=== PATIENT | female | born 1945 | race Caucasian/White ===

== ENCOUNTER → 2018-08-14 07:40 | Outpatient (CLI) | payer OTHER, MEDICARE, SELFPAY ==
[2018-05-02 15:29] VITALS: BMI 23.1
--- NOTE | 2018-08-14 | DI.MG.S_ITS ---
BILATERAL DIGITAL SCREENING MAMMOGRAM 3D/2D WITH CAD: 08/14/2018 CLINICAL: Routine screening. Family history of breast cancer. Comparison is made to exams dated: 08/10/2017 mammogram, 07/27/2016 mammogram, and 07/22/2015 mammogram - [facility]. There are scattered fibroglandular elements in both breasts. Current study was also evaluated with a Computer Aided Detection (CAD) system. No significant masses, calcifications, or other findings are seen in either breast. There has been no significant interval change. IMPRESSION: NEGATIVE There is no mammographic evidence of malignancy. A 1 year screening mammogram is recommended. This exam was interpreted at Station ID: [id number]. NOTE: For mammograms, a report in lay terms will be sent to the patient. Approximately 15% of breast malignancies will not be visualized mammographically. In the management of a palpable breast mass, a negative mammogram must not discourage biopsy of a clinically suspicious lesion. Electronically Signed By: Siva gee/morales:08/14/2018 10:00:38 copy to: Anahi Malone letter sent: Normal Exam ACR BI-RADS Category 1: Negative [id number]
== END ==
PROVIDERS: PCP Family Medicine; Visit Provider Family Medicine
DX: Z12.31 Encounter for screening mammogram for malignant neoplasm of breast (principal); Z80.3 Family history of malignant neoplasm of breast
CPT/HCPCS: 77063; 77067

== ENCOUNTER → 2018-10-14 16:37 | Outpatient (CLI) | payer OTHER, MEDICARE, SELFPAY ==
[2018-05-02 15:29] VITALS: BMI 23.1
--- NOTE | 2018-10-14 16:41 | DI.RAD.S_ITS ---
PROCEDURE: XR CHEST 2V INDICATIONS: COPD EXACERBATION, POSSIBLE RECENT INFLUENZA TECHNIQUE: 2 views of the chest were acquired. COMPARISON: [facility], , CHEST 2 VIEW, 08/17/2017, 8:29. FINDINGS: Surgical changes and devices: None. Lungs and pleura: No acute consolidation. Scattered subsegmental atelectasis and/or scarring. No pleural effusions or pneumothorax. Lungs are hyperinflated in keeping with chronic obstructive physiology Mediastinum: Mediastinal contours are normal. Heart size is normal. Bones and chest wall: No suspicious bony abnormalities. Lateral curvature of the spine and discogenic changes. Soft tissues appear unremarkable. IMPRESSION: No acute disease or interval change. Dictated by: Duncan Reyes M.D. on 10/14/2018 at 17:33 Approved by: Duncan Reyes M.D. on 10/14/2018 at 17:34
== END ==
PROVIDERS: Family Provider Family Medicine; PCP Family Medicine; Visit Provider Internal Medicine
DX: J44.1 Chronic obstructive pulmonary disease with (acute) exacerbation (principal)
CPT/HCPCS: 71046

== ENCOUNTER → 2018-11-18 16:19 | Outpatient (CLI) | payer OTHER, MEDICARE, SELFPAY ==
[2018-05-02 15:29] VITALS: BMI 23.1
--- NOTE | 2018-11-18 16:23 | DI.RAD.S_ITS ---
PROCEDURE: XR CHEST 2V INDICATIONS: COPD,ACUTE EXACERBATION TECHNIQUE: 2 views of the chest were acquired. COMPARISON: [facility], CR, XR CHEST 2V, 10/14/2018, 16:45. FINDINGS: Surgical changes and devices: None. Lungs and pleura: No acute consolidation. Scattered subsegmental atelectasis and/or scarring. No pleural effusions or pneumothorax. Mediastinum: Mediastinal contours are normal. Heart size is normal. Bones and chest wall: No suspicious bony abnormalities. Scoliosis and diffuse spondylosis. Soft tissues appear unremarkable. IMPRESSION: No acute disease Dictated by: Duncan Reyes M.D. on 11/18/2018 at 17:02 Approved by: Duncan Reyes M.D. on 11/18/2018 at 17:02
== END ==
PROVIDERS: Family Provider Internal Medicine Critical Care Medicine; Visit Provider Internal Medicine
DX: J44.1 Chronic obstructive pulmonary disease with (acute) exacerbation (principal)
CPT/HCPCS: 71046

== ENCOUNTER 2019-01-28 16:18 | Inpatient (IN) | payer OTHER, MEDICARE, SELFPAY ==
[2018-05-02 15:29] VITALS: BMI 23.1
[2019-01-28] VITALS (12 sets, daily range): BP systolic 115–158; BP diastolic 63–88; PULSE 81–107; RESP 11–24; TEMP 36.2–37.4; O2SAT 89–99; BMI 22.3
--- NOTE | 2019-01-28 16:42 | ED_ITS ---
HPI - Abdominal Pain General Chief Complaint: Abdominal Pain Stated Complaint: abd pain x2 days Time Seen by Provider: 01/28/19 16:30 Source: patient Mode of arrival: ambulatory Limitations: no limitations History of Present Illness HPI narrative: 73F smoker with hx of COPD, diverticulitis, and RA presents with worsening left lower quadrant pain since yesterday. She has had nausea but no vomiting. She denies fever or chills. She still passing gas and has had loose stools for the past day or 2. Her pain is worse with motion and improves with rest. She was sent by her PCP for evaluation MD complaint: abdominal pain Onset (ago): day(s) Pain Consistency: constant Location: LLQ Severity: moderate Quality: cramping Relieving factors: nothing Exacerbating factors: movement Associated symptoms: nausea Related Data Home Medications Medication Instructions Recorded Confirmed Spiriva with HandiHaler 1 puff INH DAILY #0 09/14/17 01/28/19 Nebulizer: Home Unit 1 ea MISCELLANEOUS DIRECTED 01/28/19 01/28/19 Vitamin C 1 tab PO DAILY 01/28/19 01/28/19 acetaminophen 325 mg PO BID 01/28/19 01/28/19 fluticasone propion-salmeterol 1 puff INHALATION BID 01/28/19 01/28/19 [Advair Diskus] folic acid 1 mg PO DAILY 01/28/19 01/28/19 hydroxychloroquine 200 mg PO DAILY 01/28/19 01/28/19 naproxen 1 tab PO BID 01/28/19 01/28/19 tramadol 50 mg PO BID PRN 01/28/19 01/28/19 trazodone 50 mg PO BEDTIME 01/28/19 01/28/19 vitamin E 1 cap PO DAILY 01/28/19 01/28/19 Previous Rx's Medication Instructions Recorded albuterol sulfate [Ventolin HFA] 2 puff INH Q4H PRN #2 inh 09/15/16 omeprazole 20 mg capsule,delayed 20 mg PO DAILY #90 cap 07/22/18 release Allergies Allergy/AdvReac Type Severity Reaction Status Date / Time Sulfa (Sulfonamide Allergy Severe rash Verified 01/28/19 16:23 Antibiotics) [SULFA (SULFONAMIDE ANTIBIOTICS)] hydrocodone [HYDROCODONE] AdvReac Mild itching Verified 01/28/19 16:23 methotrexate [METHOTREXATE] AdvReac Mild hair loss Verified 01/28/19 16:23 Review of Systems Constitutional Denies chills, Denies fever(s), Denies lethargy and Denies weakness Eyes Denies change in vision, Denies eye discharge, Denies irritation and Denies loss of vision ENT Ears, Nose, Mouth, and Throat: Denies change in voice, Denies neck pain and Denies sore throat Cardiovascular Denies chest pain, Denies irregular heart rhythm, Denies lightheadedness, Denies palpitations, Denies dyspnea, Denies dyspnea on exertion and Denies orthopnea Respiratory Denies cough, Denies dyspnea, Denies dyspnea on exertion and Denies wheezing Gastrointestinal Gastrointestinal: Reports abdominal pain, Denies change in bowel habits, Denies diarrhea, Reports nausea and Denies vomiting Genitourinary Denies hematuria, Denies flank pain, Denies urinary incontinence and Denies urinary urgency Musculoskeletal Denies neck pain Integumentary/Breasts Denies pruritus, Denies erythema, Denies rash and Denies wounds Neurologic Denies confusion, Denies loss of vision and Denies weakness Psychiatric Denies anxiety, Denies confusion, Denies depression, Denies homicidal ideation and Denies suicidal ideation Endocrine Denies palpitations Hematologic/Lymphatic Denies easy bruising Allergic/Immunologic Denies wheezing PFSH Medical History COPD (chronic obstructive pulmonary disease) (Chronic) Surgical History History of (Resolved) Status post colonoscopy (09/28/10) Status post hysterectomy Family History Mother Malignant neoplasm of female breast, unspecified laterality, unspecified site of breast Social History Smoking Status: Former smoker Tobacco: How many years used: 40 Family History Mother Malignant neoplasm of female breast, unspecified laterality, unspecified site of breast Social History Smoking Status: Former smoker Tobacco: How many years used: 40 Exam Narrative Exam Narrative: GENERAL: 73F appears stated age, obviously uncomfortable HEAD: Atraumatic. Normocephalic. No temporal or scalp tenderness. EYES: Pupils equal round and reactive. Extraocular motions intact. No scleral icterus. No injection or drainage. ENT: Nose without bleeding, purulent drainage or septal hematoma. Throat without erythema, tonsillar hypertrophy or exudate. Uvula midline. Airway patent. NECK: Trachea midline. No JVD or lymphadenopathy. Supple, nontender, no meningeal signs. CARDIOVASCULAR: Regular rate and rhythm without murmurs, gallops, or rubs. RESPIRATORY: Clear to auscultation. Breath sounds equal bilaterally. No wheezes, rales, or rhonchi. GASTROINTESTINAL: Abdomen soft, severely tender in LLQ, nondistended. No hepato- splenomegaly, or palpable masses. No guarding. EXTREMITIES: No clubbing, cyanosis, or edema. No joint tenderness, effusion, or edema noted. BACK: Nontender without deformity or crepitance. No flank tenderness. NEURO: AOx3. SKIN: No rash or erythema. Initial Vital Signs Initial Vital Signs: Vital Signs Temperature 98.6 F 01/28/19 16:20 Pulse Rate 101 H 01/28/19 16:20 Respiratory Rate 18 01/28/19 16:20 Blood Pressure 146/70 H 01/28/19 16:20 Pulse Oximetry 96 01/28/19 16:20 Course Orders Ordered: ED Orders 01/28/19 16:24 EKG-12 Lead Stat 01/28/19 16:34 Urine Culture Stat Urine Microscopic Stat 01/28/19 16:58 Complete Blood Count AUTO DIFF Stat Comprehensive Metabolic Panel Stat Lipase Stat Partial Thromboplastin Time Stat Prothrombin Time INR Stat 01/28/19 17:21 CT abdomen pelvis w con Stat Ondansetron HCl (Zofran) 4 mg IV Q4HR PRN PRN Reason: Nausea And Vomiting Discontinued Medications Hydromorphone HCl (Dilaudid) 0.5 mg IV NOW ONE Stop: 01/28/19 18:11 Last Admin: 01/28/19 18:22 Dose: 0.5 mg Sodium Chloride (Normal Saline 0.9%) 1,000 mls @ 1,000 mls/hr IV BOLUS ONE Stop: 01/28/19 19:09 Last Infusion: 01/28/19 19:54 Dose: 0 mls/hr Admin: 01/28/19 18:22 Dose: 1,000 mls/hr Ondansetron HCl (Zofran) 4 mg IV NOW ONE Stop: 01/28/19 16:25 Last Admin: 01/28/19 17:17 Dose: Not Given Consultations Consultation #1: call to Gen Surg (Dr. Rojas) Vital Signs - 8 hr 01/28/19 16:20 01/28/19 16:58 01/28/19 17:30 Temperature 98.6 F Pulse Rate 101 H 94 H 92 H Respiratory Rate 18 Blood Pressure 146/70 H Blood Pressure [Left Arm] 133/77 132/63 Pulse Oximetry 96 99 96 01/28/19 18:30 01/28/19 18:54 Temperature Pulse Rate 96 H 98 H Respiratory Rate 17 Blood Pressure Blood Pressure [Left Arm] 141/82 H 141/82 H Pulse Oximetry 95 97 MDM - Abdominal Pain Lab Data Result diagrams: 01/28/19 16:58 01/28/19 16:58 Lab Results 01/28/19 01/28/19 01/28/19 Range/Units 16:34 16:58 16:58 WBC 13.6 H (4.5-11.0) X10^3/uL RBC 4.38 (4.0-5.2) X10^6/uL Hgb 11.6 L (12.0-16.0) g/dL Hct 35.5 L (36-46) % MCV 81.1 (80-100) fL MCH 26.4 (26-34) PG MCHC 32.6 (30-36) % RDW 15.0 H (11.6-14.8) % Plt Count 201 (150-400) X10^3/uL Neut % (Auto) 85.7 H (50-75) % Lymph % (Auto) 9.3 L (25-40) % [place] % (Auto) 4.7 (3-14) % Eos % (Auto) 0.1 L (2-4) % Baso % (Auto) 0.2 (0-2) % Neut # (Auto) 17068 H (3467-4033) /uL Lymph # (Auto) 1300 (8505-8535) /uL [place] # (Auto) 600 (0-900) /uL Eos # (Auto) 0 (0-450) /uL Baso # (Auto) 0 (0-100) /uL PT 13.3 H (10.1-12.7) SECONDS INR 1.2 (0.9-1.3) APTT 31 (26.4-36.2) SECONDS Sodium (137-145) mmol/L Potassium (3.4-5.1) mmol/L Chloride (98-107) mmol/L Carbon Dioxide (22-32) mmol/L BUN (7-17) mg/dL Creatinine (0.52-1.04) mg/dL Estimated GFR (>60) mL/min BUN/Creatinine Ratio (6-22) Glucose (80-110) mg/dL Calcium (8.4-10.2) mg/dL Total Bilirubin (0.2-1.3) mg/dL AST (14-36) IU/L ALT (9-52) IU/L Alkaline Phosphatase (38-126) U/L Total Protein (6.3-8.2) g/dL Albumin (3.5-5.0) g/dL Globulin (1.7-4.1) g/dL Albumin/Globulin Ratio (1.0-2.8) Lipase (23-300) U/L Urine RBC 5-10/hpf H (0-5/HPF) Urine WBC 0-1/hpf (0-5/HPF) Urine Bacteria None seen (None) Ur Culture Indicated? Specimen cultured 01/28/19 Range/Units 16:58 WBC (4.5-11.0) X10^3/uL RBC (4.0-5.2) X10^6/uL Hgb (12.0-16.0) g/dL Hct (36-46) % MCV (80-100) fL MCH (26-34) PG MCHC (30-36) % RDW (11.6-14.8) % Plt Count (150-400) X10^3/uL Neut % (Auto) (50-75) % Lymph % (Auto) (25-40) % [place] % (Auto) (3-14) % Eos % (Auto) (2-4) % Baso % (Auto) (0-2) % Neut # (Auto) (5606-9372) /uL Lymph # (Auto) (2893-9237) /uL [place] # (Auto) (0-900) /uL Eos # (Auto) (0-450) /uL Baso # (Auto) (0-100) /uL PT (10.1-12.7) SECONDS INR (0.9-1.3) APTT (26.4-36.2) SECONDS Sodium 137 (137-145) mmol/L Potassium 3.8 (3.4-5.1) mmol/L Chloride 102 (98-107) mmol/L Carbon Dioxide 24 (22-32) mmol/L BUN 10 (7-17) mg/dL Creatinine 0.70 (0.52-1.04) mg/dL Estimated GFR > 60.0 (>60) mL/min BUN/Creatinine Ratio 14.3 (6-22) Glucose 118 H (80-110) mg/dL Calcium 9.6 (8.4-10.2) mg/dL Total Bilirubin 1.6 H (0.2-1.3) mg/dL AST 22 (14-36) IU/L ALT 14 (9-52) IU/L Alkaline Phosphatase 56 (38-126) U/L Total Protein 7.2 (6.3-8.2) g/dL Albumin 4.2 (3.5-5.0) g/dL Globulin 3.0 (1.7-4.1) g/dL Albumin/Globulin Ratio 1.4 (1.0-2.8) Lipase 27 (23-300) U/L Urine RBC (0-5/HPF) Urine WBC (0-5/HPF) Urine Bacteria (None) Ur Culture Indicated? Point of care testing: Urine Dip Bedside Urine Glucose Negative Bedside Urine Bilirubin - Negative Bedside Urine Ketone ++ 40 Urine Specific [place] 1.020 Bedside Urine Occult Blood + Bedside Urine pH 6.0 Bedside Urine Protein +/- 15 Bedside Urine Urobilinogen +/- 1mg Bedside Urine Nitrite - Negative Bedside Urine Leukocytes +/- [address] scan - abdomen: Radiologist's impression: [address] [id number] [address] Scan Report Signed Patient: Valarie Saleh LMR#: [id number] : 1945Acct:[id number] Age/Sex: 73 / FDate of Service: 01/28/19 Loc: ED Accession Number: [id number] Procedure: CT abdomen pelvis w con Ordering Provider: Gio Lazar D.O. PROCEDURE: CT ABDOMEN PELVIS W CON INDICATIONS: severe LLQ pain TECHNIQUE: After the administration of intravenous contrast, 5 mm thick sections acquired from the diaphragm to the symphysis. 5 mm coronal and sagittal reformats were acquired. For radiation dose reduction, the following was used: automated exposure control, adjustment of mA and/or kV according to patient size. COMPARISON: [facility], MR, L-SPINE WITHOUT CONTRAST, 08/30/2017, 7:12. [facility], CR, L-SPINE 2-3 VIEWS, 08/22/2017, 14:01. [facility], CT, THORAX WITHOUT CONTRAST, 10/12/2016, 10:44. [facility], CT, ABDOMEN/PELVIS WITH CONTRAST, 06/14/2016, 8:15. FINDINGS: Image quality: Excellent. ABDOMEN: Lung bases: Mild likely atelectasis is seen within the right lower lobe. Heart size is normal. Solid organs: Liver is normal in size and enhancement. Incidental note is made of focal fatty infiltration adjacent to the falciform ligament, which is not regarded to be pathologic. Gallbladder wall is not thickened. Biliary system is non dilated. Pancreas enhances normally. Spleen is normal in size and enhancement. No adrenal nodules. Kidneys demonstrate normal size and enhancement, without hydronephrosis. Peritoneum and bowel: Abnormal dilatation of proximal small bowel loops are see n, which measure up to 2.9 cm. There is a transition point observed within the left midabdomen, which is best seen on series 5 image 43, yet also seen on series 2 image 41 and on series 4 image 24. The more distal small bowel loops are decompressed. Diverticulosis is seen of the sigmoid colon. Minimal surrounding inflammatory changes are seen. No free air is seen. Minimal pelvic free fluid is seen. Nodes and vessels: No retroperitoneal or mesenteric adenopathy by size criteria. Aorta and inferior vena cava are normal in size. Atherosclerotic calcification is noted. Miscellaneous: No ventral hernias. PELVIS: Genitourinary: Bladder wall thickness is normal. Miscellaneous: No inguinal hernias or adenopathy. Bones: No suspicious bony lesions. There is an L3 compression deformity seen, with 40-50% loss of height anteriorly. No acute features are seen. This compression deformity is similar to the prior MRI dated 08/30/17. Degenerative changes are seen, which are most prominent involving the lower lumbar spine. Mild dextroconvex scoliotic curvature is seen. IMPRESSION: Small bowel obstruction, with a transition point seen within the left midabdomen. This is felt most likely be related to an adhesion. Please correlate with known patient history. Mild diverticulitis also seen. Incidental note is made of: L3 compression deformity Dextroconvex scoliosis Note: Case discussed by telephone with Dr. Lazar at 5:49 PM [place] time on January 28, 2019. Dictated by: Estiven Robertson M.D. on 01/28/2019 at 16:42 Approved by: Estiven Robertson M.D. on 01/28/2019 at 16:50 Discharge Plan Departure Patient Disposition: Admitted As Inpatient Clinical Impression: Small bowel obstruction Referrals: Anahi Malone ARNP [Primary Care Provider] - Admit Date/Time: 01/28/19 18:55 Admit Provider: Jus Rojas
[2019-01-28 16:45] LABS: Bacteria Urine None Seen
[2019-01-28 17:05] LABS: Add Manual Diff / Slide Review NO; Basophils Absolute Auto 0 /uL (0-100); Basophils Percent Auto 0.2 % (0-2); Eosinophils Absolute Auto 0 /uL (0-450); Eosinophils Percent Auto 0.1 % (2-4); Hematocrit 35.5 % (36-46); Hemoglobin 11.6 g/dL (12.0-16.0); Lymphocytes Absolute Auto 1300 /uL (1100-4500); Lymphocytes Percent Auto 9.3 % (25-40); Mean Corpuscular HGB Conc 32.6 % (30-36); Mean Corpuscular Hemoglobin 26.4 PG (26-34); Mean Corpuscular Volume 81.1 fL (80-100); Monocytes Absolute Auto 600 /uL (0-900); Monocytes Percent Auto 4.7 % (3-14); Neutrophils Absolute Auto 11700 /uL (1500-7000); Neutrophils Percent Auto 85.7 % (50-75); Platelet Count 201 X10^3/uL (150-400); Red Blood Cell Count 4.38 X10^6/uL (4.0-5.2); White Blood Cell Count 13.6 X10^3/uL (4.5-11.0)
[2019-01-28 17:11] LABS: INR 1.2 (0.9-1.3); Prothrombin Time 13.3 SECONDS (10.1-12.7)
[2019-01-28 17:14] LABS: PTT Partial Thromboplastin Tim 31 SECONDS (26.4-36.2)
[2019-01-28 17:15] LABS: Alanine Aminotransferase 14 IU/L (9-52); Albumin 4.2 g/dL (3.5-5.0); Albumin Globulin Ratio 1.4 (1.0-2.8); Alkaline Phosphatase 56 U/L (38-126); Aspartate Aminotransferase 22 IU/L (14-36); BUN Creatinine Ratio 14.3 (6-22); Bilirubin Total 1.6 mg/dL (0.2-1.3); Blood Urea Nitrogen 10 mg/dL (7-17); Calcium 9.6 mg/dL (8.4-10.2); Carbon Dioxide 24 mmol/L (22-32); Chloride 102 mmol/L (98-107); Estimated Glomerular Filt Rate > 60.0 mL/min (>60); Glucose 118 mg/dL (80-110); HEMOLYSIS < 15 (0-50); Lipase 27 U/L (23-300); Potassium 3.8 mmol/L (3.4-5.1); Sodium 137 mmol/L (137-145); Total Protein 7.2 g/dL (6.3-8.2)
[2019-01-28 17:16] LABS: Culture Indicated Urine Specimen Cultured; RBC Urine 5-10/HPF (0-5/HPF); WBC Urine 0-1/HPF (0-5/HPF)
--- NOTE | 2019-01-28 17:21 | DI.CT.S_ITS ---
PROCEDURE: CT ABDOMEN PELVIS W CON INDICATIONS: severe LLQ pain TECHNIQUE: After the administration of intravenous contrast, 5 mm thick sections acquired from the diaphragm to the symphysis. 5 mm coronal and sagittal reformats were acquired. For radiation dose reduction, the following was used: automated exposure control, adjustment of mA and/or kV according to patient size. COMPARISON: [facility], MR, L-SPINE WITHOUT CONTRAST, 08/30/2017, 7:12. [facility], CR, L-SPINE 2-3 VIEWS, 08/22/2017, 14:01. [facility], CT, THORAX WITHOUT CONTRAST, 10/12/2016, 10:44. [facility], CT, ABDOMEN/PELVIS WITH CONTRAST, 06/14/2016, 8:15. FINDINGS: Image quality: Excellent. ABDOMEN: Lung bases: Mild likely atelectasis is seen within the right lower lobe. Heart size is normal. Solid organs: Liver is normal in size and enhancement. Incidental note is made of focal fatty infiltration adjacent to the falciform ligament, which is not regarded to be pathologic. Gallbladder wall is not thickened. Biliary system is non dilated. Pancreas enhances normally. Spleen is normal in size and enhancement. No adrenal nodules. Kidneys demonstrate normal size and enhancement, without hydronephrosis. Peritoneum and bowel: Abnormal dilatation of proximal small bowel loops are seen, which measure up to 2.9 cm. There is a transition point observed within the left midabdomen, which is best seen on series 5 image 43, yet also seen on series 2 image 41 and on series 4 image 24. The more distal small bowel loops are decompressed. Diverticulosis is seen of the sigmoid colon. Minimal surrounding inflammatory changes are seen. No free air is seen. Minimal pelvic free fluid is seen. Nodes and vessels: No retroperitoneal or mesenteric adenopathy by size criteria. Aorta and inferior vena cava are normal in size. Atherosclerotic calcification is noted. Miscellaneous: No ventral hernias. PELVIS: Genitourinary: Bladder wall thickness is normal. Miscellaneous: No inguinal hernias or adenopathy. Bones: No suspicious bony lesions. There is an L3 compression deformity seen, with 40-50% loss of height anteriorly. No acute features are seen. This compression deformity is similar to the prior MRI dated 08/30/17. Degenerative changes are seen, which are most prominent involving the lower lumbar spine. Mild dextroconvex scoliotic curvature is seen. IMPRESSION: Small bowel obstruction, with a transition point seen within the left midabdomen. This is felt most likely be related to an adhesion. Please correlate with known patient history. Mild diverticulitis also seen. Incidental note is made of: L3 compression deformity Dextroconvex scoliosis Note: Case discussed by telephone with Dr. Lazar at 5:49 PM [place] time on January 28, 2019. Dictated by: Estiven Robertson M.D. on 01/28/2019 at 16:42 Approved by: Estiven Robertson M.D. on 01/28/2019 at 16:50
[2019-01-28] MEDS: HYDROMORPHONE 0.5 MG INJ IV (18:22)
[2019-01-28] MEDS: SODIUM CHLORIDE 0.9% 1,000 ML 1000 ML IV (18:22)
--- NOTE | 2019-01-28 19:14 | PM.HP.1 ---
History of Present Illness Date Patient Seen: 01/28/19 Time Patient Seen: 19:14 Chief complaint: abd pain x2 days Narrative: The patient is a woman who developed abdominal pain yesterday. She had been feeling fairly normal up until then. Had been passing large amount of gas. Yesterday however she stopped passing gas and developed diffuse abdominal pain. She has not had pain quite like this before. She had 3 loose bowel movements yesterday into today. Her only prior abdominal operation was a . A few years ago she was treated for C diff and has also been told she had Crohn's disease based on a colonoscopy. However she saw a GI specialist and they told her she did not have Crohn's disease. Her pain increases with movement. Is about 8/10. She sustained a compression fracture of her spine in August after a fall. Patient History Medical History COPD (chronic obstructive pulmonary disease) (Chronic) Surgical History History of (Resolved) Status post colonoscopy (09/28/10) Status post hysterectomy Family History Mother Malignant neoplasm of female breast, unspecified laterality, unspecified site of breast Social History Smoking Status: Former smoker Tobacco: How many years used: 40 Family & Social History Family History Mother Malignant neoplasm of female breast, unspecified laterality, unspecified site of breast Safety & Behavioral: Feels Safe in Current Yes Environment Been Physically Hurt or No Threatened By a Person Tobacco & Substance use: Smoking Status Former smoker alcohol intake frequency 0-2 drinks per day Substance Use Type does not use Meds Home Medications Medication Instructions Recorded Confirmed Type albuterol sulfate [Ventolin HFA] 2 puff INH Q4H PRN #2 inh 09/15/16 01/28/19 Rx Spiriva with HandiHaler 1 puff INH DAILY #0 09/14/17 01/28/19 History omeprazole 20 mg capsule,delayed 20 mg PO DAILY #90 cap 07/22/18 01/28/19 Rx release Nebulizer: Home Unit 1 ea MISCELLANEOUS DIRECTED 01/28/19 01/28/19 History Vitamin C 1 tab PO DAILY 01/28/19 01/28/19 History acetaminophen 325 mg PO BID 01/28/19 01/28/19 History fluticasone propion-salmeterol 1 puff INHALATION BID 01/28/19 01/28/19 History [Advair Diskus] folic acid 1 mg PO DAILY 01/28/19 01/28/19 History hydroxychloroquine 200 mg PO DAILY 01/28/19 01/28/19 History naproxen 1 tab PO BID 01/28/19 01/28/19 History tramadol 50 mg PO BID PRN 01/28/19 01/28/19 History trazodone 50 mg PO BEDTIME 01/28/19 01/28/19 History vitamin E 1 cap PO DAILY 01/28/19 01/28/19 History Allergies Allergy/AdvReac Type Severity Reaction Status Date / Time Sulfa (Sulfonamide Allergy Severe rash Verified 01/28/19 16:23 Antibiotics) [SULFA (SULFONAMIDE ANTIBIOTICS)] hydrocodone [HYDROCODONE] AdvReac Mild itching Verified 01/28/19 16:23 methotrexate [METHOTREXATE] AdvReac Mild hair loss Verified 01/28/19 16:23 Review of Systems Review of Systems The patient wears glasses. Denies pain arise double vision no earache sore throats no tooth aches no trouble swallowing. Patient denies cough at this time. She does have COPD and uses an inhaler. She had 3 rounds of antibiotics for exacerbation several months ago. Patient denies heart problems or chest pain. No black or bloody bowel movements. Last colonoscopy about 5 years ago. No kidney stones. Had a urinary tract infection treated with the antibiotics she took for her COPD. Retested today urinalysis was negative. No seizures or blackouts. She does have rheumatoid arthritis. Exam Vital Signs (past 8 hours): - 01/28/19 16:20 01/28/19 16:58 01/28/19 17:30 Temperature 98.6 F Pulse Rate 101 H 94 H 92 H Respiratory Rate 18 Blood Pressure 146/70 H Blood Pressure [Left Arm] 133/77 132/63 Pulse Oximetry 96 99 96 01/28/19 18:30 01/28/19 18:54 Temperature Pulse Rate 96 H 98 H Respiratory Rate 17 Blood Pressure Blood Pressure [Left Arm] 141/82 H 141/82 H Pulse Oximetry 95 97 Oxygen Delivery Method Room Air Narrative Exam Narrative: Operative no apparent distress. Her eyes are nonicteric. Pupils equal round reactive to light. Oral mucosa is dry no open lesions. No swelling or splits the lips. Ears without lesion. Her neck is without mass. No nodes in the neck or supraclavicular areas. Trachea is midline and mobile. Thyroid is not enlarged. No tenderness of the thyroid. Lungs are clear to auscultation with an increased expiratory phase. No rales or rhonchi. Heart regular rate and rhythm without murmur gallop. No bruit in the neck. Her abdome is distended across the lower abdomen. The upper is fairly flat. She has a low incision/scar. Her abdomen is soft. She has tenderness across her lower abdomen. No inguinal hernias appreciated no ventral hernias appreciated. She is alert oriented x3. Speech rate and content are appropriate. Affect is appropriate. Her extremities without cyanosis clubbing or edema. She has decreased hair in her lower extremities. 2+ dorsalis pedal pulses. Objective Imaging CT scan - abdomen: My impression: Small-bowel obstruction. Labs Result Diagrams: 01/28/19 16:58 01/28/19 16:58 Labs: Laboratory Results - last 24 hr 01/28/19 01/28/19 01/28/19 16:34 16:58 16:58 WBC 13.6 H RBC 4.38 Hgb 11.6 L Hct 35.5 L MCV 81.1 MCH 26.4 MCHC 32.6 RDW 15.0 H Plt Count 201 Neut % (Auto) 85.7 H Lymph % (Auto) 9.3 L [place] % (Auto) 4.7 Eos % (Auto) 0.1 L Baso % (Auto) 0.2 Neut # (Auto) 88107 H Lymph # (Auto) 1300 [place] # (Auto) 600 Eos # (Auto) 0 Baso # (Auto) 0 PT 13.3 H INR 1.2 APTT 31 Sodium Potassium Chloride Carbon Dioxide BUN Creatinine Estimated GFR BUN/Creatinine Ratio Glucose Calcium Total Bilirubin AST ALT Alkaline Phosphatase Total Protein Albumin Globulin Albumin/Globulin Ratio Lipase Urine RBC 5-10/hpf H Urine WBC 0-1/hpf Urine Bacteria None seen Ur Culture Indicated? Specimen cultured 01/28/19 16:58 WBC RBC Hgb Hct MCV MCH MCHC RDW Plt Count Neut % (Auto) Lymph % (Auto) [place] % (Auto) Eos % (Auto) Baso % (Auto) Neut # (Auto) Lymph # (Auto) [place] # (Auto) Eos # (Auto) Baso # (Auto) PT INR APTT Sodium 137 Potassium 3.8 Chloride 102 Carbon Dioxide 24 BUN 10 Creatinine 0.70 Estimated GFR > 60.0 BUN/Creatinine Ratio 14.3 Glucose 118 H Calcium 9.6 Total Bilirubin 1.6 H AST 22 ALT 14 Alkaline Phosphatase 56 Total Protein 7.2 Albumin 4.2 Globulin 3.0 Albumin/Globulin Ratio 1.4 Lipase 27 Urine RBC Urine WBC Urine Bacteria Ur Culture Indicated? Assessment & Plan Assessment & Plan narrative: Patient is a 73-year-old woman with COPD who has a of small-bowel obstruction most likely due to adhesions. She also suffers from rheumatoid arthritis and has had a diagnosis of Crohn's disease and C difficile in the past. The Crohn's disease diagnosis was described it by GI tract specialist. In any event she appears to have a small-bowel obstruction. She is tender with an elevated white count. For these reasons I believe she needs an urgent operation. Will proceed to the OR. I have discussed laparoscopic and open procedures with her risks of bleeding infection future bowel obstruction, possible need to resect bowel an ellipse anastomotic leak all discussed with her. Hernia at the operative site also discussed. She appears to understand and is appropriately concerned and wishes to proceed.
[2019-01-28] MEDS: LACTATED RINGERS 1,000 ML 42 ML IV ×2 (20:58→22:16)
[2019-01-28] MEDS: CEFOTETAN 2 GM/50 ML PIGGYBACK IV (21:03)
--- NOTE | 2019-01-28 21:41 | SUR.OPER ---
Supine on padded OR bed, head on pillow, arms padded and tucked at side, legs uncrossed, safety belt at thigh, tape over blanket over lower legs .
[2019-01-28] MEDS: BUPIVACAINE 0.5% (PF) VIAL 30 ML INJ (21:53)
--- NOTE | 2019-01-28 23:03 | PM.OP.1 ---
Operative Date/Time/Diagnoses Date of procedure: 01/28/19 Time of procedure: 23:03 Pre-op diagnosis: Small-bowel obstruction. Possible diverticulitis based on CT scan. Post-op diagnosis: same (Diverticulitis causing small bowel obstruction. Cyst on left tube. Left Tube and Ovary involved in the inflammatory process.) Procedure & Clinicians Procedure: Laparoscopic exploration and adhesiolysis with placement of drain. Same procedure as scheduled: Yes Indications: Small-bowel obstruction on CT scanning. Incidental note was made of diverticulitis. The patient was quite tender and had an elevated white count. She was taken the operating room Surgeon: Jus Rojas Click Yes if Unassisted: Yes Anesthesia Type: General Operative Notes Findings: Inflammation of the sigmoid colon with adherence of the left tube and ovary and the small bowel to the area of inflammation. There were no adhesions of the small bowel anywhere except at the point of adhesion to the colon inflammation. Closure Type: primary Specimen(s): none sent Applied: drain(s) (10 mm Fredy-Medina placed along the left abdomen medial to the sigmoid colon) Estimated Blood Loss (mL): 10 Blood products transfused: none Procedure in detail: The patient was placed supine on the operating room table and underwent general endotracheal anesthesia. Her arms were tucked. A Castañeda was placed. She was prepped and draped in the usual fashion. Local anesthetic was infiltrated and a small incision made to the right of the umbilicus. Was carried through the midline into the peritoneal cavity under direct vision. There was no fluid in the abdomen. Stay sutures of 0 Vicryl were placed in the fascia. A 12 mm port was placed and secured with the stay sutures. The abdomen was insufflated. A 2nd port was placed in the right upper abdomen and this was a 5 mm port dissecting through a it I determined very quickly that the small bowel was stuck to the sigmoid colon as was the tube and ovary. The colon was inflamed. Using blunt careful dissection I the ovary and tube off the colon and also the small bowel. There was exudate on the colon as well as the small bowel. There was a large cyst on the tube which was a bit unusual. Photos were taken to discuss with the jumpbasting machine operator later. Another port was added in the right lower quadrant. I ran the bowel from the cecum proximal to the ligament of Treitz. Once I had freed the intestine from the colon there were no other attachments throughout the small bowel. There was no grasping of the bowel while manipulating it. I then ran the bowel back from the ligament of Treitz to the cecum. There were no other findings. There was no spillage of intestinal contents. There was no significant bleeding. The left abdomen and pelvis were irrigated and suctioned free of fluid. In examining the area of the inflamed sigmoid was very close to the left lower quadrant. If I placed a drain at this location I would have trouble getting enough length on it so I decided to use the right lower quadrant incision/port to place a drain. A 10 mm drain was placed and laid directly medial to the colon. It was covered with omentum. The drain was secured with a 3 0 nylon. The ports were all removed. The air evacuated. The stay sutures at the umbilicus were tied and an additional 200 PDS was placed between the 0 Vicryl was. The wounds were irrigated the skin was closed in all areas with 4 0 Vicryl subcuticular stitches. Steri-Strips and dressing were applied. Patient was awakened, extubated and taken to recovery room good condition. Complications: none Condition: stable Disposition: PACU Plan for aftercare: Admit. Broad-spectrum antibiotics.
[2019-01-29] VITALS (16 sets, daily range): BP systolic 119–153; BP diastolic 63–92; PULSE 68–94; RESP 14–18; TEMP 36.3–37.6; O2SAT 91–97
[2019-01-29] MEDS: MORPHINE 4 MG/ML INJ IV ×5 (00:21→21:05)
[2019-01-29] MEDS: ONDANSETRON 4 MG/2 ML INJ IV (00:21)
[2019-01-29] MEDS: LACTATED RINGERS 1,000 ML 125 ML IV ×3 (00:27→17:12)
[2019-01-29] MEDS: PIPERACILLIN-TAZO 3.375 GM/50 ML FROZ.PIGGY IV ×5 (00:35→23:27)
[2019-01-29] MEDS: KETOROLAC 15 MG/ML VIAL IV ×3 (01:51→20:01)
[2019-01-29 05:39] LABS: Add Manual Diff / Slide Review NO; Basophils Absolute Auto 0 /uL (0-100); Basophils Percent Auto 0.1 % (0-2); Eosinophils Absolute Auto 0 /uL (0-450); Hematocrit 31.9 % (36-46); Hemoglobin 10.4 g/dL (12.0-16.0); Lymphocytes Absolute Auto 600 /uL (1100-4500); Mean Corpuscular HGB Conc 32.7 % (30-36); Mean Corpuscular Hemoglobin 26.9 PG (26-34); Mean Corpuscular Volume 82.1 fL (80-100); Monocytes Absolute Auto 200 /uL (0-900); Monocytes Percent Auto 1.6 % (3-14); Neutrophils Absolute Auto 13200 /uL (1500-7000); Neutrophils Percent Auto 94.3 % (50-75); Platelet Count 172 X10^3/uL (150-400); Red Blood Cell Count 3.89 X10^6/uL (4.0-5.2); Red Cell Distribution Width 14.7 % (11.6-14.8)
[2019-01-29 05:47] LABS: Alanine Aminotransferase 10 IU/L (9-52); Albumin 3.5 g/dL (3.5-5.0); Albumin Globulin Ratio 1.3 (1.0-2.8); Alkaline Phosphatase 49 U/L (38-126); Aspartate Aminotransferase 19 IU/L (14-36); BUN Creatinine Ratio 12.9 (6-22); Bilirubin Total 0.6 mg/dL (0.2-1.3); Blood Urea Nitrogen 9 mg/dL (7-17); Calcium 8.5 mg/dL (8.4-10.2); Carbon Dioxide 25 mmol/L (22-32); Chloride 105 mmol/L (98-107); Estimated Glomerular Filt Rate > 60.0 mL/min (>60); Globulin 2.7 g/dL (1.7-4.1); Glucose 135 mg/dL (80-110); HEMOLYSIS < 15 (0-50); Magnesium 1.9 mg/dL (1.6-2.3); Potassium 4.3 mmol/L (3.4-5.1); Sodium 138 mmol/L (137-145); Total Protein 6.2 g/dL (6.3-8.2)
[2019-01-29] MEDS: ENOXAPARIN 40 MG/0.4 ML SYRINGE SUBCUT (09:33)
[2019-01-29] MEDS: TIOTROPIUM BROMIDE 18 MCG INHALER INH (09:38)
[2019-01-29] MEDS: FLUTICASONE/SALMETEROL 250/50 14 PUFF DISKUS INH ×2 (09:38→20:23)
[2019-01-29] MEDS: ALBUTEROL 2.5 MG/3 ML NEB (ADULT) INH ×2 (09:39→20:23)
--- NOTE | 2019-01-29 10:49 | PT.IIE ---
Surgery Performed Operation Date: 01/28/19 20:15 Actual Procedures p Exploratory laparoscopic lysis of adhesions and placement of drain (Left) - Jus Rojas MD Surgical History (Last Reviewed 01/28/19 @ 19:22 by Jus Rojas MD) History of (Resolved) Status post colonoscopy (09/28/10) Status post hysterectomy Medical History (Last Reviewed 01/28/19 @ 19:22 by Jus Rojas MD) COPD (chronic obstructive pulmonary disease) (Chronic) Physical Therapy Inpatient Evaluation/Re-Eval M1 PT/OT-IP Prior Functional Status Start: 01/29/19 12:35 Freq: NEEDED Status: Active Protocol: Document 01/29/19 10:49 AB (Rec: 01/29/19 12:48 AB [id number]) Medical Review Prior Functional Status Medical History Reviewed Yes Communication able to make needs known Mobility and Gait pt stated that she is independent with all mobilities and ambulation without AD Social History Household Members family Living Arrangements House Number of Floors (Floors) One Floor Number of Stairs To Enter/Railing? has 2 steps to enter without rails Home Environment Standard Height Toilet Walk in Shower Employment Status [employer] Mechan[employer] Employed Additional Social History Comment daughter and grand daughter ( 7y/o) lives with pt. pt stated that she has a really high bed that even when she uses a step stool she has to climb into it. 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 PT-IP Current Condition Start: 01/29/19 12:35 Freq: NEEDED Status: Active Protocol: Document 01/29/19 10:49 AB (Rec: 01/29/19 12:48 AB [id number]) Physical Therapy Current Condition Current Condition Evaluation Date 01/29/19 Treatment Diagnosis SBO s/p ex-lap; difficulty in walking Onset Date 01/28/19 Precautions Abdominal Surgery Precautions Log Roll Lifting Restrictions Gait Belt above Incisional Area M3 PT-IP Subjective Start: 01/29/19 12:35 Freq: NEEDED Status: Active Protocol: Document 01/29/19 10:49 AB (Rec: 01/29/19 12:48 AB [id number]) Subjective Physical Therapy Visit Type Type Initial Evaluation Visit Start Time 10:49 Visit Stop Time 11:38 Total Visit Minutes 49 Number of SUPPLY CHAIN CONSULTANT Visits 0 Physical Therapy Visit Comments Patient Comments pt agreeable to do PT Therapy Pain Assessment Pain When Pain Assessed At Rest Pain Present Pain Present Pain Reported Location low abd Intensity 4 Pain Management Techniques Re-positioning Timing of Activity with Medications M4 PT-IP Mobility and Gait Start: 01/29/19 12:35 Freq: NEEDED Status: Active Protocol: Document 01/29/19 10:49 AB (Rec: 01/29/19 12:48 AB [id number]) PT-Bed Mobility Assessment Rolling Type of Rolling Log Rolling Level of Assist Standby Assistance Supine to Sit Supine to Sit Standby Assistance Scooting Scooting to Edge of Bed Standby Assistance PT-Transfer Assessment Sit to and From Stand Sit to and from Stand Contact Guard Assistance 1 Person Assistance Use of Upper Extremities Equipment Transfer Assistive Device Gait Belt Front Wheeled Walker Orthotic/Prosthetic Devices or Brace: No Transfers Transfer Destination Chair Transfer Technique pt ambulated using FWW Transfer Ability Level of Assist Contact Guard Assistance 1 Person Assistance Use of Upper Extremities Gait Assessment Gait Gait Assistance Required: Contact Guard Assist Minimum Assistance Distance (Feet) 30 Assistive Devices Assistive Device None Gait Belt Front Wheeled Walker Orthotic/Prosthetic Devices or Brace: No Gait Deviations General Gait Pattern Decreased Stride Length Decreased Feet Clearance Factors Limiting Gait Function Factors Limiting Gait Function Decreased Activity Tolerance Decreased Strength Pain Poor Balance Poor Safety Awareness Comments Gait Comments pt ambulated in room using FWW ~ 20 ft CGA. Assessed ambulation without AD CGA to min A and cues for safety ~ 30 ft. pt stated that she feels oozy due to her morphine. O2 sat resting at room air: 91 % O2 sat after ambulation at room air: 88% instructed pt on PLB and O2 sat increased to 96% PT-Balance Assessment Sitting Balance and Reactions Static Sitting Balance Ability Good Dynamic Sitting Balance Ability Good Standing Balance and Reactions Static Standing Balance Ability Fair Dynamic Standing Balance Ability Fair Device Used FWW M5 PT-IP Objective Assessments Start: 01/29/19 12:35 Freq: NEEDED Status: Active Protocol: Document 01/29/19 10:49 AB (Rec: 01/29/19 12:48 AB [id number]) Orientation Orientation/Cognition Level of Alertness Alert Orientation Name Place Situation Language Function Ability No Deficits Noted Safety Awareness Understands Safety Issues Memory Description No Deficits Noted Gross Range of Motion Lower Extremity ROM Assessment Within Functional Limits Strength Lower Extremity Strength Assessment Within Functional Limits Coordination Assessment Gross Coordination Gross Coordination WNL Sensation Assessment Sensation Gross Sensation WNL Muscle Tone Muscle Tone WNL Yes M6 PT-IP Treatment Start: 01/29/19 12:35 Freq: NEEDED Status: Active Protocol: Document 01/29/19 10:49 AB (Rec: 01/29/19 12:48 AB [id number]) Physical Therapy Treatment Education Education Provided Precautions Safety M7 PT-IP Assessment and Plan Start: 01/29/19 12:35 Freq: NEEDED Status: Active Protocol: Document 01/29/19 10:49 AB (Rec: 01/29/19 12:48 AB [id number]) PT Summary Assessment and Plan Potential Rehabilitation Potential Good Status of Condition at Evaluation Stable Summary Impairments Pain ROM Strength Balance Coordination Sensation Cognition Bed Mobility Transfers Gait Activity Tolerance Assessment Summary pt requiring one person assist with PT. recommending use of FWW at this time but PT will continue ambulation without AD . informed pt to obtain a FWW and to have her daughter measure her bed height at home . DME list given. will continue to assess progress. Goals Bed Mobility Goal Independent Transfer Goal Independent Gait Goal Independent Gait Distance 200 Other Goals up/down 2 steps without rails SBA Days to Meet Goals 5 Frequency of Treatment Frequency Of Treatment Once a Day Treatment Plan Physical Therapy Treatment Plan Bed Mobility Training Transfer Training Gait Training Therapeutic Exercise Balance Retraining Post Op Education Discharge Planning Hot or Cold Pack Neuromuscular Re-ed Coordination Retraining Manual Therapy Recommendations To Nursing Amount of Assist Needed 1 Person Assist Discharge Recommendations PT Discharge Recommendations Home with Assistance Equipment Needed for Home Before FWW: pt will try to borrow one Discharge
--- NOTE | 2019-01-29 14:20 | CM.DANOTE ---
Patient is a 73 year old female who was admitted on 01/28/19 for Abd Pain. Pt has [facility] and [facility] for insurance and her PCP is Dr. Anahi Malone. EMR was reviewed. Per Surgeon, pt with SBO and needing surgery and tolerated surgical procedure yesterday 01/28/19. Per PT, pt able to participate in therapy today and likely will progress enough to d/c home with Dtr assist and outpt PT. SW met bedside with pt and adult Dtr Phoebe and explained role and pt confirmed that she lives at home in [place] and that her adult Dtr and granddtr currently live with her for a few months temporarily. 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 Pt quite active at baseline and drives and does not typically use equipment to ambulate. Pt denies any hx of HH or SNF and states that she recently completed an updated Living Will which documents her Dtr and best friend as DPOA and executor and SW encouraged possible copy for the hospital to have on file. Pt states she has had a hard year as she fell in August in her kitchen and ended up with a compression fx and now SBO surgery. Pt preference is home when medically stable and states her Dtr will be able to provide some assist as well as her local supportive friend and that her Dtr will hopefully be able to get to [employer] on Sunday to get a 4WW for d/c. Plan: SW to follow closely to confirm pt safe for d/c home with Dtr assist and any further identified discharge planning needs. GONZÁLEZ Kaplan Discharge Planning/Care Management CM Discharge Assessment Start: 01/29/19 14:17 Freq: Status: Active Protocol: Document 01/29/19 14:18 BF (Rec: 01/29/19 14:20 BF [id number]) Discharge Planning Assessment Assigned Utility Teller GONZÁLEZ Wilkerson DPOA/Assigned Designee Name Dtr and friend Advance Directives? No Advance Directives on File No History Provided By Patient Family Member Medical Record Has Patient been admitted in last 30 No days? Prior Living Arrangements House Household Members family Type of transporation used prior to Drives own vehicle admit Independent with ADL's Yes Is patient alert and oriented? Yes Caregiver for Another Yes: Helps care for her 7 yr old granddtr DME Already Rented / Owned Cane Comment Needs walker with wheels Comment Likely home pending further PT /OT Barriers to Discharge No Discharge Plan Home Community Services Physical Therapy Occupational Therapy Transportation Arrangement Dtr likely can provide transport home when stable if safe for home. Additional Comment Waiting for futher PT/OT Whiteboard Updated in Patient Room with Yes name and ext. # of Utility Teller Review Status In Process Please Provide Date Initial DC 01/29/19 Assessment Was Performed Next Review Type Continued Stay Review
--- NOTE | 2019-01-29 20:04 | P.PN_ITS ---
Subjective Date Patient Seen: 01/29/19 Time Patient Seen: 20:00 Interval history: Patient seen this am and this pm. Feel about the same as this am and a little better than yesterday. No flatus Exam Vital Signs (past 8 hours): - 01/29/19 15:20 01/29/19 15:30 Temperature 98.3 F Pulse Rate 89 Respiratory Rate 17 Blood Pressure 141/77 H Pulse Oximetry 95 94 Oxygen Delivery Method Room Air Oxygen Flow Rate 0 Narrative Exam Narrative: lungs: good effort. clear Heart RRR without m or g abd distended, soft. Less tender than yesterday. Drainage serosanguineous. Objective Labs Result Diagrams: 01/29/19 05:10 01/29/19 05:10 Labs: Laboratory Results - last 24 hr 01/29/19 01/29/19 05:10 05:10 WBC 14.0 H RBC 3.89 L Hgb 10.4 L Hct 31.9 L MCV 82.1 MCH 26.9 MCHC 32.7 RDW 14.7 Plt Count 172 Neut % (Auto) 94.3 H Lymph % (Auto) 4.0 L [place] % (Auto) 1.6 L Eos % (Auto) 0.0 L Baso % (Auto) 0.1 Neut # (Auto) 19616 H Lymph # (Auto) 600 L [place] # (Auto) 200 Eos # (Auto) 0 Baso # (Auto) 0 Sodium 138 Potassium 4.3 Chloride 105 Carbon Dioxide 25 BUN 9 Creatinine 0.70 Estimated GFR > 60.0 BUN/Creatinine Ratio 12.9 Glucose 135 H Calcium 8.5 Magnesium 1.9 Total Bilirubin 0.6 AST 19 ALT 10 Alkaline Phosphatase 49 Total Protein 6.2 L Albumin 3.5 Globulin 2.7 Albumin/Globulin Ratio 1.3 Assessment & Plan Post-op Postoperative Procedures Operation Date: 01/28/19 20:15 Actual Procedures Side Surgeon p Exploratory laparoscopic lysis of adhesions and placement of drain Left Jus Rojas MD Postoperative day: 1 Postoperative status narrative: doing as expected Postoperative plan narrative: continue iv fluids and antibiotics. Continue dvt prophylaxis. craven out. encourage ambulation. Quality VTE Deep Vein Thrombosis/Pulmonary Embolism Present on Admission: No
[2019-01-29] MEDS: DEXTROSE 5%-0.45NS W/KCL 20MEQ 1,000 ML 100 MEQ IV (20:14)
[2019-01-30] VITALS (12 sets, daily range): BP systolic 109–167; BP diastolic 73–84; PULSE 74–84; RESP 14–83; TEMP 36.4–36.9; O2SAT 94–96
--- NOTE | 2019-01-30 00:57 | PC.NURSE ---
Addendum entered by Krysta Eubanks R.N. 01/30/19 06:12: Catheter d'cd per MD order for 2nd post op day and patient request. Discussed sx/prevention of UTI. States pain is only 2/10 and declines Morphine wanting to wait until she is able to have Toradol. Addendum entered by Krysta Eubanks R.N. 01/30/19 01:46: Complains of 6/10 diffuse abdominal pain; medicated with Toradol and warm blanket provided. Original Note: 2336 Patient is alert and oriented but expresses anxiety re: hospitalization. Breath sounds CTA with RA sat of 92%. HRR. Denies nausea. BT hypoactive and denies flatus. Indwelling catheter is patent and is agreeable to having d'cd in a.m.; urine is clear yellow. Has been turning self in bed but assured patient if she needs assist staff will help her as she states pain is exacerbated with movement. Bandaid dressings to abdomen are CDI. Dressing over KINJAL insertion site is CDI. KINJAL compressed and intact with serosanguinous drainage. States pain is 4/10 but manageable (had Toradol at 2000 and Morphine at 2104 so too soon to repeat either at this time. Agreeable to having SCD's placed for night. Fall risk score is high and bed alarm is activated.
[2019-01-30] MEDS: KETOROLAC 15 MG/ML VIAL IV ×4 (01:44→19:43)
[2019-01-30 05:40] LABS: Add Manual Diff / Slide Review NO; Basophils Absolute Auto 0 /uL (0-100); Basophils Percent Auto 0.3 % (0-2); Eosinophils Absolute Auto 0 /uL (0-450); Eosinophils Percent Auto 0.1 % (2-4); Hematocrit 27.7 % (36-46); Hemoglobin 9.3 g/dL (12.0-16.0); Lymphocytes Absolute Auto 1100 /uL (1100-4500); Lymphocytes Percent Auto 10.5 % (25-40); Mean Corpuscular HGB Conc 33.4 % (30-36); Mean Corpuscular Hemoglobin 27.3 PG (26-34); Mean Corpuscular Volume 81.6 fL (80-100); Monocytes Absolute Auto 700 /uL (0-900); Monocytes Percent Auto 6.1 % (3-14); Neutrophils Absolute Auto 9100 /uL (1500-7000); Platelet Count 173 X10^3/uL (150-400); Red Blood Cell Count 3.39 X10^6/uL (4.0-5.2); Red Cell Distribution Width 14.6 % (11.6-14.8)
[2019-01-30] MEDS: PIPERACILLIN-TAZO 3.375 GM/50 ML FROZ.PIGGY IV ×3 (05:48→17:50)
[2019-01-30] MEDS: DEXTROSE 5%-0.45NS W/KCL 20MEQ 1,000 ML 100 MEQ IV ×2 (06:09→17:49)
[2019-01-30] MEDS: ALBUTEROL HFA 60 PUFF/8 GM INH INH ×2 (08:00→18:25)
[2019-01-30] MEDS: TIOTROPIUM BROMIDE 18 MCG INHALER INH (08:00)
[2019-01-30] MEDS: FLUTICASONE/SALMETEROL 250/50 14 PUFF DISKUS INH ×2 (08:03→18:25)
[2019-01-30] MEDS: ENOXAPARIN 40 MG/0.4 ML SYRINGE SUBCUT (08:11)
[2019-01-30] MEDS: MORPHINE 4 MG/ML INJ IV ×3 (10:48→18:43)
--- NOTE | 2019-01-30 11:44 | PT.IPTN ---
Current Diagnoses Diverticulitis of large intestine without perforation or abscess without bleeding (01/28/19) Surgery Performed Operation Date: 01/28/19 20:15 Actual Procedures p Exploratory laparoscopic lysis of adhesions and placement of drain (Left) - Jus Rojas MD Physical Therapy Treatment Note M2 PT-IP Current Condition Start: 01/29/19 12:35 Freq: NEEDED Status: Active Protocol: Document 01/29/19 10:49 AB (Rec: 01/29/19 12:48 AB [id number]) Physical Therapy Current Condition Current Condition Evaluation Date 01/29/19 Treatment Diagnosis SBO s/p ex-lap; difficulty in walking Onset Date 01/28/19 Precautions Abdominal Surgery Precautions Log Roll Lifting Restrictions Gait Belt above Incisional Area M3 PT-IP Subjective Start: 01/29/19 12:35 Freq: NEEDED Status: Active Protocol: Document 01/30/19 11:43 GGD (Rec: 01/30/19 11:44 GGD [id number]) Subjective Physical Therapy Visit Type Type Patient Refusal Notes Pt refused states that she has increase in pain after bath. Would like to wait until late. M4 PT-IP Mobility Discharge
--- NOTE | 2019-01-30 13:40 | PT.IPTN ---
Current Diagnoses Diverticulitis of large intestine without perforation or abscess without bleeding (01/28/19) Surgery Performed Operation Date: 01/28/19 20:15 Actual Procedures p Exploratory laparoscopic lysis of adhesions and placement of drain (Left) - Jus Rojas MD Physical Therapy Treatment Note M2 PT-IP Current Condition Start: 01/29/19 12:35 Freq: NEEDED Status: Active Protocol: Document 01/29/19 10:49 AB (Rec: 01/29/19 12:48 AB [id number]) Physical Therapy Current Condition Current Condition Evaluation Date 01/29/19 Treatment Diagnosis SBO s/p ex-lap; difficulty in walking Onset Date 01/28/19 Precautions Abdominal Surgery Precautions Log Roll Lifting Restrictions Gait Belt above Incisional Area M3 PT-IP Subjective Start: 01/29/19 12:35 Freq: NEEDED Status: Active Protocol: Document 01/30/19 13:40 GGD (Rec: 01/30/19 15:05 GGD [id number]) Subjective Physical Therapy Visit Type Type Treatment Note Visit Start Time 13:15 Visit Stop Time 13:40 Total Visit Minutes 25 M4 PT-IP Mobility and Gait Start: 01/29/19 12:35 Freq: NEEDED Status: Active Protocol: Document 01/30/19 13:40 GGD (Rec: 01/30/19 15:05 GGD [id number]) PT-Bed Mobility Assessment Rolling Type of Rolling Log Rolling Level of Assist Standby Assistance Supine to Sit Supine to Sit Standby Assistance Sit to Supine Sit to Supine Contact Guard Assistance Scooting Scooting to Edge of Bed Standby Assistance PT-Transfer Assessment Sit to and From Stand Sit to and from Stand Standby Assistance Use of Upper Extremities Equipment Transfer Assistive Device None Gait Belt Orthotic/Prosthetic Devices or Brace: No Transfers Transfer Destination Bed Transfer Ability Level of Assist Standby Assistance 1 Person Assistance Use of Upper Extremities Comments Mobility Comments Min cues for log roll. Gait Assessment Gait Gait Assistance Required: Standby Assistance Distance (Feet) 600 Assistive Devices Assistive Device None Gait Belt Orthotic/Prosthetic Devices or Brace: No Gait Deviations General Gait Pattern Decreased Stride Length Decreased Feet Clearance Factors Limiting Gait Function Factors Limiting Gait Function Decreased Activity Tolerance Decreased Strength Pain Poor Balance Poor Safety Awareness Stair Climbing Assessment Evaluation Level of Assist On Stairs Contact Guard Assistance Devices Stair Climbing Assistive Devices None Technique/Endurance Stair Climbing Direction Ascend and Descend Stair Climbing Technique Step Over Step Number of Steps Climbed 3 Query Text: Stair Climbing Set # Repetitions (reps) 1 M5 PT-IP Objective Assessments Start: 01/29/19 12:35 Freq: NEEDED Status: Active Protocol: Document 01/29/19 10:49 AB (Rec: 01/29/19 12:48 AB [id number]) Orientation Orientation/Cognition Level of Alertness Alert Orientation Name Place Situation Language Function Ability No Deficits Noted Safety Awareness Understands Safety Issues Memory Description No Deficits Noted Gross Range of Motion Lower Extremity ROM Assessment Within Functional Limits Strength Lower Extremity Strength Assessment Within Functional Limits Coordination Assessment Gross Coordination Gross Coordination WNL Sensation Assessment Sensation Gross Sensation WNL Muscle Tone Muscle Tone WNL Yes M6 PT-IP Treatment Start: 01/29/19 12:35 Freq: NEEDED Status: Active Protocol: Document 01/29/19 10:49 AB (Rec: 01/29/19 12:48 AB [id number]) Physical Therapy Treatment Education Education Provided Precautions Safety M7 PT-IP Assessment and Plan Start: 01/29/19 12:35 Freq: NEEDED Status: Active Protocol: Document 01/30/19 13:40 GGD (Rec: 01/30/19 15:05 GGD [id number]) PT Summary Assessment and Plan Summary Assessment Summary Pt improving with mobility. She was safe with gait without assistive device. Pt had mild unsteadiness with stair mobility and need cues for log roll. Frequency of Treatment Frequency Of Treatment Once a Day Treatment Plan Physical Therapy Treatment Plan Bed Mobility Training Transfer Training Gait Training Therapeutic Exercise Balance Retraining Post Op Education Discharge Planning Hot or Cold Pack Neuromuscular Re-ed Coordination Retraining Manual Therapy Other Recommendations and Next Treatment Review Log roll. Focus Recommendations To Nursing Amount of Assist Needed 1 Person Assist Discharge Recommendations PT Discharge Recommendations Home with Assistance Equipment Needed for Home Before no needs Discharge
--- NOTE | 2019-01-30 19:15 | PM.PNPO.1 ---
Subjective Date Patient Seen: 01/30/19 Time Patient Seen: 19:16 Interval history: Patient had an uncomfortable date. She has been trying to walk and she has had the Castañeda removed and having to go to the bathroom when trying to do we asked her to do but has increased her pain. She also has developed some cramping. Has not been asking for pain medicine is often as she probably should because she is afraid of being addicted. She has been worried about whether she would need an ostomy and has been and listening to people and reading things and is just very worried about all the things that could happen. Exam Vital Signs (past 8 hours): - 01/30/19 11:30 01/30/19 14:00 01/30/19 15:00 Temperature 98.4 F Pulse Rate 84 Respiratory Rate 18 Blood Pressure 154/81 H Pulse Oximetry 95 96 96 01/30/19 16:00 01/30/19 18:27 Temperature 98.3 F Pulse Rate 75 74 Respiratory Rate 18 14 Blood Pressure 167/77 H Pulse Oximetry 95 94 Oxygen Delivery Method Room Air Oxygen Flow Rate 0 Narrative Exam Narrative: The patient's lungs are clear. Her abdomen is still distended. It is soft. There is tenderness however of some significance in left lower quadrant. She has no guarding however even with vigorous shaking. She says her pain is an 8/10 when I shake her. She does not have any visible facial reaction unfortunately despite having severe pain. Therefore it is difficult to gauge how she is improving or not. Objective Labs Result Diagrams: 01/30/19 05:10 01/29/19 05:10 Labs: Laboratory Results - last 24 hr 01/30/19 05:10 WBC 11.0 RBC 3.39 L Hgb 9.3 L Hct 27.7 L MCV 81.6 MCH 27.3 MCHC 33.4 RDW 14.6 Plt Count 173 Neut % (Auto) 83.0 H Lymph % (Auto) 10.5 L [place] % (Auto) 6.1 Eos % (Auto) 0.1 L Baso % (Auto) 0.3 Neut # (Auto) 9100 H Lymph # (Auto) 1100 [place] # (Auto) 700 Eos # (Auto) 0 Baso # (Auto) 0 Assessment & Plan Post-op Postoperative Procedures Operation Date: 06/11/19 20:15 Actual Procedures Side Surgeon p Exploratory laparoscopic lysis of adhesions and placement of drain Left Jus Rojas MD Postoperative day: 2 Postoperative status narrative: I am little concerned about her anemia. This may just be her body retaining fluid and diluting her hematocrit combined with and anemia and dehydration. However she has began to lose apparently this afternoon from 1 of her laparoscopic incisions at her umbilicus. Stopper Lovenox. She is also on Toradol. Really can't give her oral medication yet. Her white count is down and the patient has less of a shift. Postoperative plan narrative: Stopped her Lovenox. Continue her IV antibiotics. X-rays in the morning to see what her gas pattern is doing. Reduce the amount of morphine she is getting per dose as it does seem to confuse her she said. Ativan for anxiety at a low dose. Labs in the a.m.. Quality VTE Deep Vein Thrombosis/Pulmonary Embolism Present on Admission: No
[2019-01-30] MEDS: DEXTROSE 5%-0.45% NS 1,000 ML 100 ML IV (19:48)
[2019-01-30] MEDS: ALBUTEROL 2.5 MG/3 ML NEB (ADULT) INH (21:27)
[2019-01-30] MEDS: MORPHINE 4 MG/ML INJ 3 MG IV (22:09)
[2019-01-31] VITALS (13 sets, daily range): BP systolic 140–163; BP diastolic 65–88; PULSE 83–97; RESP 16–18; TEMP 36.9–37.1; O2SAT 94–96
[2019-01-31] MEDS: PIPERACILLIN-TAZO 3.375 GM/50 ML FROZ.PIGGY IV ×4 (00:30→17:43)
[2019-01-31] MEDS: MORPHINE 4 MG/ML INJ 3 MG IV ×2 (03:49→08:22)
--- NOTE | 2019-01-31 04:13 | PC.NURSE ---
Freight Rate Clerk Note: 0015: Awake, up to bathroom with sba. Vital signs stable. IV in place in wrist with D5 1/2NS infusing at 100cc/hr. Dressing to umbilicus 3/4 saturated with sanguinous drainage, with tegaderm in place over dressing. 0350: Awake, dressing to umbilicus saturated and leaking. Dressing changed. Pt up to bathroom with sba. Medicated for pain with Morphine 3mg IV.
[2019-01-31 05:45] LABS: Add Manual Diff / Slide Review NO; Basophils Absolute Auto 100 /uL (0-100); Basophils Percent Auto 0.7 % (0-2); Eosinophils Absolute Auto 200 /uL (0-450); Eosinophils Percent Auto 2.2 % (2-4); Hematocrit 31.2 % (36-46); Hemoglobin 10.2 g/dL (12.0-16.0); Lymphocytes Absolute Auto 1500 /uL (1100-4500); Lymphocytes Percent Auto 18.7 % (25-40); Mean Corpuscular HGB Conc 32.8 % (30-36); Mean Corpuscular Hemoglobin 26.8 PG (26-34); Mean Corpuscular Volume 81.6 fL (80-100); Monocytes Absolute Auto 700 /uL (0-900); Monocytes Percent Auto 9.3 % (3-14); Neutrophils Absolute Auto 5500 /uL (1500-7000); Neutrophils Percent Auto 69.1 % (50-75); Platelet Count 206 X10^3/uL (150-400); Red Blood Cell Count 3.82 X10^6/uL (4.0-5.2); Red Cell Distribution Width 14.4 % (11.6-14.8)
[2019-01-31] MEDS: DEXTROSE 5%-0.45% NS 1,000 ML 100 ML IV (05:54)
[2019-01-31 06:07] LABS: Alanine Aminotransferase 16 IU/L (9-52); Albumin 3.5 g/dL (3.5-5.0); Albumin Globulin Ratio 1.3 (1.0-2.8); Alkaline Phosphatase 44 U/L (38-126); Aspartate Aminotransferase 19 IU/L (14-36); BUN Creatinine Ratio 6.3 (6-22); Bilirubin Total 0.9 mg/dL (0.2-1.3); Blood Urea Nitrogen 5 mg/dL (7-17); Calcium 8.9 mg/dL (8.4-10.2); Carbon Dioxide 29 mmol/L (22-32); Chloride 107 mmol/L (98-107); Estimated Glomerular Filt Rate > 60.0 mL/min (>60); Globulin 2.8 g/dL (1.7-4.1); Glucose 138 mg/dL (80-110); HEMOLYSIS < 15 (0-50); Potassium 3.7 mmol/L (3.4-5.1); Sodium 141 mmol/L (137-145); Total Protein 6.3 g/dL (6.3-8.2)
--- NOTE | 2019-01-31 07:14 | DI.RAD.S_ITS ---
PROCEDURE: XR ACUTE ABDOMEN SERIES INDICATIONS: Follow up for small bowel obstruction. had laparoscopy TECHNIQUE: One view chest and two views of the abdomen were acquired. COMPARISON: [facility], CT, CT ABDOMEN PELVIS W CON, 01/28/2019, 17:31. FINDINGS: Surgical changes and devices: A catheter in the lower pelvis is noted. Chest: Hyperinflation suggesting COPD. Lungs are clear. Heart size is dominant. No pleural effusions. No pneumoperitoneum. Abdomen: There is abundant bowel gas in small intestine and paucity of proximal colonic gas. There is gas in splenic flexure, descending colon and rectum. No suspicious calcifications. The liver is enlarged. Bones: No suspicious bony lesions. Scoliosis. Mild/moderate compression fracture of L3. Severe degenerative changes in lumbar spine. IMPRESSION: Abundant bowel gas in small intestine and paucity of colonic gas. Differential diagnosis include persistent small bowel obstruction versus ileus. Dictated by: La Mahajan M.D. on 01/31/2019 at 8:36 Approved by: La Mahajan M.D. on 01/31/2019 at 8:41
[2019-01-31] MEDS: FLUTICASONE/SALMETEROL 250/50 14 PUFF DISKUS INH ×2 (07:32→17:59)
[2019-01-31] MEDS: TIOTROPIUM BROMIDE 18 MCG INHALER INH (07:33)
--- NOTE | 2019-01-31 10:45 | PC.NURSE ---
Pt complains of pain 6/10 to lower abdomen. Given morphine 3mg and somewhat helpful for discomfort. Pt is having pain when she gets up and ambulates. Explained and encouraged to walk when she can. Dressings to lower incisionsx3 dry. Small amount of shadow drainage to mid dressing and pts alexi drain in place. She is resting now and voices no discomfort after morhine given. Slight nausea when getting up but back to bed now and no further complaints.
[2019-01-31] MEDS: KETOROLAC 15 MG/ML VIAL IV ×2 (11:47→19:51)
--- NOTE | 2019-01-31 13:20 | PM.PNPO.1 ---
Subjective Date Patient Seen: 01/31/19 Time Patient Seen: 13:20 Interval history: The patient has slept very well today. This is the 1st good night sleep she says she has had. She has been up a lot to go to the bathroom but even so is much better rested. She still has some left lower quadrant pain. She has begun passing gas. Exam Vital Signs (past 8 hours): - 01/31/19 07:40 01/31/19 08:00 01/31/19 12:00 Temperature 98.7 F 98.6 F Pulse Rate 85 88 97 H Respiratory Rate 16 18 16 Blood Pressure 152/86 H 163/88 H Pulse Oximetry 95 96 Oxygen Delivery Method Room Air Oxygen Flow Rate 0 Narrative Exam Narrative: Lungs are clear to auscultation. Good effort. Heart regular rate and rhythm without murmur gallop. Abdomen is little distended soft. I removed all of her dressings. Wounds all look great. The bleeding that she had has ceased. There is some not obvious tenderness in left lower quadrant. Objective Labs Result Diagrams: 02/01/19 05:15 01/31/19 05:26 Labs: Laboratory Results - last 24 hr 01/31/19 01/31/19 05:22 05:26 WBC 8.0 RBC 3.82 L Hgb 10.2 L Hct 31.2 L MCV 81.6 MCH 26.8 MCHC 32.8 RDW 14.4 Plt Count 206 Neut % (Auto) 69.1 Lymph % (Auto) 18.7 L [place] % (Auto) 9.3 Eos % (Auto) 2.2 Baso % (Auto) 0.7 Neut # (Auto) 5500 Lymph # (Auto) 1500 [place] # (Auto) 700 Eos # (Auto) 200 Baso # (Auto) 100 Sodium 141 Potassium 3.7 Chloride 107 Carbon Dioxide 29 BUN 5 L Creatinine 0.80 Estimated GFR > 60.0 BUN/Creatinine Ratio 6.3 Glucose 138 H Calcium 8.9 Total Bilirubin 0.9 AST 19 ALT 16 Alkaline Phosphatase 44 Total Protein 6.3 Albumin 3.5 Globulin 2.8 Albumin/Globulin Ratio 1.3 Assessment & Plan Post-op Postoperative Procedures Operation Date: 01/28/19 20:15 Actual Procedures Side Surgeon p Exploratory laparoscopic lysis of adhesions and placement of drain Left Jus Rojas MD Postoperative day: 3 Postoperative status narrative: Doing well. Seems to be responding the IV antibiotics. White blood cell count is now normal. Electrolytes are normal also. I think she is less tender than she was yesterday. She is passing flatus. Her x-rays today look much better than the preoperative CT scan. She clearly has glass in the abdomen and left: P. the small bowel is less distended than it appeared to be on CT scan. Postoperative plan narrative: Seems to be improving. She would like to shower. Can do so. All the dressings were removed. They should reapply Band-Aids to the 2 smaller incisions and the drain site should have some gauze around it. Continue her broad-spectrum antibiotics. Hold the Lovenox for DVT prophylaxis due to bleeding. The crit is noted to have gone up now at 31. Her urine output is 2200 higher than her intake. She is mobilizing her 3rd space fluid. Everything is moving in the right direction at this time. Will continue to monitor in the hopes that that continues. We will start sips of clear liquid Quality VTE Deep Vein Thrombosis/Pulmonary Embolism Present on Admission: No
--- NOTE | 2019-01-31 13:40 | PT.IPTN ---
Current Diagnoses Diverticulitis of large intestine without perforation or abscess without bleeding (01/28/19) Surgery Performed Operation Date: 01/28/19 20:15 Actual Procedures p Exploratory laparoscopic lysis of adhesions and placement of drain (Left) - Jus Rojas MD Physical Therapy Treatment Note M2 PT-IP Current Condition Start: 01/29/19 12:35 Freq: NEEDED Status: Active Protocol: Document 01/29/19 10:49 AB (Rec: 01/29/19 12:48 AB [id number]) Physical Therapy Current Condition Current Condition Evaluation Date 01/29/19 Treatment Diagnosis SBO s/p ex-lap; difficulty in walking Onset Date 01/28/19 Precautions Abdominal Surgery Precautions Log Roll Lifting Restrictions Gait Belt above Incisional Area M3 PT-IP Subjective Start: 01/29/19 12:35 Freq: NEEDED Status: Active Protocol: Document 01/31/19 13:37 GGD (Rec: 01/31/19 13:40 GGD [id number]) Subjective Physical Therapy Visit Type Type Treatment Note Visit Start Time 13:05 Visit Stop Time 13:30 Total Visit Minutes 25 Physical Therapy Visit Comments Patient Comments Pt states she having trouble with log roll. M4 PT-IP Mobility and Gait Start: 01/29/19 12:35 Freq: NEEDED Status: Active Protocol: Document 01/31/19 13:37 GGD (Rec: 01/31/19 13:40 GGD [id number]) PT-Bed Mobility Assessment Rolling Type of Rolling Log Rolling Level of Assist Standby Assistance Supine to Sit Supine to Sit Standby Assistance Sit to Supine Sit to Supine Contact Guard Assistance Scooting Scooting to Edge of Bed Standby Assistance PT-Transfer Assessment Sit to and From Stand Sit to and from Stand Standby Assistance Use of Upper Extremities Equipment Transfer Assistive Device None Gait Belt Orthotic/Prosthetic Devices or Brace: No Transfers Transfer Destination Chair Transfer Ability Level of Assist Standby Assistance 1 Person Assistance Use of Upper Extremities Comments Mobility Comments Min cues for log roll. supine to sit to supine to sit. Gait Assessment Gait Gait Assistance Required: Standby Assistance Distance (Feet) 600 Assistive Devices Assistive Device None Gait Belt Orthotic/Prosthetic Devices or Brace: No Gait Deviations General Gait Pattern Decreased Stride Length Decreased Feet Clearance Factors Limiting Gait Function Factors Limiting Gait Function Decreased Activity Tolerance Decreased Strength Pain Poor Balance Poor Safety Awareness M5 PT-IP Objective Assessments Start: 01/29/19 12:35 Freq: NEEDED Status: Active Protocol: Document 01/29/19 10:49 AB (Rec: 01/29/19 12:48 AB [id number]) Orientation Orientation/Cognition Level of Alertness Alert Orientation Name Place Situation Language Function Ability No Deficits Noted Safety Awareness Understands Safety Issues Memory Description No Deficits Noted Gross Range of Motion Lower Extremity ROM Assessment Within Functional Limits Strength Lower Extremity Strength Assessment Within Functional Limits Coordination Assessment Gross Coordination Gross Coordination WNL Sensation Assessment Sensation Gross Sensation WNL Muscle Tone Muscle Tone WNL Yes M6 PT-IP Treatment Start: 01/29/19 12:35 Freq: NEEDED Status: Active Protocol: Document 01/29/19 10:49 AB (Rec: 01/29/19 12:48 AB [id number]) Physical Therapy Treatment Education Education Provided Precautions Safety M7 PT-IP Assessment and Plan Start: 01/29/19 12:35 Freq: NEEDED Status: Active Protocol: Document 01/31/19 13:37 GGD (Rec: 01/31/19 13:40 GGD [id number]) PT Summary Assessment and Plan Summary Assessment Summary Pt needed min cues for full log roll. She was safe with gait with a slow pace. Pt continues to need cue for bed mobility. Frequency of Treatment Frequency Of Treatment Once a Day Treatment Plan Other Recommendations and Next Treatment Review Log roll. Focus Recommendations To Nursing Amount of Assist Needed 1 Person Assist Discharge Recommendations PT Discharge Recommendations Home with Assistance
[2019-01-31] MEDS: HYDROXYCHLOROQUINE 200 MG TABLET PO (14:59)
--- NOTE | 2019-01-31 16:51 | PC.NURSE ---
Patient is A&O x4 pleasant and cooperative w/ staff and able to make needs known when nec. Patient is resting in bed. Denies any n/v at this time, BT are hypo. Drg. to abd. are CDI and some deep purple bruising is starting to form around surgical incisions. KINJAL drain intact to abd. and compressed. Pt reports pain is 5/10, tolerable. States most of her discomfort is r/t a WILLIAM she has had all day. Discussed that this could pot. be r/t the morphine she has been receiving, suggested napping, drawing shades in room, ice pack and lower HOB. Discussed pain med options and when appropriate times to receive more. Patient compliant w/ plan of care to wait until next med dose and relax. Call light w/in reach, bed in low pos. alarm active. Patient states understanding to use call baker for needs.
[2019-01-31] MEDS: DEXTROSE 5%-0.45% NS 1,000 ML 84 ML IV (17:44)
[2019-02-01] VITALS (10 sets, daily range): BP systolic 149–161; BP diastolic 81–88; PULSE 60–102; RESP 16–18; TEMP 36.6–37.6; O2SAT 94–98
[2019-02-01] MEDS: PIPERACILLIN-TAZO 3.375 GM/50 ML FROZ.PIGGY IV ×4 (00:03→17:53)
[2019-02-01 05:31] LABS: Add Manual Diff / Slide Review NO; Basophils Absolute Auto 100 /uL (0-100); Basophils Percent Auto 1.1 % (0-2); Eosinophils Absolute Auto 400 /uL (0-450); Eosinophils Percent Auto 4.3 % (2-4); Hematocrit 34.4 % (36-46); Hemoglobin 11.3 g/dL (12.0-16.0); Lymphocytes Absolute Auto 1600 /uL (1100-4500); Mean Corpuscular HGB Conc 32.9 % (30-36); Mean Corpuscular Hemoglobin 26.7 PG (26-34); Mean Corpuscular Volume 81.1 fL (80-100); Monocytes Absolute Auto 1000 /uL (0-900); Monocytes Percent Auto 12.3 % (3-14); Neutrophils Absolute Auto 5200 /uL (1500-7000); Neutrophils Percent Auto 63.3 % (50-75); Platelet Count 231 X10^3/uL (150-400); Red Blood Cell Count 4.23 X10^6/uL (4.0-5.2); Red Cell Distribution Width 14.4 % (11.6-14.8); White Blood Cell Count 8.2 X10^3/uL (4.5-11.0)
[2019-02-01] MEDS: BISACODYL 10 MG SUPP PR (05:55)
[2019-02-01] MEDS: DEXTROSE 5%-0.45% NS 1,000 ML 84 ML IV (05:55)
[2019-02-01] MEDS: KETOROLAC 15 MG/ML VIAL IV ×3 (06:07→17:52)
[2019-02-01] MEDS: TIOTROPIUM BROMIDE 18 MCG INHALER INH (07:37)
[2019-02-01] MEDS: FLUTICASONE/SALMETEROL 250/50 14 PUFF DISKUS INH ×2 (07:37→18:03)
[2019-02-01] MEDS: HYDROXYCHLOROQUINE 200 MG TABLET PO (08:49)
--- NOTE | 2019-02-01 11:19 | PC.NURSE ---
Pt showered, also ambulated in the halls and hooked back up to iv. Dressing to KINJAL drain reinforced. Pt states that she does have some pain to each side of her abdomen after she moves. There was concern that the left side of her lower abdomen was harder than the right side. When palpated, this RN felt that each side was the same. Bt+x4 and abdomen soft. Kinjal drain putting out minimal drainage. Pt is still on IVF at 84cc/hr. IV patent and working well. Just given iv toradol with good pain control. Resting in bed after taking a walk in the halls.
--- NOTE | 2019-02-01 11:39 | P.PN_ITS ---
Subjective Date Patient Seen: 02/01/19 Time Patient Seen: 11:38 Interval history: 73yo F s/p dx lap with DENITA and drain placement. Doing well today, pain improved, has had small volume flatus and 'smears' of stool. Minimal distension and says she had some nausea and early satiety with clears earlier but is hungry now. Walking well and comfortably. Says she does not like the morphine and has been off gabapentin at home for some time, she thinks the toradol works well and would otherwise like tramadol as this also has worked well for her at home. Has some questions about her surgery and expected course which we went through to her satisfaction. Exam Vital Signs (past 8 hours): - 02/01/19 03:45 02/01/19 07:31 02/01/19 07:42 Temperature 99.6 F 98.1 F Pulse Rate 79 83 102 H Respiratory Rate 16 16 16 Blood Pressure 157/88 H 161/83 H Pulse Oximetry 96 94 97 Fraction of Inspired Oxygen 21 Oxygen Delivery Method Room Air Oxygen Flow Rate 0 Narrative Exam Narrative: AAO, NAD, male of healthy weight EOMI, MMM, no scleral icterus unlabored RA soft, no ttp, inc c/d/i, minimal distension; drain with scant s/s output MAEW visible skin dry and intact Objective Labs Result Diagrams: 02/01/19 05:15 01/31/19 05:26 Labs: Laboratory Results - last 24 hr 02/01/19 05:15 WBC 8.2 RBC 4.23 Hgb 11.3 L Hct 34.4 L MCV 81.1 MCH 26.7 MCHC 32.9 RDW 14.4 Plt Count 231 Neut % (Auto) 63.3 Lymph % (Auto) 19.0 L [place] % (Auto) 12.3 Eos % (Auto) 4.3 H Baso % (Auto) 1.1 Neut # (Auto) 5200 Lymph # (Auto) 1600 [place] # (Auto) 1000 H Eos # (Auto) 400 Baso # (Auto) 100 Assessment & Plan Assessment & Plan narrative: - continues to improve post op - pain controlled, scheduled toradol and prn tramadol for now - la small volume clears and would like more, does have some evidence of returning bowel function; advance to [facility] and gave precautions on slow and low intake - HLIV - cont' to ambulate - likely remove drain tomorrow if output remains low with diet increase - cont' zosyn, switch to PO when la more solid diet - low dose metoprolol added to to ongoing HTN Quality VTE Deep Vein Thrombosis/Pulmonary Embolism Present on Admission: No
--- NOTE | 2019-02-01 12:01 | PT.IPTN ---
Current Diagnoses Diverticulitis of large intestine without perforation or abscess without bleeding (01/28/19) Surgery Performed Operation Date: 01/28/19 20:15 Actual Procedures p Exploratory laparoscopic lysis of adhesions and placement of drain (Left) - Jus Rojas MD Physical Therapy Treatment Note M2 PT-IP Current Condition Start: 01/29/19 12:35 Freq: NEEDED Status: Active Protocol: Document 01/29/19 10:49 AB (Rec: 01/29/19 12:48 AB [id number]) Physical Therapy Current Condition Current Condition Evaluation Date 01/29/19 Treatment Diagnosis SBO s/p ex-lap; difficulty in walking Onset Date 01/28/19 Precautions Abdominal Surgery Precautions Log Roll Lifting Restrictions Gait Belt above Incisional Area M3 PT-IP Subjective Start: 01/29/19 12:35 Freq: NEEDED Status: Active Protocol: Document 02/01/19 11:58 GGD (Rec: 02/01/19 12:00 GGD [id number]) Subjective Physical Therapy Visit Type Type Administrative Note Notes Pt up ambulating halls independent. She states that she has no additional needs from PT. Therefore, will D/C from PT at this time. M4 PT-IP Mobility and Gait Start: 01/29/19 12:35 Protocol: Document 02/01/19 12:00 GGD (Rec: 02/01/19 12:00 GGD [id number]) PT Summary Assessment and Plan Frequency of Treatment Frequency Of Treatment Discharge Recommendations To Nursing Amount of Assist Needed Independent Discharge Recommendations PT Discharge Recommendations Home with Assistance
[2019-02-01] MEDS: METOPROLOL IR 25 MG TABLET PO ×2 (16:26→21:16)
[2019-02-01 19:21] LABS: Appearance Urine UA CLEAR; Bilirubin Urine UA NEGATIVE (NEGATIVE); Color Urine UA YELLOW; Glucose Urine UA NEGATIVE (Negative); Ketones Urine UA NEGATIVE (NEGATIVE); Leukocyte Esterase Urine UA NEGATIVE (NEGATIVE); Nitrite Urine UA NEGATIVE (Negative); Occult Blood Urine UA TRACE-LYSED (Negative); Protein Urine UA NEGATIVE (Negative); Urobilinogen Urine UA 0.2 E.U./dL (0.2); pH Urine UA 7.5 (4.5-8.0)
[2019-02-02] VITALS (15 sets, daily range): BP systolic 129–149; BP diastolic 53–82; PULSE 66–87; RESP 15–18; TEMP 36.3–37.1; O2SAT 94–99
[2019-02-02] MEDS: PIPERACILLIN-TAZO 3.375 GM/50 ML FROZ.PIGGY IV ×2 (00:05→06:00)
[2019-02-02] MEDS: LORazepam 2 MG/ML INJ 0.5 MG IV (00:16)
[2019-02-02] MEDS: KETOROLAC 15 MG/ML VIAL IV ×2 (00:20→23:03)
[2019-02-02] MEDS: FLUTICASONE/SALMETEROL 250/50 14 PUFF DISKUS INH ×2 (07:18→17:45)
[2019-02-02] MEDS: TIOTROPIUM BROMIDE 18 MCG INHALER INH (07:18)
[2019-02-02] MEDS: HYDROXYCHLOROQUINE 200 MG TABLET PO (08:52)
[2019-02-02] MEDS: METOPROLOL IR 25 MG TABLET PO ×2 (08:52→20:55)
--- NOTE | 2019-02-02 13:34 | PM.PN.1 ---
Subjective Date Patient Seen: 02/02/19 Time Patient Seen: 09:09 Interval history: 73yo F s/p dx lap with DENITA and drain placement. Doing well today, pain improved, has had loose BMs through this morning. La FLD at low volume but too much makes her 'feel crummy.' Denies nausea, no abd bloating. Drain with scant output. Walking often and comfortably. Pain well controlled. Exam Vital Signs (past 8 hours): - 02/02/19 07:18 02/02/19 08:00 02/02/19 08:50 Temperature 97.4 F L Pulse Rate 87 68 Respiratory Rate 16 16 Blood Pressure 134/82 Pulse Oximetry 99 96 97 Fraction of Inspired Oxygen 21 Oxygen Delivery Method Room Air Oxygen Flow Rate 0 Narrative Exam Narrative: AAO, NAD, female of healthy weight EOMI, MMM, no scleral icterus unlabored RA soft, no ttp, inc c/d/i with mild bruising, minimal distension; drain with scant s/s output MAEW visible skin dry and intact Objective Labs Result Diagrams: 02/01/19 05:15 01/31/19 05:26 Labs: Laboratory Results - last 24 hr 02/01/19 19:15 Urine Color Yellow Urine Appearance Clear Urine pH 7.5 Ur Specific [place] 1.010 Urine Protein Negative Urine Glucose (UA) Negative Urine Ketones Negative Urine Occult Blood Trace-lysed Urine Nitrate Negative Urine Bilirubin Negative Urine Urobilinogen 0.2 Ur Leukocyte Esterase Negative Assessment & Plan Assessment & Plan narrative: - continues to improve post op - pain controlled, keep with scheduled toradol (set to end tonight) and prn tramadol for now - la low volume FLD, stick with this for today - cont' to ambulate - removed drain - changed zosyn to PO cipro/ flagyl - low dose metoprolol added to to ongoing HTN; not on any anti-hypertensives at home and says she tends to run on the low side Quality VTE Deep Vein Thrombosis/Pulmonary Embolism Present on Admission: No
[2019-02-02] MEDS: metroNIDAZOLE 500 MG TABLET PO ×2 (13:38→20:55)
[2019-02-02] MEDS: CIPROFLOXACIN 500 MG TABLET PO (20:54)
[2019-02-02] MEDS: SODIUM CHLORIDE 0.9% FLUSH 10 ML IV (22:13)
--- NOTE | 2019-02-02 23:37 | PC.NURSE ---
A/O x4, 97%RA, LS clear, denies SOB. ABD with slight distention, some bruising around umbilicus and old KINJAL drain site and lap sites, Old KINJAL drain site with gauze/tegaderm CDI. 2245- C/O 4/10 RM/L Q pain, Ketorolac 15mg IV effective. Indep in room and hallways x2. LFA SL. tolerating fulls diet. Call light in reach.
[2019-02-03] VITALS (12 sets, daily range): BP systolic 130–154; BP diastolic 53–86; PULSE 66–90; RESP 16–19; TEMP 36.6–37.1; O2SAT 93–99
[2019-02-03] MEDS: FLUTICASONE/SALMETEROL 250/50 14 PUFF DISKUS INH ×2 (09:05→17:52)
[2019-02-03] MEDS: TIOTROPIUM BROMIDE 18 MCG INHALER INH (09:05)
[2019-02-03] MEDS: CIPROFLOXACIN 500 MG TABLET PO ×2 (09:11→20:10)
[2019-02-03] MEDS: metroNIDAZOLE 500 MG TABLET PO ×3 (09:11→20:10)
[2019-02-03] MEDS: SODIUM CHLORIDE 0.9% FLUSH 10 ML IV ×2 (09:11→20:10)
[2019-02-03] MEDS: METOPROLOL IR 25 MG TABLET PO ×2 (09:11→20:10)
[2019-02-03] MEDS: HYDROXYCHLOROQUINE 200 MG TABLET PO (09:11)
[2019-02-03] MEDS: TRAMADOL 50 MG TABLET PO ×2 (11:36→22:12)
--- NOTE | 2019-02-03 11:51 | PM.PN.1 ---
Subjective Date Patient Seen: 02/03/19 Time Patient Seen: 10:51 Interval history: Doing well, going slow with diet but no nausea or distension, having loose BMs. Walking well. Exam Vital Signs (past 8 hours): - 02/03/19 04:00 02/03/19 04:47 02/03/19 08:00 Temperature 98.4 F 98 F Pulse Rate 66 82 Respiratory Rate 18 18 Blood Pressure 154/76 H 130/54 L Pulse Oximetry 96 96 97 02/03/19 09:05 02/03/19 09:09 Temperature Pulse Rate 84 Respiratory Rate 16 Blood Pressure Pulse Oximetry 99 99 Fraction of Inspired Oxygen 21 Oxygen Delivery Method Room Air Oxygen Flow Rate 0 Narrative Exam Narrative: AAO, NAD, female of healthy weight EOMI, MMM, no scleral icterus unlabored RA soft, no ttp, inc c/d/i with mild bruising, minimal distension; drain site clean and dressed MAEW visible skin dry and intact Objective Labs Result Diagrams: 02/01/19 05:15 01/31/19 05:26 Assessment & Plan Assessment & Plan narrative: - continues to improve post op - pain controlled, keep with prn tramadol and will add ibuprofen now that toradol is finished - la FLD but taking it slow; advance to low residue solids --> if does well today may be fine to go tomorrow - cont' to ambulate - removed drain yesterday - changed zosyn to PO cipro/ flagyl yesterday - low dose metoprolol added with some improvement to persistent HTN; not on any anti-hypertensives at home and says she tends to run on the low side Quality VTE Deep Vein Thrombosis/Pulmonary Embolism Present on Admission: No
[2019-02-03] MEDS: ONDANSETRON 4 MG/2 ML INJ IV (23:23)
[2019-02-04] VITALS (7 sets, daily range): BP systolic 129–136; BP diastolic 76–81; PULSE 80–82; RESP 16–20; TEMP 36.6–36.8; O2SAT 96
[2019-02-04] MEDS: TIOTROPIUM BROMIDE 18 MCG INHALER INH (08:36)
[2019-02-04] MEDS: FLUTICASONE/SALMETEROL 250/50 14 PUFF DISKUS INH (08:36)
[2019-02-04] MEDS: HYDROXYCHLOROQUINE 200 MG TABLET PO (08:43)
[2019-02-04] MEDS: SODIUM CHLORIDE 0.9% FLUSH 10 ML IV (08:43)
[2019-02-04] MEDS: metroNIDAZOLE 500 MG TABLET PO (08:43)
[2019-02-04] MEDS: METOPROLOL IR 25 MG TABLET PO (08:43)
[2019-02-04] MEDS: CIPROFLOXACIN 500 MG TABLET PO (08:43)
--- NOTE | 2019-02-04 11:36 | DIET.PN ---
Assess: Pt seen based on dietary screening. RD consulted per dietary staff r/t questions from patient regarding dietary restrictions. DX: Abdominal Pain PMHX: C-Diff Diet Order: Soft, Low fiber/residue PO's: //75 MNA: 13 Ht: 157.45cm Wt: 55.6kg BMI: 22.4 Intervention: Education pt on low fiber, low fat diet. Discussed food recommended and provided list of foods to avoid including particular high fat meats, some dairy, raw f/v, caffeine, and alcohol. Pt with good understanding. Plan: Cont low fiber diet for 2 weeks, slowing adding high fiber foods back into the diet as tolerated.
--- NOTE | 2019-02-04 12:13 | P.DS_ITS ---
History of Present Illness Chief complaint: abd pain x2 days Narrative: The patient is a woman who developed abdominal pain yesterday. She had been feeling fairly normal up until then. Had been passing large amount of gas. Yesterday however she stopped passing gas and developed diffuse abdominal pain. She has not had pain quite like this before. She had 3 loose bowel movements yesterday into today. Her only prior abdominal operation was a C- section. A few years ago she was treated for C diff and has also been told she had Crohn's disease based on a colonoscopy. However she saw a GI specialist and they told her she did not have Crohn's disease. Her pain increases with movement. Is about 8/10. She sustained a compression fracture of her spine in August after a fall. Discharge Providers Date of admission: 01/28/19 18:55 Discharge Date: 02/04/19 Primary care physician: THANH Ge Consults: 01/28/19 23:31 Consult to Discharge Planning Routine Comment: Consult to Physical Therapy Evaluate & Treat Comment: Physician Instructions: Evaluate and Treat Consult to Respiratory Therapy Evaluate & Treat Comment: Physician Instructions: Evaluate and treat Consult to Patient Ombudsperson Routine Comment: Discharge planning Discharge provider: Jus Rojas MD Summary Discharge Diagnosis: Small obstruction bowel obstruction secondary to adhesions to diverticulitis of the sigmoid colon. Acute diverticulitis of the sigmoid colon. Hypokalemia acute resolved Chronic pain COPD in a nonsmoker Arthritis chronic Chronic anemia. Cause uncertain. It is not related to surgical procedure. Hospital Course: Patient underwent laparoscopy, separation of the small bowel from the colon, placement of a drain. Postoperatively her recovery was pretty much as expected. She has centrally was treated for diverticulitis once the o peration was ended and the bowel obstruction surgically treated. She followed a fairly typical course with bowel function beginning return a day 3 and gradual improvement until the time of her discharge. She was treated with IV Zosyn and then switched to p.o. Cipro and p.o. Flagyl. She is discharged on those 2 drugs along with her pre-admission medications. She is to follow up in the office. Status at Discharge Cognitive/behavioral status at discharge: oriented Functional status at discharge: independent ambulation Overall status at discharge: patient is progressing back to baseline Exam Vital Signs (past 8 hours): - 02/04/19 05:41 02/04/19 06:00 02/04/19 08:38 Temperature 98.2 F 98 F Pulse Rate 82 80 Respiratory Rate 17 16 Blood Pressure 129/81 136/76 Pulse Oximetry 96 96 96 02/04/19 08:58 02/04/19 09:00 Temperature Pulse Rate 80 Respiratory Rate 20 Blood Pressure Pulse Oximetry 96 96 Fraction of Inspired Oxygen 21 Oxygen Delivery Method Room Air Oxygen Flow Rate 0 Narrative Exam Narrative: Operative no apparent distress. Abdomen is soft. No obvious tenderness. No guarding. Wounds look fine. Bruising inferior to the umbilicus noted. Objective Labs Result Diagrams: 02/01/19 05:15 01/31/19 05:26 Discharge Plan Discharge Plan Patient Disposition: Home Discharge comment: Your under treatment for diverticulitis. Continue to take her antibiotics till they are gone. This will take about 3 days. You may resume her pre-admission medication. You should eat a diet that is mostly meat and a starch. Try to avoid vegetables and fruit for right now. He may gradually begin adding them back in about 3 weeks. Discharge Med Rec/Prescriptions Prescriptions: New metronidazole 500 mg Tablet 500 mg PO TID Qty: 0 RF: 0 ciprofloxacin HCl [Cipro] 500 mg Tablet 500 mg PO BID Qty: 0 RF: 0 metronidazole [Flagyl] 500 mg tablet 500 mg PO TID Qty: 10 RF: 0 ciprofloxacin HCl 500 mg tablet 500 mg PO BID Qty: 7 RF: 0 Continued albuterol sulfate [Ventolin HFA] 90 MCG/PUFF HFA aerosol inhaler 2 puff INH Q4H PRNQty: 2 RF: 12 Spiriva with HandiHaler 18 MCG capsule, w/inhalation device 1 puff INH DAILY Qty: 0 RF: 0 omeprazole 20 mg capsule,delayed release(DR/EC) 20 mg PO DAILY Qty: 90 RF: 0 fluticasone propion-salmeterol 250-50 mcg/dose blister with device 1 puff inhalation BID RF: 0 acetaminophen 325 mg Tablet 325 mg PO BID RF: 0 folic acid 1 mg tablet 1 mg PO DAILY RF: 0 hydroxychloroquine 200 mg tablet 200 mg PO DAILY RF: 0 Vitamin C 1 tab PO DAILY RF: 0 naproxen 1 tab PO BID RF: 0 vitamin E 1 cap PO DAILY RF: 0 trazodone 50 mg tablet 50 mg PO BEDTIME RF: 0 tramadol 50 MG tablet 50 mg PO BID PRN (Reason: pain) RF: 0 Nebulizer: Home Unit 1 ea miscellaneous DIRECTED RF: 0 Follow up/Referrals: Jus Rojas MD [Physician] - 02/11/19 3:00 pm (If you need to reach after hours please call our office and hold through the message. At the end you will be connected with the page controls operator molded goods) Anahi Malone ARNP [Primary Care Provider] - Provider Discharge Instructions Diet comment: Low fiber diet Activity: Avoid lifting over 10 lb or straining for the next 3 weeks. You may walk. Skin/Wound/Dressing Care Report to your healthcare provider any signs of infection, such as:: chills, fever, night sweats, increased pain, unusual drainage and unusual redness Dressing: Keep a Band-Aid on the site where the drain had been until it stops draining. You may take it off to shower. Visit Report/Discharge Packet Instructions: Diverticulitis Discharge Data Primary Care Provider: Anahi Malone Attending Provider: Jus Rojas Admit Date/Time: 01/28/19 18:55 Quality VTE Deep Vein Thrombosis/Pulmonary Embolism Present on Admission: No
--- NOTE | 2019-02-04 13:19 | PC.NURSE ---
Discharge Pt stated pain was controlled today without medication. Up independently in room. PIV removed prior to d/c. pt took all belongings home with her. d/c instructions provided to pt. Aware to f/u with MD and to contact them with any additional questions or concerns. pt left with [employer]OUTING INSTALLER escort.
== END 2019-02-04 13:15 | disposition home or self-care (01) | DRG 336 ==
LOC: ED 18:10 → AC 19:24
PROVIDERS: Admitting Provider Specialist; Emergency Provider Emergency Medicine; Family Provider Internal Medicine Critical Care Medicine; PCP Internal Medicine; Visit Provider Specialist
PROC: 0DN84ZZ Release Small Intestine, Percutaneous Endoscopic Approach (ICD-10-PCS; CPT 49000; principal; 2019-01-28 20:15)
DX: K57.32 Diverticulitis of large intestine without perforation or abscess without bleeding (principal); K56.50 Intestinal adhesions [bands], unspecified as to partial versus complete obstruction; N70.93 Salpingitis and oophoritis, unspecified; J44.9 Chronic obstructive pulmonary disease, unspecified; Z87.891 Personal history of nicotine dependence; G89.29 Other chronic pain; D64.9 Anemia, unspecified
CPT/HCPCS: 36415; 36591; 44180; 74022; 74177; 80053; 81003; 81015; 83690; 83735; 85025; 85610; 85730; 87086; 93005; 94640; 94760; 96374; 97116; 97161; 97530; 99232; 99283; 99285; J1100; J1170; J1650; J1885; J2060; J2270; J2405; J2543; J2704; J3010; J7613

== ENCOUNTER → 2019-02-11 15:58 | Outpatient (CLI) | payer OTHER, MEDICARE, SELFPAY ==
[2019-01-28 19:51] VITALS: BMI 22.3
[2019-02-11 18:19] LABS: Hematocrit 36.6 % (36-46); Hemoglobin 11.7 g/dL (12.0-16.0); Mean Corpuscular Hemoglobin 25.9 PG (26-34); Platelet Count 487 X10^3/uL (150-400); Red Blood Cell Count 4.52 X10^6/uL (4.0-5.2); Red Cell Distribution Width 14.9 % (11.6-14.8); White Blood Cell Count 7.6 X10^3/uL (4.5-11.0)
[2019-02-11 19:14] LABS: Neutrophils Absolute Manual 3648 /uL (3000-5900); Total Cells Counted 100
[2019-02-11 19:15] LABS: RBC Morphology Normal Morphology
== END ==
PROVIDERS: Family Provider Internal Medicine Critical Care Medicine; PCP Internal Medicine; Visit Provider Specialist
DX: K57.32 Diverticulitis of large intestine without perforation or abscess without bleeding (principal)
CPT/HCPCS: 36415; 85025

== ENCOUNTER → 2019-08-18 11:25 | Outpatient (CLI) | payer OTHER, MEDICARE, SELFPAY ==
[2019-01-28 19:51] VITALS: BMI 22.3
--- NOTE | 2019-08-18 | DI.MG.S_ITS ---
BILATERAL DIGITAL SCREENING MAMMOGRAM 3D/2D WITH CAD: 08/18/2019 CLINICAL: Routine screening. Family history of breast cancer. Comparison is made to exams dated: 08/14/2018 mammogram, 08/10/2017 mammogram, and 07/27/2016 mammogram - [facility]. There are scattered fibroglandular elements in both breasts. Current study was also evaluated with a Computer Aided Detection (CAD) system. No significant masses, calcifications, or other findings are seen in either breast. There has been no significant interval change. IMPRESSION: NEGATIVE There is no mammographic evidence of malignancy. A 1 year screening mammogram is recommended. This exam was interpreted at Station ID: [id number]. NOTE: For mammograms, a report in lay terms will be sent to the patient. Approximately 15% of breast malignancies will not be visualized mammographically. In the management of a palpable breast mass, a negative mammogram must not discourage biopsy of a clinically suspicious lesion. Electronically Signed By: Siva gee/morales:08/18/2019 18:10:18 letter sent: Normal Exam ACR BI-RADS Category 1: Negative 3341F
== END ==
PROVIDERS: Family Provider Internal Medicine Critical Care Medicine; PCP Internal Medicine; Visit Provider Internal Medicine
DX: Z12.31 Encounter for screening mammogram for malignant neoplasm of breast (principal); Z80.3 Family history of malignant neoplasm of breast
CPT/HCPCS: 77063; 77067

== ENCOUNTER → 2020-01-13 11:08 | Outpatient (CLI) | payer OTHER, MEDICARE, SELFPAY ==
[2019-01-28 19:51] VITALS: BMI 22.3
--- NOTE | 2020-01-13 | DI.RAD.S_ITS ---
PROCEDURE: XR HIP W PEL IF DONE RT 2V INDICATIONS: RIGHT HIP PAIN, RHEUMATOID ARTHRITIS TECHNIQUE: AP pelvis with lateral view(s) of the right hip(s). COMPARISON: [facility], CR, XR ACUTE ABDOMEN SERIES, 01/31/2019, 5:25. FINDINGS: Bones: No fractures or dislocations. Pelvic ring appears intact. No suspicious bony lesions. Lumbar spondylosis and facet arthropathy. Mild bilateral hip joint degeneration. Scattered degenerative subchondral sclerosis and spurring. Soft tissues: The visualized bowel gas pattern is normal. No suspicious soft tissue calcifications. IMPRESSION: Mild bilateral hip joint degeneration Lower lumbar spondylosis and facet disease Dictated by: Duncan Reyes M.D. on 01/13/2020 at 12:56 Approved by: Duncan Reyes M.D. on 01/13/2020 at 12:58
== END ==
PROVIDERS: Family Provider Internal Medicine Critical Care Medicine; PCP Internal Medicine; Referring Provider Internal Medicine; Visit Provider Internal Medicine
DX: M25.551 Pain in right hip (principal); M06.9 Rheumatoid arthritis, unspecified; M16.11 Unilateral primary osteoarthritis, right hip; M47.816 Spondylosis without myelopathy or radiculopathy, lumbar region
CPT/HCPCS: 73502

== ENCOUNTER → 2020-03-18 14:09 | Outpatient (CLI) | payer OTHER, MEDICARE, SELFPAY ==
[2019-01-28 19:51] VITALS: BMI 22.3
== END ==
PROVIDERS: Family Provider Internal Medicine Critical Care Medicine; PCP Internal Medicine; Referring Provider Physician Assistant Medical; Visit Provider Physician Assistant Medical
DX: M81.0 Age-related osteoporosis without current pathological fracture (principal); Z78.0 Asymptomatic menopausal state; M06.9 Rheumatoid arthritis, unspecified; Z87.891 Personal history of nicotine dependence; Z82.62 Family history of osteoporosis
CPT/HCPCS: 77080

== ENCOUNTER → 2020-05-31 16:06 | Outpatient (CLI) | payer OTHER, SELFPAY ==
[2019-01-28 19:51] VITALS: BMI 22.3
--- NOTE | 2020-05-31 | DI.RAD.S_ITS ---
PROCEDURE: XR FOOT LT MIN 3V INDICATIONS: LEFT FOOT PAIN TECHNIQUE: 3 views of the foot were acquired. COMPARISON: [facility], , FOOT 3V LEFT, 05/12/2013, 10:45. FINDINGS: Bones: No fractures or dislocations. No suspicious bony lesions. Prominent bunionette. There is moderate 1st tarsometatarsal and metatarsophalangeal joint degeneration, and mild degeneration of multiple interphalangeal joints. Soft tissues: No tibiotalar joint effusion. Achilles tendon appears normal. IMPRESSION: 1. Prominent bunionette. 2. Moderate degenerative joint disease. Dictated by: La Mahajan M.D. on 05/31/2020 at 17:41 Approved by: La Mahajan M.D. on 05/31/2020 at 17:44
== END ==
PROVIDERS: Family Provider Internal Medicine Critical Care Medicine; PCP Internal Medicine; Referring Provider Internal Medicine; Visit Provider Internal Medicine
DX: M79.672 Pain in left foot (principal); M21.622 Bunionette of left foot; M19.072 Primary osteoarthritis, left ankle and foot
CPT/HCPCS: 73630

== ENCOUNTER → 2020-08-19 10:21 | Outpatient (CLI) | payer OTHER, SELFPAY ==
[2019-01-28 19:51] VITALS: BMI 22.3
--- NOTE | 2020-08-19 | DI.MG.S_ITS ---
BILATERAL DIGITAL SCREENING MAMMOGRAM 3D/2D WITH CAD: 08/19/2020 CLINICAL: Routine screening. Family history of breast cancer. Comparison is made to exams dated: 08/18/2019 mammogram, 08/14/2018 mammogram, and 08/10/2017 mammogram - [facility]. There are scattered fibroglandular elements in both breasts. Current study was also evaluated with a Computer Aided Detection (CAD) system. No significant masses, calcifications, or other findings are seen in either breast. There has been no significant interval change. IMPRESSION: NEGATIVE There is no mammographic evidence of malignancy. A 1 year screening mammogram is recommended. This exam was interpreted at Station ID: [id number]. NOTE: For mammograms, a report in lay terms will be sent to the patient. Approximately 15% of breast malignancies will not be visualized mammographically. In the management of a palpable breast mass, a negative mammogram must not discourage biopsy of a clinically suspicious lesion. Electronically Signed By: Sherif mandujano/mroales:08/19/2020 11:44:03 letter sent: Normal Exam ACR BI-RADS Category 1: Negative 3341F
== END ==
PROVIDERS: Family Provider Internal Medicine Critical Care Medicine; PCP Internal Medicine; Referring Provider Internal Medicine; Visit Provider Internal Medicine
DX: Z12.31 Encounter for screening mammogram for malignant neoplasm of breast (principal); Z80.3 Family history of malignant neoplasm of breast
CPT/HCPCS: 77063; 77067

== ENCOUNTER → 2020-09-27 11:34 | Outpatient (CLI) | payer OTHER, SELFPAY ==
[2019-01-28 19:51] VITALS: BMI 22.3
--- NOTE | 2020-09-27 | DI.RAD.S_ITS ---
PROCEDURE: XR SACRUM COCCYX MIN 2V INDICATIONS: LOW BACK PAIN/ GLF TECHNIQUE: 3 views of the sacrum and coccyx acquired. COMPARISON: None. FINDINGS: Bones: No acute fractures or dislocations. No suspicious bony lesions. Mild degenerative changes are seen at the sacroiliac joints. No osseous erosions or subchondral sclerosis is seen. Degenerative changes are also seen in the pubic symphysis in the included portions of the lumbar spine. Soft tissues: Visualized bowel gas pattern is normal. No suspicious soft tissue densities. IMPRESSION: Mild symmetric degenerative changes at the sacroiliac joints without radiographic signs of sacroiliitis. Degenerative changes are noted at the pubic symphysis and included lower lumbar spine. Dictated by: Sherif Carrasco M.D. on 09/27/2020 at 15:58 Approved by: Sherif Carrasco M.D. on 09/27/2020 at 16:00
--- NOTE | 2020-09-27 | DI.RAD.S_ITS ---
PROCEDURE: XR LUMBAR SPINE 2-3V INDICATIONS: LOW BACK PAIN/GLF TECHNIQUE: 3 views of the lumbar spine were acquired. COMPARISON: [facility], , -SPINE 2-3 VIEWS, 08/22/2017, 14:01. FINDINGS: Bones: 5 [id number] vertebrae are present. There is normal bony alignment. Vertebral body compression deformity at L3 is again noted. Multilevel degenerative disc space narrowing is present most severe at L4-5 and L5-S1. Severe foraminal narrowing is present at L5-S1. Partially bridging multilevel anterior osteophytes are present. No suspicious bony lesions. Soft tissues: Overlying bowel gas pattern is normal. No suspicious soft tissue calcifications. IMPRESSION: No acute fractures identified. However, if concern persists, short interval imaging follow-up in 7-[address]/MRI is recommended. Dictated by: Lyla Montana M.D. on 09/27/2020 at 16:11 Approved by: Lyla Montana M.D. on 09/27/2020 at 16:12
== END ==
PROVIDERS: Family Provider Internal Medicine Critical Care Medicine; PCP Internal Medicine; Referring Provider Internal Medicine; Visit Provider Internal Medicine
DX: M54.5 Low back pain (principal); M46.1 Sacroiliitis, not elsewhere classified; M47.816 Spondylosis without myelopathy or radiculopathy, lumbar region; M48.07 Spinal stenosis, lumbosacral region
CPT/HCPCS: 72100; 72220

== ENCOUNTER 2020-11-23 10:30 | Outpatient (RCR) | payer OTHER, SELFPAY ==
[2019-01-28 19:51] VITALS: BMI 22.3
--- NOTE | 2020-11-10 17:26 | PT.OIE ---
Current Diagnoses Rheumatoid arthritis, unspecified (11/10/20) Panniculitis affecting regions of neck and back, thoracolumbar region (11/10/20) Age-related osteoporosis without current pathological fracture (11/10/20) Difficulty in walking, not elsewhere classified (11/10/20) Abnormal posture (11/10/20) Past Medical History (Last Updated 02/11/19 @ 15:31 by Elvira Daniels RN) COPD (chronic obstructive pulmonary disease) Diverticulitis Past Surgical History (Last Reviewed 01/28/19 @ 19:22 by Jus Rojas MD) History of Status post colonoscopy (09/28/10) Status post hysterectomy Visit Care Team Role Provider Type THANH Ge Attending Provider Advanced Rough Rice Grader Primary Care Provider Referring Provider Specialty: [facility] Address: [address] [place] [address], [facility] Email: [email or web address] [facility] Initial Evaluation PT-OP-A Visit Information Start: 11/10/20 08:45 Freq: Status: Active Protocol: Document 11/10/20 14:30 AW (Rec: 11/10/20 17:04 AW [email or web address]) Out-Patient Physical Therapy Visit Information Visit Information Visit Type Initial Evaluation Visit Start Time 14:30 Visit Stop Time 15:15 Total Visit Minutes 45 Visit Number 1 Number of DISPLAY MAKER Visits 0 Evaluation Information Evaluation Date 11/10/20 Precautions Precautions osteoporosis with recent compression fracture PT-OP-B Current Condition Start: 11/10/20 08:45 Freq: Status: Active Protocol: Document 11/10/20 14:30 AW (Rec: 11/10/20 15:23 AW [id number]) Current Condition History of Current Condition Onset Date 09/20/20 Current Complaints low back and bilateral hip pain History of Current Condition Pt with history of a few ruptured discs over the years fell in early September. She felt lightheaded and nauseous after getting out of a hot bath and fell near her bed. She lives with her daughter who heard the fall. Pt did not hit her head. She had 10/10 pain for ~6 weeks and wasn't able to do anything other than getting in and out of bed during that time. She has improved slightly in the past few weeks and rates her pain as ~6/10. She takes tramadol daily for rheumatoid arthritis . For back and hip pain, she is now taking Tylenol during the afternoon and at night. Uses a heat wrap for pain management off and on all day. Turning in bed still hurts but she is otherwise getting relatively undisturbed sleep. Pt has history of osteoporosis and COPD. She does not use O2 at home. Prior Treatments and Tests x-rays - 09/27/20 - sacrum: Mild symmetric degenerative changes at the sacroiliac joints without radiographic signs of sacroiliitis. Degenerative changes are noted at the pubic symphysis and included lower lumbar spine. - lumbar spine: Bones: 5 non -rib-bearing vertebrae are present. There is normal bony alignment. Vertebral body compression deformity at L3 is again noted. Multilevel degenerative disc space narrowing is present most severe at L4-5 and L5-S1. Severe foraminal narrowing is present at L5-S1. Partially bridging multilevel anterior osteophytes are present. No suspicious bony lesions. MRI - at [facility] - compression fracture at unknown level(s) Future Testing and Treatments Planned none identified Treatment Goals Patient/Caregiver Goals Pt anticipates needing to move soon since she rents and the owners are planning to sell the house. She would like to be able to start packing and planning for her move. Prior Functional Status Baseline Function- ADL's Independent Baseline Function- Mobility Independent Baseline Function- Gait Able to complete all shopping, sit long hours for work. Baseline Function- Work/School Recently lost job at [employer] Baseline Function- Recreation/Hobbies Able to walk as far as she wanted without pain Current Functional Impairments (Reported) Functional Limitations- ADL's Needing help with shoes/socks/ lower body dressing tasks Functional Limitations- Mobility/Gait Pain with ambulation just around the block PT-OP-C Subjective Start: 11/10/20 08:45 Freq: Status: Active Protocol: Document 11/10/20 14:30 AW (Rec: 11/10/20 17:04 AW [email or web address]) Patient Questionnaires Oswestry Low Back Index Oswestry Score 38 Oswestry Impairment 20 to 39% Impaired (Score 20- 39) Other Questionnaire Name and Score Keel STarT Back Screening Tool : total score 6; subscore 3. OP-PT Pain Assessment Pain Assessment Grid Paper Pain Assessment Grid Completed Yes Location right groin Pain Location Details R groin Intensity 4 Scale Used Numeric (0 - 10) Frequency Intermittent Radiating Location numbness to calf, dorsal foot low back/B hips Pain Location Details low back and bilateral hips Intensity 6 Scale Used Numeric (0 - 10) Description Spasm Frequency Frequent Pain Alleviating Factors Heat,Medication PT-OP-D Balance Start: 11/10/20 08:45 Freq: Status: Active Protocol: Document 11/10/20 14:30 AW (Rec: 11/10/20 17:04 AW [email or web address]) OP-PT Balance Assessment Sitting Balance Static Sitting Balance Ability Normal Dynamic Sitting Balance Ability Good Standing Balance Static Standing Balance Ability Fair Dynamic Standing Balance Ability Fair Device Used no AD Balance Tests Single Limb Standing Single Limb- Right 3 sec, 2 sec, 4 sec Single Limb- Left 2 sec, 1 sec, 1 sec Michelle Fall Scale Copyright Permission PT-OP-F Manual Assessment Start: 11/10/20 08:45 Freq: Status: Active Protocol: Document 11/10/20 14:30 AW (Rec: 11/10/20 17:04 AW [email or web address]) Manual Assessments Soft Tissue Assessment Soft Tissue Mobility Assessment Moderately increased tone bilateral paraspinals and gluteal musculature with left more affected than right. Joint Mobility Assessment Joint Mobility Assessment Limited lumbar exam due to high reactivity, especially in extension. PT-OP-G Mobility & Gait Start: 11/10/20 08:45 Freq: Status: Active Protocol: Document 11/10/20 14:30 AW (Rec: 11/10/20 17:04 AW [email or web address]) OP Gait Assessment Gait Gait Assistance Required: Independent Distance (Feet) 100 Assistive Devices Assistive Device None Orthotic/Prosthetic Devices or Brace: No Gait Deviations General Gait Pattern Antalgic,Decreased Stride Length,Decreased Feet Clearance,Flexed Trunk,Lateral Trunk Lean Factors Limiting Gait Function Factors Limiting Gait Function Decreased Activity Tolerance, Decreased Sensation,Decreased Strength,Limited Range of Motion,Pain,Poor Balance Comments Gait Comments Pt ambulates with increased trunk flexion and right rotation, left hip ER and slight left foot pronation. PT-OP-H Neuro Start: 11/10/20 08:45 Freq: Status: Active Protocol: Document 11/10/20 14:30 AW (Rec: 11/10/20 17:04 AW [email or web address]) Sensation Evaluation Gross Sensation Gross Sensation Right LE Impaired Sensation Description Numbness Dermatome Impairments L4,L5,S1 Deep Tendon Reflex & Clonus Assessment Deep Tendon Reflex Bilateral Achilles Deep Tendon Reflex 1+ Diminished Bilateral Patellar Deep Tendon Reflex 2+ Normal PT-OP-K Range of Motion Start: 11/10/20 08:45 Freq: Status: Active Protocol: Document 11/10/20 14:30 AW (Rec: 11/10/20 17:25 AW [email or web address]) Lumbar Spine Range of Motion Lumbar Spine Active Degrees Testing Position Standing Flexion 50 Extension 5 ROM Limitations Soft Tissue Tightness,Muscle Tone,Pain Comments Lateral flexion with longest fingertip 19 from the floor on the right, 21 from the floor on the left. Rotation in sitting ~25% each direction with report of pain. Hip Goniometric Range of Motion Hip bilateral Hip ROM WFL Yes Comments Limited IR bilaterally with pain at end range Hip ROM Limitations Hip ROM Limitations Soft Tissue Tightness,Pain PT-OP-L Special Tests Start: 11/10/20 08:45 Freq: Status: Active Protocol: Document 11/10/20 14:30 AW (Rec: 11/10/20 17:25 AW [email or web address]) Special Tests Lumbar Spine Special Tests Slump Test Results negative bilaterally PT-OP-M Strength Start: 11/10/20 08:45 Freq: Status: Active Protocol: Document 11/10/20 14:30 AW (Rec: 11/10/20 17:25 AW [email or web address]) Hip Strength Hip Manual Muscle Testing Left Flexion (L2) 4 Good Extension (S1) 3- Fair- Abduction 4- Good- External Rotation 4+ Good+ Internal Rotation 4 Good Right Flexion (L2) 4+ Good+ Extension (S1) 3 Fair Abduction 4- Good- External Rotation 4+ Good+ Internal Rotation 4+ Good+ Knee Strength Knee Manual Muscle Testing bilateral Flexion (S2) 4+ Good+ Extension (L3) 4+ Good+ PT-OP-T Assessment and Plan Start: 11/10/20 08:45 Freq: Status: Active Protocol: Document 11/10/20 14:30 AW (Rec: 11/10/20 17:25 AW [email or web address]) Physical Therapy Assessment Rehab Potential Rehabilitation Potential Good Evaluation Complexity Number of Personal Factors/Comorbidities 1-2 Number of Body Systems Impaired 1-2 Clinical Presentation at Evaluation Evolving Impairments Impairments Activity Tolerance,Balance, Functional Activities, Functional Mobility,Gait,Pain, Posture,ROM,Sensation,Soft Tissue Mobility,Strength Goals Four Impairment Strength Short Term Goal (STG) Pt will increase bilateral hip extension MMT to 4/5 STG Duration 6 weeks - 12/22/20 Fpc Goal (LTG) Pt will tolerate single leg stance bilaterally at least 20 seconds to demontrate improved strength, stability, and for improved gait mechanics. LTG Duration 3 months - 02/10/21 Three Impairment ROM Short Term Goal (STG) Pt will tolerate prone press up on elbows without increase in baseline pain STG Duration 6 weeks - 12/22/20 Fpc Goal (LTG) Pt will demonstrate 15 degrees lumbar extension LTG Duration 3 months - 02/10/21 Two Impairment risk of chronicity, catastrophization Short Term Goal (STG) Pt will score 4 or less total score on Eladio STarT Back to demonstrate reduced risk of chronicity STG Duration 6 weeks - 12/22/20 Sales Operations Associate Goal (LTG) Pt will score 3 or less total score on Eladio STarT Back to demonstrate low risk of chronicity LTG Duration 3 months - 02/10/21 One Impairment Pt lacks HEP Short Term Goal (STG) Pt will be independent with HEP for support of therapy services provided in clinic STG Duration 4 weeks - 12/08/20 Sales Operations Associate Goal (LTG) Pt will participate in regular walking program. LTG Duration 3 months - 02/10/21 Assessment Summary Assessment Valarie is a 75 yo woman seen in outpatient PT with complaints of low back pain, bilateral hip pain, right groin pain, and numbness in anterior leg/ dorsal foot. She fell on September 20, 2020 while feeling lightheaded and nauseous after a hot bath and has had pain limiting her function since that time. X-rays were negative but recent MRI ( report unavailable to this PT) reveal lumbar compression fracture(s). Pt presents with moderately increased tone of bilateral paraspinals and gluteal musculature, decreased hip strength, and impaired hip ROM which are affecting her ability to walk more than one block and have impacted her ability to care for herself. Pt will benefit from skilled PT to address these impairments, reduce risk of chronicity, and reduce risks associated with immobility including falls and medical complications. Physical Therapy Plan Frequency and Duration Frequency of Treatment 2x/Week Duration of Treatment 3 months Plan of Care Start Date 11/10/20 Plan of Care End Date 02/10/21 Therapeutic Interventions Therapeutic Interventions Balance Training,Gait Training ,Home Exercise Program,Joint Mobilizations,Manual Therapy, Neuromuscular Re-education, Patient/Caregiver Education, Self-Care/Home Management,Soft Tissue Mobilization,Taping, Therapeutic Activities, Therapeutic Exercises Modalities Electric Stimulation,Hot Packs Next Visit Focus/Plan Next Note Type Treatment Note Next Visit Plan initiate lumbar mobility, hip mobility, and gentle hip strengthening; STM as tolerated for reduction of tone
--- NOTE | 2020-11-17 12:23 | PT.OTN ---
Current Diagnoses Rheumatoid arthritis, unspecified (11/17/20) Panniculitis affecting regions of neck and back, thoracolumbar region (11/17/20) Age-related osteoporosis without current pathological fracture (11/17/20) Difficulty in walking, not elsewhere classified (11/17/20) Abnormal posture (11/17/20) Physical Therapy Treatment Note PT-OP-A Visit Information Start: 11/10/20 08:45 Freq: Status: Active Protocol: Document 11/17/20 09:45 AW (Rec: 11/17/20 09:45 AW [id number]) Out-Patient Physical Therapy Visit Information Visit Information Visit Type Treatment Note Visit Start Time 09:00 Visit Stop Time 09:45 Total Visit Minutes 45 Visit Number 2 Number of TEACHER LIP READING Visits 0 Evaluation Information Evaluation Date 11/10/20 Precautions Precautions osteoporosis with recent compression fracture PT-OP-B Current Condition Start: 11/10/20 08:45 Freq: Status: Active Protocol: Document 11/10/20 14:30 AW (Rec: 11/10/20 15:23 AW [id number]) Current Condition History of Current Condition Onset Date 09/20/20 Current Complaints low back and bilateral hip pain History of Current Condition Pt with history of a few ruptured discs over the years fell in early September. She felt lightheaded and nauseous after getting out of a hot bath and fell near her bed. She lives with her daughter who heard the fall. Pt did not hit her head. She had 10/10 pain for ~6 weeks and wasn't able to do anything other than getting in and out of bed during that time. She has improved slightly in the past few weeks and rates her pain as ~6/10. She takes tramadol daily for rheumatoid arthritis . For back and hip pain, she is now taking Tylenol during the afternoon and at night. Uses a heat wrap for pain management off and on all day. Turning in bed still hurts but she is otherwise getting relatively undisturbed sleep. Pt has history of osteoporosis and COPD. She does not use O2 at home. Prior Treatments and Tests x-rays - 09/27/20 - sacrum: Mild symmetric degenerative changes at the sacroiliac joints without radiographic signs of sacroiliitis. Degenerative changes are noted at the pubic symphysis and included lower lumbar spine. - lumbar spine: Bones: 5 non -rib-bearing vertebrae are present. There is normal bony alignment. Vertebral body compression deformity at L3 is again noted. Multilevel degenerative disc space narrowing is present most severe at L4-5 and L5-S1. Severe foraminal narrowing is present at L5-S1. Partially bridging multilevel anterior osteophytes are present. No suspicious bony lesions. MRI - at [facility] - compression fracture at unknown level(s) Future Testing and Treatments Planned none identified Treatment Goals Patient/Caregiver Goals Pt anticipates needing to move soon since she rents and the owners are planning to sell the house. She would like to be able to start packing and planning for her move. Prior Functional Status Baseline Function- ADL's Independent Baseline Function- Mobility Independent Baseline Function- Gait Able to complete all shopping, sit long hours for work. Baseline Function- Work/School Recently lost job at [employer]. Baseline Function- Recreation/Hobbies Able to walk as far as she wanted without pain Current Functional Impairments (Reported) Functional Limitations- ADL's Needing help with shoes/socks/ lower body dressing tasks Functional Limitations- Mobility/Gait Pain with ambulation just around the block PT-OP-C Subjective Start: 11/10/20 08:45 Freq: Status: Active Protocol: Document 11/17/20 09:45 AW (Rec: 11/17/20 09:45 AW [id number]) OP-PT Subjective Patient Comments Patient Comments Pt states has been taking it easy due to increasing pain across the low back but was able to do some safe movement last night. PT-OP-D Balance Start: 11/10/20 08:45 Freq: Status: Active Protocol: Document 11/10/20 14:30 AW (Rec: 11/10/20 17:04 AW [email or web address]) OP-PT Balance Assessment Sitting Balance Static Sitting Balance Ability Normal Dynamic Sitting Balance Ability Good Standing Balance Static Standing Balance Ability Fair Dynamic Standing Balance Ability Fair Device Used no AD Balance Tests Single Limb Standing Single Limb- Right 3 sec, 2 sec, 4 sec Single Limb- Left 2 sec, 1 sec, 1 sec Michelle Fall Scale Copyright Permission PT-OP-F Manual Assessment Start: 11/10/20 08:45 Freq: Status: Active Protocol: Document 11/10/20 14:30 AW (Rec: 11/10/20 17:04 AW [email or web address]) Manual Assessments Soft Tissue Assessment Soft Tissue Mobility Assessment Moderately increased tone bilateral paraspinals and gluteal musculature with left more affected than right. Joint Mobility Assessment Joint Mobility Assessment Limited lumbar exam due to high reactivity, especially in extension. PT-OP-G Mobility & Gait Start: 11/10/20 08:45 Freq: Status: Active Protocol: Document 11/10/20 14:30 AW (Rec: 11/10/20 17:04 AW [email or web address]) OP Gait Assessment Gait Gait Assistance Required: Independent Distance (Feet) 100 Assistive Devices Assistive Device None Orthotic/Prosthetic Devices or Brace: No Gait Deviations General Gait Pattern Antalgic,Decreased Stride Length,Decreased Feet Clearance,Flexed Trunk,Lateral Trunk Lean Factors Limiting Gait Function Factors Limiting Gait Function Decreased Activity Tolerance, Decreased Sensation,Decreased Strength,Limited Range of Motion,Pain,Poor Balance Comments Gait Comments Pt ambulates with increased trunk flexion and right rotation, left hip ER and slight left foot pronation. PT-OP-H Neuro Start: 11/10/20 08:45 Freq: Status: Active Protocol: Document 11/10/20 14:30 AW (Rec: 11/10/20 17:04 AW [email or web address]) Sensation Evaluation Gross Sensation Gross Sensation Right LE Impaired Sensation Description Numbness Dermatome Impairments L4,L5,S1 Deep Tendon Reflex & Clonus Assessment Deep Tendon Reflex Bilateral Achilles Deep Tendon Reflex 1+ Diminished Bilateral Patellar Deep Tendon Reflex 2+ Normal PT-OP-K Range of Motion Start: 11/10/20 08:45 Freq: Status: Active Protocol: Document 11/10/20 14:30 AW (Rec: 11/10/20 17:25 AW [email or web address]) Lumbar Spine Range of Motion Lumbar Spine Active Degrees Testing Position Standing Flexion 50 Extension 5 ROM Limitations Soft Tissue Tightness,Muscle Tone,Pain Comments Lateral flexion with longest fingertip 19 from the floor on the right, 21 from the floor on the left. Rotation in sitting ~25% each direction with report of pain. Hip Goniometric Range of Motion Hip bilateral Hip ROM WFL Yes Comments Limited IR bilaterally with pain at end range Hip ROM Limitations Hip ROM Limitations Soft Tissue Tightness,Pain PT-OP-L Special Tests Start: 11/10/20 08:45 Freq: Status: Active Protocol: Document 11/10/20 14:30 AW (Rec: 11/10/20 17:25 AW [email or web address]) Special Tests Lumbar Spine Special Tests Slump Test Results negative bilaterally PT-OP-M Strength Start: 11/10/20 08:45 Freq: Status: Active Protocol: Document 11/10/20 14:30 AW (Rec: 11/10/20 17:25 AW [email or web address]) Hip Strength Hip Manual Muscle Testing Left Flexion (L2) 4 Good Extension (S1) 3- Fair- Abduction 4- Good- External Rotation 4+ Good+ Internal Rotation 4 Good Right Flexion (L2) 4+ Good+ Extension (S1) 3 Fair Abduction 4- Good- External Rotation 4+ Good+ Internal Rotation 4+ Good+ Knee Strength Knee Manual Muscle Testing bilateral Flexion (S2) 4+ Good+ Extension (L3) 4+ Good+ PT-OP-Q Treatments Start: 11/10/20 08:45 Freq: Status: Active Protocol: Document 11/17/20 09:45 AW (Rec: 11/17/20 09:45 AW [id number]) Therapeutic Exercises Supine Exercises glute sets Supine Exercise Name glute sets Side bilateral Reps/Minutes x12 Comments cued TrA awareness PPT Supine Exercise Name PPT Reps/Minutes x15 LTR Supine Exercise Name LTR Side bilateral Reps/Minutes 10 x 2 bent knee fall out Supine Exercise Name bent knee fall out Side bilateral Reps/Minutes 10 x 2 Comments cued TrA awareness/draw in Sitting Exercises flexion stretch Sitting Exercise Name flexion stretch Comments cued segmental awareness HS stretch Sitting Exercise Name HS stretch Side bilateral Reps/Minutes 30 SH x 4 Comments cued hip hinge vs lumbar flexion hip abd/ER Sitting Exercise Name hip abd/ER Side bilateral Resistance level 1 Equipment Used TB Reps/Minutes x15 Manual Therapy Treatment Soft Tissue Mobilization B paraspinals Body Location B lumbar paraspinals Mobilization Type Myofascial Release,Sustained Pressure Intensity/Depth Superficial Body Position Sidelying Comments Pt highly reactive, unable to tolerate moderate pressure PT-OP-T Assessment and Plan Start: 11/10/20 08:45 Freq: Status: Active Protocol: Document 11/17/20 09:45 AW (Rec: 11/17/20 12:23 AW [email or web address]) Physical Therapy Assessment Impairments Impairments Activity Tolerance,Balance, Functional Activities, Functional Mobility,Gait,Pain, Posture,ROM,Sensation,Soft Tissue Mobility,Strength Goals Four Impairment Strength Short Term Goal (STG) Pt will increase bilateral hip extension MMT to 4/5 STG Duration 6 weeks - 12/22/20 Long-Term Goal (LTG) Pt will tolerate single leg stance bilaterally at least 20 seconds to demontrate improved strength, stability, and for improved gait mechanics. LTG Duration 3 months - 02/10/21 Three Impairment ROM Short Term Goal (STG) Pt will tolerate prone press up on elbows without increase in baseline pain STG Duration 6 weeks - 12/22/20 Bookbinding Machine Operator Goal (LTG) Pt will demonstrate 15 degrees lumbar extension LTG Duration 3 months - 02/10/21 Two Impairment risk of chronicity, catastrophization Short Term Goal (STG) Pt will score 4 or less total score on Eladio STarT Back to demonstrate reduced risk of chronicity STG Duration 6 weeks - 12/22/20 Bookbinding Machine Operator Goal (LTG) Pt will score 3 or less total score on Eladio STarT Back to demonstrate low risk of chronicity LTG Duration 3 months - 02/10/21 One Impairment Pt lacks HEP Short Term Goal (STG) Pt will be independent with HEP for support of therapy services provided in clinic STG Duration 4 weeks - 12/08/20 Bookbinding Machine Operator Goal (LTG) Pt will participate in regular walking program. LTG Duration 3 months - 02/10/21 Assessment Summary Assessment Treatment focused on lumbar mobility and awareness of lumbar posture in supported position. Pt tolerated well with no complaint of RLE numbness today. Physical Therapy Plan Frequency and Duration Frequency of Treatment 2x/Week Duration of Treatment 3 months Plan of Care Start Date 11/10/20 Plan of Care End Date 02/10/21 Therapeutic Interventions Therapeutic Interventions Balance Training,Gait Training ,Home Exercise Program,Joint Mobilizations,Manual Therapy, Neuromuscular Re-education, Patient/Caregiver Education, Self-Care/Home Management,Soft Tissue Mobilization,Taping, Therapeutic Activities, Therapeutic Exercises Modalities Electric Stimulation,Hot Packs Next Visit Focus/Plan Next Note Type Treatment Note Next Visit Plan continue lumbar mobility, hip mobility, and gentle hip strengthening; STM as tolerated for reduction of tone
--- NOTE | 2020-11-23 10:30 | PT.OTN ---
Current Diagnoses Rheumatoid arthritis, unspecified (11/23/20) Panniculitis affecting regions of neck and back, thoracolumbar region (11/23/20) Age-related osteoporosis without current pathological fracture (11/23/20) Difficulty in walking, not elsewhere classified (11/23/20) Abnormal posture (11/23/20) Physical Therapy Treatment Note PT-OP-A Visit Information Start: 11/10/20 08:45 Freq: Status: Active Protocol: Document 11/23/20 10:30 DLM (Rec: 11/23/20 15:22 DLM [email or web address]) Out-Patient Physical Therapy Visit Information Visit Information Visit Type Treatment Note Visit Start Time 10:30 Visit Stop Time 11:25 Total Visit Minutes 55 Visit Number 3 Number of NAT INSTRUCTOR Visits 0 Evaluation Information Evaluation Date 11/10/20 Precautions Precautions osteoporosis with recent compression fracture at L3 PT-OP-B Current Condition Start: 11/10/20 08:45 Freq: Status: Active Protocol: Document 11/10/20 14:30 AW (Rec: 11/10/20 15:23 AW [id number]) Current Condition History of Current Condition Onset Date 09/20/20 Current Complaints low back and bilateral hip pain History of Current Condition Pt with history of a few ruptured discs over the years fell in early September. She felt lightheaded and nauseous after getting out of a hot bath and fell near her bed. She lives with her daughter who heard the fall. Pt did not hit her head. She had 10/10 pain for ~6 weeks and wasn't able to do anything other than getting in and out of bed during that time. She has improved slightly in the past few weeks and rates her pain as ~6/10. She takes tramadol daily for rheumatoid arthritis . For back and hip pain, she is now taking Tylenol during the afternoon and at night. Uses a heat wrap for pain management off and on all day. Turning in bed still hurts but she is otherwise getting relatively undisturbed sleep. Pt has history of osteoporosis and COPD. She does not use O2 at home. Prior Treatments and Tests x-rays - 09/27/20 - sacrum: Mild symmetric degenerative changes at the sacroiliac joints without radiographic signs of sacroiliitis. Degenerative changes are noted at the pubic symphysis and included lower lumbar spine. - lumbar spine: Bones: 5 non -rib-bearing vertebrae are present. There is normal bony alignment. Vertebral body compression deformity at L3 is again noted. Multilevel degenerative disc space narrowing is present most severe at L4-5 and L5-S1. Severe foraminal narrowing is present at L5-S1. Partially bridging multilevel anterior osteophytes are present. No suspicious bony lesions. MRI - at [facility] - compression fracture at unknown level(s) Future Testing and Treatments Planned none identified Treatment Goals Patient/Caregiver Goals Pt anticipates needing to move soon since she rents and the owners are planning to sell the house. She would like to be able to start packing and planning for her move. Prior Functional Status Baseline Function- ADL's Independent Baseline Function- Mobility Independent Baseline Function- Gait Able to complete all shopping, sit long hours for work. Baseline Function- Work/School Recently lost job at [employer]. Baseline Function- Recreation/Hobbies Able to walk as far as she wanted without pain Current Functional Impairments (Reported) Functional Limitations- ADL's Needing help with shoes/socks/ lower body dressing tasks Functional Limitations- Mobility/Gait Pain with ambulation just around the block PT-OP-C Subjective Start: 11/10/20 08:45 Freq: Status: Active Protocol: Document 11/23/20 10:30 DLM (Rec: 11/23/20 15:22 DLM [email or web address]) OP-PT Subjective Patient Comments Patient Comments She had increased back pain that radiated into her groin for 5 days after the last treatment session. She has not done the exercises at home due to fear of increasing her pain. She questions if she should continue coming to therapy. OP-PT Pain Assessment Location low back/B hips Pain Location Details low back and bilateral hips Intensity 3 Scale Used Numeric (0 - 10) Description Aching,Spasm Frequency Constant Pain Alleviating Factors Heat,Medication Pain Behaviors Pain Behaviors Guarding PT-OP-D Balance Start: 11/10/20 08:45 Freq: Status: Active Protocol: Document 11/10/20 14:30 AW (Rec: 11/10/20 17:04 AW [email or web address]) OP-PT Balance Assessment Sitting Balance Static Sitting Balance Ability Normal Dynamic Sitting Balance Ability Good Standing Balance Static Standing Balance Ability Fair Dynamic Standing Balance Ability Fair Device Used no AD Balance Tests Single Limb Standing Single Limb- Right 3 sec, 2 sec, 4 sec Single Limb- Left 2 sec, 1 sec, 1 sec Michelle Fall Scale Copyright Permission PT-OP-F Manual Assessment Start: 11/10/20 08:45 Freq: Status: Active Protocol: Document 11/10/20 14:30 AW (Rec: 11/10/20 17:04 AW [email or web address]) Manual Assessments Soft Tissue Assessment Soft Tissue Mobility Assessment Moderately increased tone bilateral paraspinals and gluteal musculature with left more affected than right. Joint Mobility Assessment Joint Mobility Assessment Limited lumbar exam due to high reactivity, especially in extension. PT-OP-G Mobility & Gait Start: 11/10/20 08:45 Freq: Status: Active Protocol: Document 11/10/20 14:30 AW (Rec: 11/10/20 17:04 AW [email or web address]) OP Gait Assessment Gait Gait Assistance Required: Independent Distance (Feet) 100 Assistive Devices Assistive Device None Orthotic/Prosthetic Devices or Brace: No Gait Deviations General Gait Pattern Antalgic,Decreased Stride Length,Decreased Feet Clearance,Flexed Trunk,Lateral Trunk Lean Factors Limiting Gait Function Factors Limiting Gait Function Decreased Activity Tolerance, Decreased Sensation,Decreased Strength,Limited Range of Motion,Pain,Poor Balance Comments Gait Comments Pt ambulates with increased trunk flexion and right rotation, left hip ER and slight left foot pronation. PT-OP-H Neuro Start: 11/10/20 08:45 Freq: Status: Active Protocol: Document 11/10/20 14:30 AW (Rec: 11/10/20 17:04 AW [email or web address]) Sensation Evaluation Gross Sensation Gross Sensation Right LE Impaired Sensation Description Numbness Dermatome Impairments L4,L5,S1 Deep Tendon Reflex & Clonus Assessment Deep Tendon Reflex Bilateral Achilles Deep Tendon Reflex 1+ Diminished Bilateral Patellar Deep Tendon Reflex 2+ Normal PT-OP-K Range of Motion Start: 11/10/20 08:45 Freq: Status: Active Protocol: Document 11/10/20 14:30 AW (Rec: 11/10/20 17:25 AW [email or web address]) Lumbar Spine Range of Motion Lumbar Spine Active Degrees Testing Position Standing Flexion 50 Extension 5 ROM Limitations Soft Tissue Tightness,Muscle Tone,Pain Comments Lateral flexion with longest fingertip 19 from the floor on the right, 21 from the floor on the left. Rotation in sitting ~25% each direction with report of pain. Hip Goniometric Range of Motion Hip bilateral Hip ROM WFL Yes Comments Limited IR bilaterally with pain at end range Hip ROM Limitations Hip ROM Limitations Soft Tissue Tightness,Pain PT-OP-L Special Tests Start: 11/10/20 08:45 Freq: Status: Active Protocol: Document 11/10/20 14:30 AW (Rec: 11/10/20 17:25 AW [email or web address]) Special Tests Lumbar Spine Special Tests Slump Test Results negative bilaterally PT-OP-M Strength Start: 11/10/20 08:45 Freq: Status: Active Protocol: Document 11/10/20 14:30 AW (Rec: 11/10/20 17:25 AW [email or web address]) Hip Strength Hip Manual Muscle Testing Left Flexion (L2) 4 Good Extension (S1) 3- Fair- Abduction 4- Good- External Rotation 4+ Good+ Internal Rotation 4 Good Right Flexion (L2) 4+ Good+ Extension (S1) 3 Fair Abduction 4- Good- External Rotation 4+ Good+ Internal Rotation 4+ Good+ Knee Strength Knee Manual Muscle Testing bilateral Flexion (S2) 4+ Good+ Extension (L3) 4+ Good+ PT-OP-Q Treatments Start: 11/10/20 08:45 Freq: Status: Active Protocol: Document 11/23/20 10:30 DLM (Rec: 11/23/20 15:22 DLM [email or web address]) Therapeutic Exercises Supine Exercises Hip Abduction Supine Exercise Name Hooklying hip Abduction Side bilateral Resistance Level one Equipment Used theraband Reps/Minutes 10 reps in small ROM Hip Adduction Supine Exercise Name Hooklying hip Adduction Side bilateral Resistance isometric Equipment Used foam Reps/Minutes 10 reps Single Knee to Chest Supine Exercise Name Single Knee to chest stretch Side bilateral Resistance gentle Reps/Minutes 2 each side glute sets Supine Exercise Name glute sets Side bilateral Reps/Minutes x12 PPT Supine Exercise Name Post Pelvic Tilt Reps/Minutes 10 Comments minimize motion, isometric LTR Supine Exercise Name Lower trunk rotation Comments Held bent knee fall out Supine Exercise Name bent knee fall out Side bilateral Reps/Minutes 10 reps Comments v.c., pain on right side so limited ROM Sitting Exercises flexion stretch Sitting Exercise Name flexion stretch Comments Held exercise due to pain HS stretch Sitting Exercise Name HS Stretch Comments held ex due to pain hip abd/ER Sitting Exercise Name hip abd/ER Comments changed to hooklying Manual Therapy Treatment Soft Tissue Mobilization B paraspinals Body Location B lumbar paraspinals Mobilization Type Myofascial Release,Sustained Pressure Intensity/Depth Superficial Body Position Sidelying PT-OP-R Modalities Start: 11/10/20 08:45 Freq: Status: Active Protocol: Document 11/23/20 10:30 DLM (Rec: 11/23/20 15:23 DLM [email or web address]) Hot Pack/Cold Pack Treatment Hot Pack Location lumbosacral area Patient Position Sitting Treatment Duration (minutes) 15 Patient Tolerance Good Comments pt prefers sitting position, this is what she does at home PT-OP-T Assessment and Plan Start: 11/10/20 08:45 Freq: Status: Active Protocol: Document 11/23/20 10:30 DLM (Rec: 11/23/20 15:22 DLM [email or web address]) Physical Therapy Assessment Goals Four Impairment Strength Short Term Goal (STG) Pt will increase bilateral hip extension MMT to 4/5 STG Duration 6 weeks - 12/22/20 Custodial Goal (LTG) Pt will tolerate single leg stance bilaterally at least 20 seconds to demontrate improved strength, stability, and for improved gait mechanics. LTG Duration 3 months - 02/10/21 Three Impairment ROM Short Term Goal (STG) Pt will tolerate prone press up on elbows without increase in baseline pain STG Duration 6 weeks - 12/22/20 Custodial Goal (LTG) Pt will demonstrate 15 degrees lumbar extension LTG Duration 3 months - 02/10/21 Two Impairment risk of chronicity, catastrophization Short Term Goal (STG) Pt will score 4 or less total score on Eladio STarT Back to demonstrate reduced risk of chronicity STG Duration 6 weeks - 12/22/20 Custodial Goal (LTG) Pt will score 3 or less total score on Eladio STarT Back to demonstrate low risk of chronicity LTG Duration 3 months - 02/10/21 One Impairment Pt lacks HEP Short Term Goal (STG) Pt will be independent with [facility] for support of therapy services provided in clinic STG Duration 4 weeks - 12/08/20 [facility] Goal (LTG) Pt will participate in regular walking program. LTG Duration 3 months - 02/10/21 Progress Towards Goals Progress Comments no progress at this time, tolerated last visit poorly with increased pain Assessment Summary Assessment Modified her exercises to better manage her pain. She reports having increased back pain for 5 days after last visit but no increased pain during this visit. Concerned that she does not tolerate movements well yet so focused on stabalization this visit with minimal spinal movement. Pain increased from 3/10 to 5/ 10 at the end of this visit so heat was used to manage the pain increase at the end of the visit. Will have to assess her response to the change in her exercises next visit. Physical Therapy Plan Frequency and Duration Frequency of Treatment 2x/Week Duration of Treatment 3 months Plan of Care Start Date 11/10/20 Plan of Care End Date 02/10/21 Therapeutic Interventions Therapeutic Interventions Balance Training,Gait Training ,Home Exercise Program,Joint Mobilizations,Manual Therapy, Neuromuscular Re-education, Patient/Caregiver Education, Self-Care/Home Management,Soft Tissue Mobilization,Taping, Therapeutic Activities, Therapeutic Exercises Modalities Electric Stimulation,Hot Packs Next Visit Focus/Plan Next Note Type Treatment Note Next Visit Plan assess response to change in exercises, focus on stabilization exercises as tolerated by pain
--- NOTE | 2021-03-30 08:31 | PT.OPDS ---
Current Diagnoses Rheumatoid arthritis, unspecified (11/23/20) Panniculitis affecting regions of neck and back, thoracolumbar region (11/23/20) Age-related osteoporosis without current pathological fracture (11/23/20) Difficulty in walking, not elsewhere classified (11/23/20) Abnormal posture (11/23/20) Visit Care Team Role Provider Type THANH Ge Attending Provider Advanced Cheesemaker Primary Care Provider Referring Provider Specialty: [facility] Address: [address] [place] [address], [facility] [place] [place], [facility] Email: [email or web address] Visit Number Visit Number 3 Discharge Summary PT-OP-B Current Condition Start: 11/10/20 08:45 Freq: Status: Active Protocol: Document 11/10/20 14:30 AW (Rec: 11/10/20 15:23 AW [id number]) Current Condition History of Current Condition Onset Date 09/20/20 Current Complaints low back and bilateral hip pain History of Current Condition Pt with history of a few ruptured discs over the years fell in early September. She felt lightheaded and nauseous after getting out of a hot bath and fell near her bed. She lives with her daughter who heard the fall. Pt did not hit her head. She had 10/10 pain for ~6 weeks and wasn't able to do anything other than getting in and out of bed during that time. She has improved slightly in the past few weeks and rates her pain as ~6/10. She takes tramadol daily for rheumatoid arthritis . For back and hip pain, she is now taking Tylenol during the afternoon and at night. Uses a heat wrap for pain management off and on all day. Turning in bed still hurts but she is otherwise getting relatively undisturbed sleep. Pt has history of osteoporosis and COPD. She does not use O2 at home. Prior Treatments and Tests x-rays - 09/27/20 - sacrum: Mild symmetric degenerative changes at the sacroiliac joints without radiographic signs of sacroiliitis. Degenerative changes are noted at the pubic symphysis and included lower lumbar spine. - lumbar spine: Bones: 5 non -rib-bearing vertebrae are present. There is normal bony alignment. Vertebral body compression deformity at L3 is again noted. Multilevel degenerative disc space narrowing is present most severe at L4-5 and L5-S1. Severe foraminal narrowing is present at L5-S1. Partially bridging multilevel anterior osteophytes are present. No suspicious bony lesions. MRI - at [facility] - compression fracture at unknown level(s) Future Testing and Treatments Planned none identified Treatment Goals Patient/Caregiver Goals Pt anticipates needing to move soon since she rents and the owners are planning to sell the house. She would like to be able to start packing and planning for her move. Prior Functional Status Baseline Function- ADL's Independent Baseline Function- Mobility Independent Baseline Function- Gait Able to complete all shopping, sit long hours for work. Baseline Function- Work/School Recently lost job at [employer]. Baseline Function- Recreation/Hobbies Able to walk as far as she wanted without pain Current Functional Impairments (Reported) Functional Limitations- ADL's Needing help with shoes/socks/ lower body dressing tasks Functional Limitations- Mobility/Gait Pain with ambulation just around the block PT-OP-C Subjective Start: 11/10/20 08:45 Freq: Status: Active Protocol: Document 11/23/20 10:30 DLM (Rec: 11/23/20 15:22 DLM [email or web address]) OP-PT Subjective Patient Comments Patient Comments She had increased back pain that radiated into her groin for 5 days after the last treatment session. She has not done the exercises at home due to fear of increasing her pain. She questions if she should continue coming to therapy. OP-PT Pain Assessment Location low back/B hips Pain Location Details low back and bilateral hips Intensity 3 Scale Used Numeric (0 - 10) Description Aching,Spasm Frequency Constant Pain Alleviating Factors Heat,Medication Pain Behaviors Pain Behaviors Guarding PT-OP-D Balance Start: 11/10/20 08:45 Freq: Status: Active Protocol: Document 11/10/20 14:30 AW (Rec: 11/10/20 17:04 AW [email or web address]) OP-PT Balance Assessment Sitting Balance Static Sitting Balance Ability Normal Dynamic Sitting Balance Ability Good Standing Balance Static Standing Balance Ability Fair Dynamic Standing Balance Ability Fair Device Used no AD Balance Tests Single Limb Standing Single Limb- Right 3 sec, 2 sec, 4 sec Single Limb- Left 2 sec, 1 sec, 1 sec Michelle Fall Scale Copyright Permission PT-OP-F Manual Assessment Start: 11/10/20 08:45 Freq: Status: Active Protocol: Document 11/10/20 14:30 AW (Rec: 11/10/20 17:04 AW [email or web address]) Manual Assessments Soft Tissue Assessment Soft Tissue Mobility Assessment Moderately increased tone bilateral paraspinals and gluteal musculature with left more affected than right. Joint Mobility Assessment Joint Mobility Assessment Limited lumbar exam due to high reactivity, especially in extension. PT-OP-G Mobility & Gait Start: 11/10/20 08:45 Freq: Status: Active Protocol: Document 11/10/20 14:30 AW (Rec: 11/10/20 17:04 AW [email or web address]) OP Gait Assessment Gait Gait Assistance Required: Independent Distance (Feet) 100 Assistive Devices Assistive Device None Orthotic/Prosthetic Devices or Brace: No Gait Deviations General Gait Pattern Antalgic,Decreased Stride Length,Decreased Feet Clearance,Flexed Trunk,Lateral Trunk Lean Factors Limiting Gait Function Factors Limiting Gait Function Decreased Activity Tolerance, Decreased Sensation,Decreased Strength,Limited Range of Motion,Pain,Poor Balance Comments Gait Comments Pt ambulates with increased trunk flexion and right rotation, left hip ER and slight left foot pronation. PT-OP-H Neuro Start: 11/10/20 08:45 Freq: Status: Active Protocol: Document 11/10/20 14:30 AW (Rec: 11/10/20 17:04 AW [email or web address]) Sensation Evaluation Gross Sensation Gross Sensation Right LE Impaired Sensation Description Numbness Dermatome Impairments L4,L5,S1 Deep Tendon Reflex & Clonus Assessment Deep Tendon Reflex Bilateral Achilles Deep Tendon Reflex 1+ Diminished Bilateral Patellar Deep Tendon Reflex 2+ Normal PT-OP-K Range of Motion Start: 11/10/20 08:45 Freq: Status: Active Protocol: Document 11/10/20 14:30 AW (Rec: 11/10/20 17:25 AW [email or web address]) Lumbar Spine Range of Motion Lumbar Spine Active Degrees Testing Position Standing Flexion 50 Extension 5 ROM Limitations Soft Tissue Tightness,Muscle Tone,Pain Comments Lateral flexion with longest fingertip 19 from the floor on the right, 21 from the floor on the left. Rotation in sitting ~25% each direction with report of pain. Hip Goniometric Range of Motion Hip bilateral Hip ROM WFL Yes Comments Limited IR bilaterally with pain at end range Hip ROM Limitations Hip ROM Limitations Soft Tissue Tightness,Pain PT-OP-L Special Tests Start: 11/10/20 08:45 Freq: Status: Active Protocol: Document 11/10/20 14:30 AW (Rec: 11/10/20 17:25 AW [email or web address]) Special Tests Lumbar Spine Special Tests Slump Test Results negative bilaterally PT-OP-M Strength Start: 11/10/20 08:45 Freq: Status: Active Protocol: Document 11/10/20 14:30 AW (Rec: 11/10/20 17:25 AW [email or web address]) Hip Strength Hip Manual Muscle Testing Left Flexion (L2) 4 Good Extension (S1) 3- Fair- Abduction 4- Good- External Rotation 4+ Good+ Internal Rotation 4 Good Right Flexion (L2) 4+ Good+ Extension (S1) 3 Fair Abduction 4- Good- External Rotation 4+ Good+ Internal Rotation 4+ Good+ Knee Strength Knee Manual Muscle Testing bilateral Flexion (S2) 4+ Good+ Extension (L3) 4+ Good+ PT-OP-T Assessment and Plan Start: 11/10/20 08:45 Freq: Status: Active Protocol: Document 03/30/21 08:30 AW (Rec: 03/30/21 08:31 AW [email or web address]) Physical Therapy Plan Discharge Physical Therapy Discharge Reasons No Longer Attending PT Discharge Comments Pt was called to schedule more appointment but has not attended PT in several months. Will discharge current plan of care at this time.
== END 2021-03-31 15:31 | disposition home or self-care (01) ==
LOC: PHYS 10:30
PROVIDERS: PCP Internal Medicine; Referring Provider Internal Medicine; Visit Provider Internal Medicine
DX: M54.05 Panniculitis affecting regions of neck and back, thoracolumbar region (principal); M06.9 Rheumatoid arthritis, unspecified; M81.0 Age-related osteoporosis without current pathological fracture; R29.3 Abnormal posture; R26.2 Difficulty in walking, not elsewhere classified
CPT/HCPCS: 97010; 97110; 97140; 97161

== ENCOUNTER → 2022-04-25 12:25 | Outpatient (CLI) | payer MEDICARE, SELFPAY ==
[2019-01-28 19:51] VITALS: BMI 22.3
== END ==
PROVIDERS: PCP Internal Medicine; Referring Provider Internal Medicine; Visit Provider Internal Medicine
DX: M81.0 Age-related osteoporosis without current pathological fracture (principal); M85.851 Other specified disorders of bone density and structure, right thigh
CPT/HCPCS: 77080

== ENCOUNTER → 2022-07-17 12:31 | Outpatient (ROUT) | payer MEDICARE, SELFPAY ==
[2019-01-28 19:51] VITALS: BMI 22.3
[2022-07-17 13:44] LABS: Influenza A - CEPHEID Flu A POSITIVE (NEGATIVE); Influenza B - CEPHEID Flu B NEGATIVE (NEGATIVE); Respiratory Syncytial Virus Negative (Negative)
[2022-07-17 14:03] LABS: COVID-19 CEPHEID 4-PLEX PCR Negative (Negative)
== END ==
PROVIDERS: PCP Internal Medicine; Visit Provider Internal Medicine
DX: R05.9 Cough, unspecified (principal); R06.02 Shortness of breath
CPT/HCPCS: 0241U

== ENCOUNTER 2022-07-27 14:15 | Observation (INO) | payer MEDICARE, SELFPAY ==
[2019-01-28 19:51] VITALS: BMI 22.3
[2022-07-27] VITALS (20 sets, daily range): BP systolic 143–185; BP diastolic 80–98; PULSE 86–104; RESP 16–30; TEMP 36.5–36.8; O2SAT 90–97; BMI 20.5
--- NOTE | 2022-07-27 | DI.CT.S_ITS ---
PROCEDURE: CT ANGIO HEAD AND NECK INDICATIONS: confusion TECHNIQUE: Pre-contrast 4.5 mm thick sections acquired from the foramen magnum to the vertex. After the administration of intravenous contrast, 1 mm thick sections acquired from the aortic arch through the [place]. Post-contrast 4.5 mm thick sections then re-acquired from the foramen magnum to the vertex. 3-dimensional [id number] (MIP) and/or volume rendering reformats were acquired of the central intracranial vasculature and neck separately. For radiation dose reduction, the following was used: automated exposure control, adjustment of mA and/or kV according to patient size. COMPARISON: None. FINDINGS: Image quality: Excellent. BRAIN: CSF spaces: Ventricles are normal in size and shape. Basal cisterns are patent. No extra-axial fluid collections. Brain: No midline shift. No intracranial bleeds or masses. Torres-white matter interface appears intact. Skull and face: Calvarium and facial bones appear intact, without suspicious lesions. Orbits appear normal. Sinuses: Sinuses and mastoids are clear. HEAD CT ANGIOGRAPHY: Anterior circulation: Intracranial internal carotid arteries are normal in size and flow. The flow within the paired anterior cerebral arteries is normal and symmetric. The flow within the middle cerebral arteries is normal and symmetric. The anterior communicating artery is seen. No aneurysms are seen. Posterior circulation: Visualized portions of the vertebral arteries demonstrate normal caliber, and join to form a normal appearing basilar artery. Flow within the posterior cerebral arteries is normal and symmetric. No aneurysms are seen. NECK CT ANGIOGRAPHY: Carotid system: The great vessels demonstrate a conventional anatomy as they arise from the aortic arch. The origins of the common carotid arteries appear patent. The common carotid arteries demonstrate normal caliber and courses. The bifurcation regions are both widely patent. The internal carotid arteries demonstrate normal calibers and courses. Posterior circulation: The origins of the vertebral arteries both appear widely patent. The more superior extracranial portions of both vertebral arteries also demonstrate normal courses and calibers. They join to form a normal appearing basilar artery. Soft tissues: Visualized neck soft tissues demonstrate no suspicious abnormalities. Bones: No suspicious bony lesions. Visualized cervical spine appears normally aligned. IMPRESSION: No hemodynamically significant stenosis of the major cervical or intracranial arterial vasculature. No acute intracranial finding. Any quantitative measurements of stenosis were performed using NASCET criteria. Dictated by: Steven Amor M.D. on 07/27/2022 at 13:36 Approved by: Steven Amor M.D. on 07/27/2022 at 13:37
--- NOTE | 2022-07-27 | DI.CT.S_ITS ---
PROCEDURE: CT STROKE INDICATIONS: strok TECHNIQUE: Noncontrast 4.5 mm thick angled axial sections acquired from the foramen magnum to the vertex, with coronal reformats. For radiation dose reduction, the following was used: automated exposure control, adjustment of mA and/or kV according to patient size. COMPARISON: None. FINDINGS: Image quality: Excellent. CSF spaces: Basal cisterns are patent. No extra-axial fluid collections. The ventricles are symmetric in size and shape. Brain: Inferior left cerebellar hemispheric infarct with encephalomalacia and gliosis. Mild global cerebral volume loss and chronic microvascular ischemic changes. No findings of recent ischemia. No acute intracranial hemorrhage, mass effect midline shift. Skull and face: Calvarium and visualized facial bones appear intact, without suspicious lesions. Sinuses: Visualized sinuses and mastoids are clear. IMPRESSION: No acute finding. Remote left inferior cerebellar hemispheric infarct. Findings were discussed with Dr. Hair at time of dictation. This study fulfills neurological imaging criteria for inclusion or exclusion of acute stroke therapies based on available published neurological guidelines. Dictated by: Steven Amor M.D. on 07/27/2022 at 13:24 Approved by: Steven Amor M.D. on 07/27/2022 at 13:25
--- NOTE | 2022-07-27 14:18 | ED_ITS ---
HPI - Neuro Symptoms/Deficit General Chief Complaint: Neuro Symptoms/Deficit Stated Complaint: Code Stroke Time Seen by Provider: 07/27/22 14:16 History of Present Illness HPI Narrative: Code stroke was called at 2:05 p.m.. Patient arrived at 2:10 p.m.. Patient brought immediately to CT scan imaging. EMS reports blood sugar of 97. Was hypertensive at scene. According to EMS, law enforcement and [employer] were at patient's car/roadside to help her get into the car. Unknown how long she was outside of her car, locked outside of it. However she did get inside and she locked herself in the car while police and [employer] were there. They were giving her instructions how to get out of the car/unlock it but she could not follow instructions very well. EMS was called for assist. The law enforcement spoke with son by phone and stated that she was not acting her normal self. Patient is moving all 4 limbs. Has very stuttered slow speech. But no facial droop or pronator drift. Has strong equal supervisor soakers. Last well no is uncertain at this time. However law enforcement and [employer] were contacted by phone at 1:15 p.m.. Related Data Home Medications Medication Instructions Recorded Confirmed tiotropium bromide 18 mcg capsule 1 puff INH DAILY ##0 09/14/17 02/11/19 with inhalation device (Spiriva with HandiHaler) Nebulizer: Home Unit 1 ea miscellaneous DIRECTED 01/28/19 02/11/19 Vitamin C 1 tab PO DAILY 01/28/19 02/11/19 acetaminophen 325 mg tablet 325 mg PO BID 01/28/19 02/11/19 fluticasone 250 mcg-salmeterol 50 1 puff inhalation BID 01/28/19 02/11/19 mcg/dose blistr powdr for inhalation folic acid 1 mg tablet 1 mg PO DAILY 01/28/19 02/11/19 hydroxychloroquine 200 mg tablet 200 mg PO DAILY 01/28/19 02/11/19 naproxen 1 tab PO BID 01/28/19 02/11/19 tramadol 50 mg tablet 50 mg PO BID PRN pain 01/28/19 02/11/19 trazodone 50 mg tablet 50 mg PO BEDTIME 01/28/19 02/11/19 vitamin E 1 cap PO DAILY 01/28/19 02/11/19 Previous Rx's Medication Instructions Recorded albuterol sulfate 90 mcg/actuation 2 puff INH Q4H PRN #2 inhalations 09/15/16 aerosol inhaler (Ventolin HFA) omeprazole 20 mg capsule,delayed 20 mg PO DAILY #90 caps 07/22/18 release ciprofloxacin HCl 500 mg tablet 500 mg PO BID Diverticulitis #7 02/04/19 tabs ciprofloxacin HCl 500 mg tablet 500 mg PO BID #0 tabs 02/04/19 (Cipro) metronidazole 500 mg tablet 500 mg PO TID #0 tabs 02/04/19 metronidazole 500 mg tablet 500 mg PO TID Diverticulitis #10 02/04/19 (Flagyl) tabs Allergies Allergy/AdvReac Type Severity Reaction Status Date / Time Sulfa (Sulfonamide Allergy Severe rash Verified 07/27/22 14:27 Antibiotics) [SULFA (SULFONAMIDE ANTIBIOTICS)] hydrocodone [HYDROCODONE] AdvReac Mild itching Verified 07/27/22 14:27 methotrexate [METHOTREXATE] AdvReac Mild hair loss Verified 07/27/22 14:27 Review of Systems Review of Systems Narrative: GENERAL: negative chills, fatigue, malaise, fever, sweats. HEENT: negative sinus pain, ear pain, sore throat RESPIRATORY: negative dyspnea, cough CARDIOVASCULAR: negative chest pain, palpitations GASTROINTESTINAL: negative nausea, vomiting, abdominal pain : negative dysuria, frequency, hematuria MUSCULOSKELETAL: negative muscle or bony pain SKIN: negative rash, skin lesions NEUROLOGIC: negative weakness, numbness, positive confusion, positive speech difficulty negative facial droop negative limb weakness, negative headache ROS Unobtainable: All systems reviewed & are unremarkable except as noted in HPI and below Patient History Medical History COPD (chronic obstructive pulmonary disease) Diverticulitis Surgical History History of Status post colonoscopy (09/28/10) Status post hysterectomy Family History Mother Malignant neoplasm of female breast, unspecified laterality, unspe cified site of breast Social History household members: family occupational status: employed Smoking Status: Former smoker Tobacco: How many years used: 40 alcohol intake: current substance use type: does not use Smoking Status: Former smoker alcohol intake frequency: 0-2 drinks per day Substance Use Type: does not use Exam Narrative Exam Narrative: GENERAL: in no distress, not toxic not dyspneic HEAD: Normocephalic. EYES: Pupils equal round No scleral icterus. ENT: Mucous membranes moist. NECK: Trachea midline. CARDIOVASCULAR: Regular rate and rhythm without murmurs RESPIRATORY: Clear to auscultation. Breath sounds equal bilaterally. No wheezes, rales, or rhonchi. GASTROINTESTINAL: Abdomen soft, non-tender EXTREMITIES: No gross deformities. BACK: No flank tenderness. NEURO: Patient is awake alert oriented self and date of , does follow instructions. Does have slow stuttered speech. Negative pronator drift. Able to lift each arm and each leg off the bed and hold without assist. SKIN: Warm and dry PSYCH: Not anxious, is cooperative Initial Vital Signs Initial Vital Signs: Vital Signs Pulse Rate 92 H 07/27/22 14:22 Pulse Oximetry 94 07/27/22 14:22 Scores NIH Stroke Scale Level of Conciousness: Alert, keenly responsive Ask month/age: Answers both questions correctly. Open/close eyes, close hand: Performs both tasks correctly Best gaze horizontal: Normal Visual mooney: No visual loss Facial palsy: Normal symetrical movement Left arm drift: No drift for full 10 sec Right arm drift: No drift for full 10 sec Left leg drift: No drift for full 5 sec Right leg drift: No drift for full 5 sec Limb ataxia: Absent Sensory on face/arms/legs: Normal, no sensory loss Best language: Mild to moderate, slurs some words Dysarthria: Mild to mod,some slurring Extinction or inattention: No abnormality Total NIH Stroke scale score: 2 Course Course Course Narrative: No new issues during course of stay 2:30 p.m.. Spoke with radiologist. Noncontrast head CT no acute process Decision to Admit Date: 07/27/22 Decision to Admit time: 14:22 Orders Ordered: ED Orders 07/27/22 14:10 Complete Blood Count AUTO DIFF Stat Comprehensive Metabolic Panel Stat Ethanol (ETOH) Stat Partial Thromboplastin Time Stat Prothrombin Time INR Stat Troponin & CK Cardiac Panel Stat 07/27/22 14:19 COVID19 -Nasal RAPID/Pre-Proc Stat 07/27/22 14:28 EKG-12 Lead Stat 07/27/22 15:29 Urinalysis and Microscopic Stat Urine Drug Screen, Rapid Stat Acetaminophen (Acetaminophen 325 Mg Tablet) 650 mg PO Q6H PRN PRN Reason: Fever/Mild Pain (1-3) Aspirin (Aspirin Ec 81 Mg Tablet) 81 mg PO DAILY DARLENE Enoxaparin Sodium (Enoxaparin 40 Mg/0.4 Ml Syringe) 40 mg SUBCUT DAILY DARLENE Labetalol HCl (Labetalol 20 Mg/4 Ml Syringe) 10 mg IV Q5H PRN PRN Reason: SBP >220 or DBP >110 Melatonin (Melatonin 3 Mg Tablet) 6 mg PO BEDTIME PRN PRN Reason: Insomnia Naloxone HCl (Naloxone 0.4 Mg/Ml Vial) 0.2 mg IV Q2MIN PRN PRN Reason: Opiate Reversal Polyethylene Glycol (Polyethylene Glycol 3350 17 Gm Powd.Pack) 17 gm PO DAILY PRN PRN Reason: Constipation Sennosides (Sennosides 8.6 Mg Tablet) 8.6 mg PO BID PRN PRN Reason: Constipation Discontinued Medications Aspirin (Aspirin 81 Mg Chew Tab) 324 mg PO NOW ONE Stop: 07/27/22 17:02 Reevaluation(s) Reevaluation #1: Son is at bedside. Last well known was yesterday. Daughter at bedside as well. Last well known 3:00 p.m. yesterday. Daughter lives with patient. Daughter states she had the flu 2 weeks ago. However recently has becoming more confused. No fall or injury. No urinary complaints. No nausea vomiting diarrhea. Patient went to [facility] today she does remember getting her nails done but does not know where she got them done out. That is unusual for her. Reevaluation #2: Patient much more awake and alert and oriented now. Son at bedside says she is much better than arrival. She has clear speech at this time. Blood pressure noted but would like to continue for permissive hypertension for cerebral perfusion. Consultations Consultation #1: Spoke with hospitalist, Dr. Gan, will admit. Time: 17:29 Vital Signs Vital signs: Vital Signs - 8 hr 07/27/22 14:22 07/27/22 14:27 07/27/22 14:27 Pulse Rate 92 H 95 H Respiratory Rate 25 H Blood Pressure 176/88 H Pulse Oximetry 94 94 12/08/22 14:30 07/27/22 14:30 07/27/22 14:45 Pulse Rate 91 H 90 Respiratory Rate 30 H 23 Blood Pressure 183/84 H Pulse Oximetry 93 94 07/27/22 15:00 07/27/22 15:00 07/27/22 15:15 Pulse Rate 91 H 92 H Respiratory Rate 26 H 27 H Blood Pressure 185/84 H Pulse Oximetry 94 94 07/27/22 15:30 07/27/22 15:45 07/27/22 16:00 Pulse Rate 104 H 92 H 86 Respiratory Rate Blood Pressure Pulse Oximetry 90 L 92 93 07/27/22 16:15 07/27/22 16:30 07/27/22 16:45 Pulse Rate 88 87 93 H Respiratory Rate Blood Pressure Pulse Oximetry 92 92 93 07/27/22 17:00 Pulse Rate 95 H Respiratory Rate Blood Pressure Pulse Oximetry 93 MDM - Neuro Symptoms/Deficit Differential Diagnosis Differential diagnosis: Likely delirium, subarachnoid hemorrhage, cerebrovascular accident and transient cerebral ischemia Lab Data Result diagrams: 07/27/22 14:10 07/27/22 14:10 Labs: Lab Results 07/27/22 07/27/22 07/27/22 Range/Units 14:10 14:10 14:10 WBC 14.5 H (4.5-11.0) X10^3/uL RBC 5.27 H (4.0-5.2) X10^6/uL Hgb 13.7 (12.0-16.0) g/dL Hct 42.2 (36-46) % MCV 80.2 (80-100) fL MCH 25.9 L (26-34) PG MCHC 32.3 (30-36) % RDW 13.8 (11.6-14.8) % Plt Count 450 H (150-400) X10^3/uL Neut % (Auto) 77.0 H (50-75) % Lymph % (Auto) 12.7 L (25-40) % [place] % (Auto) 9.1 (3-14) % Eos % (Auto) 0.2 L (2-4) % Baso % (Auto) 1.0 (0-2) % Neut # (Auto) 03698 H (8594-9588) /uL Lymph # (Auto) 1900 (8219-5176) /uL [place] # (Auto) 1300 H (0-900) /uL Eos # (Auto) 0 (0-450) /uL Baso # (Auto) 100 (0-100) /uL PT 11.6 (10.1-12.7) SECONDS INR 1.0 (0.9-1.3) APTT 31 (26-36) SECONDS Sodium 142 (137-145) mmol/L Potassium 4.5 (3.4-5.1) mmol/L Chloride 100 (98-107) mmol/L Carbon Dioxide 29 (22-32) mmol/L BUN 24 H (7-17) mg/dL Creatinine 0.80 (0.52-1.04) mg/dL Estimated GFR > 60 (>60) mL/min BUN/Creatinine Ratio 30.0 H (6-22) Glucose 97 (80-110) mg/dL Hemoglobin A1c (4.0-6.0) % Calcium 10.1 (8.4-10.2) mg/dL Magnesium (1.6-2.3) mg/dL Total Bilirubin 1.2 (0.2-1.3) mg/dL AST 29 (14-36) IU/L ALT 35 H (<35) IU/L Alkaline Phosphatase 69 (38-126) U/L Total Creatine Kinase 57 (30-135) U/L CK-MB (CK-2) TNP CK-MB (CK-2) Rel Index TNP Troponin I < 0.012 (0.01-0.034) ng/mL Total Protein 8.5 H (6.3-8.2) g/dL Albumin 4.8 (3.5-5.0) g/dL Globulin 3.7 (1.7-4.1) g/dL Albumin/Globulin Ratio 1.3 (1.0-2.8) Triglycerides (35-150) mg/dL Cholesterol (140-199) mg/dL LDL Cholesterol, Calc (<100) mg/dL HDL Cholesterol (40-60) mg/dL TSH (0.47-4.68) uIU/mL Urine Color Urine Appearance Urine pH (4.5-8.0) Ur Specific [place] (1.000-1.035) Urine Protein (Negative) Urine Glucose (UA) (Negative) g/dL Urine Ketones (NEGATIVE) Urine Occult Blood (Negative) Urine Nitrate (Negative) Urine Bilirubin (NEGATIVE) Urine Urobilinogen (0.2) E.U./dL Ur Leukocyte Esterase (NEGATIVE) Urine RBC (0-5/HPF) Urine WBC (0-5/HPF) Ur Squamous Epith Cells (0-5/HPF) Amorphous Sediment Urine Bacteria (None) Hyaline Casts (None) Urine Mucus (Negative) Ur Culture Indicated? U Opiates 300ng/mL cut (Negative) Ur Oxycodone Screen (Negative) Urine Methadone Screen (Negative) Ur Barbiturates Screen (Negative) U Tricyclic Antidepress (Negative) Ur Phencyclidine Scrn (Negative) Ur Amphetamines Screen (Negative) U Methamphetamines Scrn (Negative) Ur MDMA Scrn (Ecstasy) (Negative) U Benzodiazepines Scrn (Negative) Urine Cocaine Screen (Negative) U Marijuana (THC) Screen (Negative) Ethyl Alcohol < 10 ( - 10) mg/dL SARS-CoV-2 (PCR) (Negative) 07/27/22 07/27/22 07/27/22 Range/Units 14:10 14:10 14:10 WBC (4.5-11.0) X10^3/uL RBC (4.0-5.2) X10^6/uL Hgb (12.0-16.0) g/dL Hct (36-46) % MCV (80-100) fL MCH (26-34) PG MCHC (30-36) % RDW (11.6-14.8) % Plt Count (150-400) X10^3/uL Neut % (Auto) (50-75) % Lymph % (Auto) (25-40) % [place] % (Auto) (3-14) % Eos % (Auto) (2-4) % Baso % (Auto) (0-2) % Neut # (Auto) (4236-8524) /uL Lymph # (Auto) (6205-2580) /uL [place] # (Auto) (0-900) /uL Eos # (Auto) (0-450) /uL Baso # (Auto) (0-100) /uL PT (10.1-12.7) SECONDS INR (0.9-1.3) APTT (26-36) SECONDS Sodium (137-145) mmol/L Potassium (3.4-5.1) mmol/L Chloride (98-107) mmol/L Carbon Dioxide (22-32) mmol/L BUN (7-17) mg/dL Creatinine (0.52-1.04) mg/dL Estimated GFR (>60) mL/min BUN/Creatinine Ratio (6-22) Glucose (80-110) mg/dL Hemoglobin A1c 5.8 (4.0-6.0) % Calcium (8.4-10.2) mg/dL Magnesium 2.3 (1.6-2.3) mg/dL Total Bilirubin (0.2-1.3) mg/dL AST (14-36) IU/L ALT (<35) IU/L Alkaline Phosphatase (38-126) U/L Total Creatine Kinase (30-135) U/L CK-MB (CK-2) CK-MB (CK-2) Rel Index Troponin I (0.01-0.034) ng/mL Total Protein (6.3-8.2) g/dL Albumin (3.5-5.0) g/dL Globulin (1.7-4.1) g/dL Albumin/Globulin Ratio (1.0-2.8) Triglycerides 113 (35-150) mg/dL Cholesterol 176 (140-199) mg/dL LDL Cholesterol, Calc 80 (<100) mg/dL HDL Cholesterol 73 H (40-60) mg/dL TSH 1.42 (0.47-4.68) uIU/mL Urine Color Urine Appearance Urine pH (4.5-8.0) Ur Specific [place] (1.000-1.035) Urine Protein (Negative) Urine Glucose (UA) (Negative) g/dL Urine Ketones (NEGATIVE) Urine Occult Blood (Negative) Urine Nitrate (Negative) Urine Bilirubin (NEGATIVE) Urine Urobilinogen (0.2) E.U./dL Ur Leukocyte Esterase (NEGATIVE) Urine RBC (0-5/HPF) Urine WBC (0-5/HPF) Ur Squamous Epith Cells (0-5/HPF) Amorphous Sediment Urine Bacteria (None) Hyaline Casts (None) Urine Mucus (Negative) Ur Culture Indicated? U Opiates 300ng/mL cut (Negative) Ur Oxycodone Screen (Negative) Urine Methadone Screen (Negative) Ur Barbiturates Screen (Negative) U Tricyclic Antidepress (Negative) Ur Phencyclidine Scrn (Negative) Ur Amphetamines Screen (Negative) U Methamphetamines Scrn (Negative) Ur MDMA Scrn (Ecstasy) (Negative) U Benzodiazepines Scrn (Negative) Urine Cocaine Screen (Negative) U Marijuana (THC) Screen (Negative) Ethyl Alcohol ( - 10) mg/dL SARS-CoV-2 (PCR) (Negative) 07/27/22 07/27/22 07/27/22 Range/Units 14:19 15:29 15:29 WBC (4.5-11.0) X10^3/uL RBC (4.0-5.2) X10^6/uL Hgb (12.0-16.0) g/dL Hct (36-46) % MCV (80-100) fL MCH (26-34) PG MCHC (30-36) % RDW (11.6-14.8) % Plt Count (150-400) X10^3/uL Neut % (Auto) (50-75) % Lymph % (Auto) (25-40) % [place] % (Auto) (3-14) % Eos % (Auto) (2-4) % Baso % (Auto) (0-2) % Neut # (Auto) (2627-8700) /uL Lymph # (Auto) (6099-9309) /uL [place] # (Auto) (0-900) /uL Eos # (Auto) (0-450) /uL Baso # (Auto) (0-100) /uL PT (10.1-12.7) SECONDS INR (0.9-1.3) APTT (26-36) SECONDS Sodium (137-145) mmol/L Potassium (3.4-5.1) mmol/L Chloride (98-107) mmol/L Carbon Dioxide (22-32) mmol/L BUN (7-17) mg/dL Creatinine (0.52-1.04) mg/dL Estimated GFR (>60) mL/min BUN/Creatinine Ratio (6-22) Glucose (80-110) mg/dL Hemoglobin A1c (4.0-6.0) % Calcium (8.4-10.2) mg/dL Magnesium (1.6-2.3) mg/dL Total Bilirubin (0.2-1.3) mg/dL AST (14-36) IU/L ALT (<35) IU/L Alkaline Phosphatase (38-126) U/L Total Creatine Kinase (30-135) U/L CK-MB (CK-2) CK-MB (CK-2) Rel Index Troponin I (0.01-0.034) ng/mL Total Protein (6.3-8.2) g/dL Albumin (3.5-5.0) g/dL Globulin (1.7-4.1) g/dL Albumin/Globulin Ratio (1.0-2.8) Triglycerides (35-150) mg/dL Cholesterol (140-199) mg/dL LDL Cholesterol, Calc (<100) mg/dL HDL Cholesterol (40-60) mg/dL TSH (0.47-4.68) uIU/mL Urine Color Yellow Urine Appearance Clear Urine pH 7.0 (4.5-8.0) Ur Specific [place] 1.015 (1.000-1.035) Urine Protein Trace H (Negative) Urine Glucose (UA) Negative (Negative) g/dL Urine Ketones 1+ H (NEGATIVE) Urine Occult Blood Negative (Negative) Urine Nitrate Negative (Negative) Urine Bilirubin Negative (NEGATIVE) Urine Urobilinogen 0.2 (0.2) E.U./dL Ur Leukocyte Esterase Negative (NEGATIVE) Urine RBC 0-1/hpf (0-5/HPF) Urine WBC 0-1/hpf (0-5/HPF) Ur Squamous Epith Cells None seen (0-5/HPF) Amorphous Sediment 1+ Urine Bacteria Occasional (0-1) (None) Hyaline Casts 5-10/lpf (None) Urine Mucus 1+ H (Negative) Ur Culture Indicated? Cult not indicated U Opiates 300ng/mL cut Negative (Negative) Ur Oxycodone Screen Negative (Negative) Urine Methadone Screen Negative (Negative) Ur Barbiturates Screen Negative (Negative) U Tricyclic Antidepress Negative (Negative) Ur Phencyclidine Scrn Negative (Negative) Ur Amphetamines Screen Negative (Negative) U Methamphetamines Scrn Negative (Negative) Ur MDMA Scrn (Ecstasy) Negative (Negative) U Benzodiazepines Scrn Negative (Negative) Urine Cocaine Screen Negative (Negative) U Marijuana (THC) Screen Negative (Negative) Ethyl Alcohol ( - 10) mg/dL SARS-CoV-2 (PCR) Negative (Negative) Point of Care Testing Glucose POC [address] scan - head: Radiologist's Impression: [address] [address] [address] Scan Report Signed Patient: Valarie Saleh MR#: [id number] : 1945 Acct:[id number] Age/Sex: 76 / F Date of Service: 07/27/22 Loc: ED Accession Number: [id number] ?? Procedure: CT Stroke Ordering Provider: Hermes Hair MD PROCEDURE:? CT STROKE ? INDICATIONS:? strok ? TECHNIQUE:? Noncontrast 4.5 mm thick angled axial sections acquired from the foramen magnum to the vertex, with coronal reformats.? For radiation dose reduction, the following was used:? automated exposure control, adjustment of mA and/or kV according to patient size.? ? COMPARISON:? None. ? FINDINGS:? Image quality:? Excellent.? ? CSF spaces:? Basal cisterns are patent.? No extra-axial fluid collections.? The ventricles are symmetric in size and shape.? ? Brain:? 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 Mild global cerebral volume loss and chronic microvascular ischemic changes.? No findings of recent ischemia.? No acute intracranial hemorrhage, mass effect midline shift. ? Skull and face:? Calvarium and visualized facial bones appear intact, without suspicious lesions.? ? Sinuses:? Visualized sinuses and mastoids are clear.? ? IMPRESSION:? No acute finding.? Remote left inferior cerebellar hemispheric infarct.? Findings were discussed with Dr. Hair at time of dictation. ? This study fulfills neurological imaging criteria for inclusion or exclusion of acute stroke therapies based on available published neurological guidelines.? ? ? Dictated by: Steven Amor M.D. on 07/27/2022 at 13:24 ? ? Approved by: Steven Amor M.D. on 07/27/2022 at 13:25 ? CTA - brain/neck: Radiologist's Impression: [address] [address] [address] Scan Report Signed Patient: Valarie Saleh MR#: [id number] : 1945 Acct:[id number] Age/Sex: 76 / F Date of Service: 07/27/22 Loc: ED Accession Number: [id number] ?? Procedure: CT angio head and neck Ordering Provider: Hermes Hair MD PROCEDURE:? CT ANGIO HEAD AND NECK ? INDICATIONS:? confusion ? TECHNIQUE:? Pre-contrast 4.5 mm thick sections acquired from the foramen magnum to the vertex.? After the administration of intravenous contrast, 1 mm thick sections acquired from the aortic arch through the [place] of [place].? Post-contrast 4.5 mm thick sections then re- acquired from the foramen magnum to the vertex.? 3-dimensional wyevvnt-telwiveai-xqzciqln on (MIP) and/or volume rendering reformats were acquired of the central intracranial vasculature and neck separately. For radiation dose reduction, the following was used:? automated exposure control, adjustment of mA and/or kV according to patient size.? ? COMPARISON:? None. ? FINDINGS:? Image quality:? Excellent.? ? BRAIN:? CSF spaces:? Ventricles are normal in size and shape.? Basal cisterns are patent.? No extra-axial fluid collections.? ? Brain:? No midline shift.? No intracranial bleeds or masses.? Torres-white matter interface appears intact.? ? Skull and face:? Calvarium and facial bones appear intact, without suspicious lesions.? Orbits appear normal.? ? Sinuses:? Sinuses and mastoids are clear.? ? HEAD CT ANGIOGRAPHY:? Anterior circulation:? Intracranial internal carotid arteries are normal in size and flow.? The flow within the paired anterior cerebral arteries is normal and sym metric.? The flow within the middle cerebral arteries is normal and symmetric.? The anterior communicating artery is seen.? No aneurysms are seen.? ? Posterior circulation:? Visualized portions of the vertebral arteries demonstrate normal caliber, and join to form a normal appearing basilar artery.? Flow within the posterior cerebral arteries is normal and symmetric.? No aneurysms are seen.? ? NECK CT ANGIOGRAPHY:? Carotid system:? The great vessels demonstrate a conventional anatomy as they arise from the aortic arch.? The origins of the common carotid arteries appear patent.? The common carotid arteries demonstrate normal caliber and courses.? The bifurcation regions are both widely patent.? The internal carotid arteries demonstrate normal calibers and courses.? ? Posterior circulation:? The origins of the vertebral arteries both appear widely patent.? The more superior extracranial portions of both vertebral arteries also demonstrate normal courses and calibers.? They join to form a normal appearing basilar artery.? ? Soft tissues:? Visualized neck soft tissues demonstrate no suspicious abnormalities.? ? Bones:? No suspicious bony lesions.? Visualized cervical spine appears normally aligned.? IMPRESSION: ? No hemodynamically significant stenosis of the major cervical or intracranial arterial vasculature. ? No acute intracranial finding. ? Any quantitative measurements of stenosis were performed using NASCET criteria.? ? ? Dictated by: Steven Amor M.D. on 07/27/2022 at 13:36 ? ? Approved by: Steven Amor M.D. on 07/27/2022 at 13:37 ? ECG Data Interpretation: Normal sinus rhythm rate [address] elevation or depression MDM Narrative Medical decision making narrative: Appropriate for admission. Patient will need balance workup for TIA. Symptoms have resolved since arrival. No tPA indicated. At this time no neurology consult as onset last well known was 3:00 p.m. yesterday. Symptoms have resolved and no to be indicated. Patient and family understand need for admit and agree for admit. Reviewed with hospitalist agree for admit as well. Stroke Core Measures Exclusion Criteria TPA in CVA: Symptom Onset >3 or 4.5 Hours Discharge Plan Departure Patient Disposition: Admitted as Observation Clinical Impression: Transient cerebral ischemia Admit Date/Time: 07/27/22 17:03 Admit Provider: Garrett Gan
[2022-07-27 14:29] LABS: Add Manual Diff / Slide Review NO; Basophils Absolute Auto 100 /uL (0-100); Eosinophils Absolute Auto 0 /uL (0-450); Eosinophils Percent Auto 0.2 % (2-4); Hematocrit 42.2 % (36-46); Hemoglobin 13.7 g/dL (12.0-16.0); Lymphocytes Absolute Auto 1900 /uL (1100-4500); Lymphocytes Percent Auto 12.7 % (25-40); Mean Corpuscular HGB Conc 32.3 % (30-36); Mean Corpuscular Hemoglobin 25.9 PG (26-34); Mean Corpuscular Volume 80.2 fL (80-100); Monocytes Absolute Auto 1300 /uL (0-900); Monocytes Percent Auto 9.1 % (3-14); Neutrophils Absolute Auto 11200 /uL (1500-7000); Platelet Count 450 X10^3/uL (150-400); Red Blood Cell Count 5.27 X10^6/uL (4.0-5.2); Red Cell Distribution Width 13.8 % (11.6-14.8); White Blood Cell Count 14.5 X10^3/uL (4.5-11.0)
[2022-07-27 14:36] LABS: Prothrombin Time 11.6 SECONDS (10.1-12.7)
[2022-07-27 14:39] LABS: PTT Partial Thromboplastin Tim 31 SECONDS (26-36)
[2022-07-27 14:42] LABS: Alanine Aminotransferase 35 IU/L (<35); Albumin 4.8 g/dL (3.5-5.0); Albumin Globulin Ratio 1.3 (1.0-2.8); Alkaline Phosphatase 69 U/L (38-126); Aspartate Aminotransferase 29 IU/L (14-36); Bilirubin Total 1.2 mg/dL (0.2-1.3); Blood Urea Nitrogen 24 mg/dL (7-17); Calcium 10.1 mg/dL (8.4-10.2); Carbon Dioxide 29 mmol/L (22-32); Chloride 100 mmol/L (98-107); Creatine Kinase 57 U/L (30-135); Estimated Glomerular Filt Rate > 60 mL/min (>60); Ethanol (ETOH) < 10 mg/dL; Globulin 3.7 g/dL (1.7-4.1); Glucose 97 mg/dL (80-110); HEMOLYSIS < 15 (0-50); Potassium 4.5 mmol/L (3.4-5.1); Sodium 142 mmol/L (137-145); Total Protein 8.5 g/dL (6.3-8.2)
[2022-07-27 14:53] LABS: Troponin I < 0.012 ng/mL (0.01-0.034)
[2022-07-27 15:48] LABS: COVID19 -Nasal RAPID Negative (Negative)
[2022-07-27 16:12] LABS: Appearance Urine UA CLEAR; Bilirubin Urine UA NEGATIVE (NEGATIVE); Color Urine UA YELLOW; Glucose Urine UA NEGATIVE (Negative); Ketones Urine UA 1+ (NEGATIVE); Leukocyte Esterase Urine UA NEGATIVE (NEGATIVE); Nitrite Urine UA NEGATIVE (Negative); Occult Blood Urine UA NEGATIVE (Negative); Protein Urine UA TRACE (Negative); Specific Gravity Urine UA 1.015 (1.000-1.035); Urobilinogen Urine UA 0.2 E.U./dL (0.2)
[2022-07-27 16:55] LABS: UR Morphine/Opiate cutoff 300 Negative (Negative); Ur Creatinine Normal (Normal); Ur Specific Gravity Normal (Normal); Urine Amphetamines Negative (Negative); Urine Barbiturates Negative (Negative); Urine Benzodiazepines Negative (Negative); Urine Cocaine Negative (Negative); Urine MDMA Negative (Negative); Urine Methadone Negative (Negative); Urine Methamphetamines Negative (Negative); Urine Oxycodone Negative (Negative); Urine Phencyclidine Negative (Negative); Urine Tetrahydrocannabinol Negative (Negative); Urine Tricyclic Antidepressant Negative (Negative); Urine pH Normal (Normal)
[2022-07-27 17:04] LABS: Amorphous Sediment Urine 1+; Bacteria Urine Occasional (0-1); Hyaline Casts Urine 5-10/LPF; Mucus Urine 1+ (Negative); RBC Urine 0-1/HPF (0-5/HPF); Squamous Epithelial Cell Urine None Seen (0-5/HPF); WBC Urine 0-1/HPF (0-5/HPF)
[2022-07-27 17:05] LABS: Culture Indicated Urine Cult Not Indicated
--- NOTE | 2022-07-27 17:10 | DI.ECHO.S_ITS ---
[facility] +---------+ : : [address] : : : : [id number] : : : : Phone: [phone] Echocardiogram Report + + :Name: KELY HURT Study Date: 07/28/2022 Height: 62 in : :[facility] ReadingLocation: Weight: 112 lb : : Gender: Female BSA: 1.5 m2 : :: 1945 Age: 76 yrs BP: 134/83 mmHg: :Reason For Study: TIA : :Ordering Physician: Elvai, : :Garrett Performed By: Omega Iyer : :Referring: Garrett Gan : + + Interpretation Summary 1) Normal left ventricular thickness, size, wall motion, and systolic function (EF 55-60%). 2) Normal right ventricular size and function. 3) No significant valvular abnormalities. 4) There is mild to moderate tricuspid regurgitation. 5) The right ventricular systolic pressure is estimated to be at least 40 mmHg based on an estimated right atrial pressure of 3 mm Hg. 6) No prior Echo available for comparison. Procedure: A two-dimensional transthoracic echocardiogram with color flow and Doppler was performed. The study quality was technically adequate. There is no prior echocardiogram noted for this patient. The patient was in normal sinus rhythm during the exam. Left Ventricle: The left ventricle is normal in size and wall thickness. Left ventricular systolic function is normal. The ejection fraction is estimated to be 55-60%. There are no focal wall motion abnormalities. Diastolic function could not be accurately assessed due to contradictory data. Right Ventricle: The right ventricle is normal in size and function. Atria: Both atria are normal in size. The interatrial septum grossly appears intact with no obvious evidence for an atrial septal defect. The atrial septum is aneurysmal. Mitral Valve: The mitral valve is normal in structure and function. There is mild mitral regurgitation. Aortic Valve: The aortic valve is normal in structure and function. There is no aortic valve stenosis. No aortic regurgitation is present. Tricuspid Valve: The tricuspid valve is normal in structure and function. There is mild to moderate tricuspid regurgitation. The right ventricular systolic pressure is estimated to be at least 40 mmHg based on an estimated right atrial pressure of 3 mm Hg. Pulmonic Valve: The pulmonic valve is normal in structure and function. There is mild pulmonic regurgitation. Great Vessels: The aortic root is normal size. The dimensions of the ascending aorta are normal. The IVC is of normal diameter and collapses greater than 50% with a sniff. This suggests a low right atrial pressure of 3 mm Hg. Pericardium/ Pleura There is no pericardial effusion. There is no pleural effusion. MMode/2D Measurements & Calculations LVIDd: 4.8 cm LVOT diam: 1.9 cm LVIDs: 3.2 cm Ao root diam: 2.7 cm FS: 32.9 % asc Aorta Diam: 2.9 cm IVSd: 0.72 cm LVPWd: 0.75 cm LV yanes. diameter/BSA (cm/m^2): 3.2 LV sys. diameter/BSA (cm/m^2): 2.1 LA A2 area: 16.9 cm2 RA long axis: 4.6 cm LA A4 area: 14.5 cm2 RA area: 13.5 cm2 LA length (vol): 4.8 cm RA vol: 34.2 ml LA vol: 43.8 ml RA : 22.9 ml/m2 LA vol index: 29.3 ml/m2 TAPSE: 2.5 cm Doppler Measurements & Calculations Ao V2 max: 137.6 cm/sec LVOT Max Jefferson: 118.5 cm/sec Ao V2 mean: 87.0 cm/sec LV V1 max P.6 mmHg Ao max P.6 mmHg LV V1 VTI: 18.8 cm Ao mean P.5 mmHg EUGENIA(I,D): 2.5 cm2 Ao V2 VTI: 21.2 cm EUGENIA(V,D): 2.4 cm2 sev ratio: 0.89 EUGENIA indexed to BSA (cm^2/m^2): 1.7 MV E max jefferson: 59.6 cm/sec TR max jefferson: 302.8 cm/sec MV A max jefferson: 86.5 cm/sec TR max P.7 mmHg MV E/A: 0.69 Med Peak E' Jefferson: 7.9 cm/sec E/E' med: 7.5 Lat Peak E' Jefferson: 9.3 cm/sec E/E' lat: 6.4 E/e' average: 7.0 MV dec time: 0.17 sec SV(LVOT): 52.4 ml Reading Physician:12:42 PM
--- NOTE | 2022-07-27 17:12 | DI.MRI.S_ITS ---
PROCEDURE: MR HEAD/BRAIN WO CON INDICATIONS: TIA TECHNIQUE: Non-contrast axial T1 spin echo, axial T2 fast spin echo, sagittal and axial FLAIR, coronal T2 fast spin echo, axial gradient echo, axial diffusion and ADC through the brain. COMPARISON: [facility], CT, CT STROKE, 07/27/2022, 14:15. [facility], CT, CT ANGIO HEAD AND NECK, 07/27/2022, 14:15. FINDINGS: Image quality: Excellent. CSF spaces: Ventricles appear symmetric in size and shape. Basal cisterns are patent. No extra-axial fluid collections. Brain: No intracranial bleeds or mass effects. There is cerebral volume loss for age. There are periventricular and deep white matter chronic small vessel ischemic changes. Brainstem appears normal. Diffusion-weighted images show no acute ischemic insults. 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 Normal intravascular flow voids are present. Skull and face: Calvarial bone marrow is normal in signal. Orbits are normal. Note is made of bilateral lens replacements. Sinuses: Sinuses and mastoids are clear. 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 Moderate leftward nasal septal deviation is seen. IMPRESSION: No findings of acute or subacute infarction can be seen. Additional findings: Remote left inferior cerebellar infarction Brain parenchymal volume loss Chronic small vessel ischemic change Right-sided ruben bullosa Moderate leftward nasal septal deviation Dictated by: Estiven Robertson M.D. on 07/27/2022 at 17:48 Approved by: Estiven Robertson M.D. on 07/27/2022 at 17:51
[2022-07-27 17:28] LABS: Cholesterol 176 mg/dL (140-199); HDL Cholesterol 73 mg/dL (40-60); LDL Cholesterol Calculated 80 mg/dL (<100); Magnesium 2.3 mg/dL (1.6-2.3); Triglycerides 113 mg/dL (35-150)
[2022-07-27 17:31] LABS: Hemoglobin A1C% w Est Avg Glu 5.8 % (4.0-6.0)
[2022-07-27 17:59] LABS: TSH w/ Reflex to FT4 1.42 uIU/mL (0.47-4.68)
--- NOTE | 2022-07-27 18:58 | P.HP_ITS ---
History of Present Illness History of Present Illness Date Patient Seen: 07/27/22 Chief complaint: Code Stroke Narrative: Valarie Saleh is a 76yo with PNH of COPD and diverticulitis who presents with 1 day of expressive aphasia and personality changes. History obtained from daughter as patient has trouble speaking. She says around noon yesterday on 07/26 she developed gradually progressive difficulty speaking and began acting not her normal self. She would not know how to do simple tasks. She locked her keys in her car and then started putting sticky notes up around the house. No obvious paranoia or anxiety. Family brought her in with concern for stroke. In the ED patient was afebrile and head CT was negative. WBC elevated at 14.5. UA not checked. Utox negative. Ethanol negative. Patient History Medical History COPD (chronic obstructive pulmonary disease) Diverticulitis Surgical History History of Status post colonoscopy (09/28/10) Status post hysterectomy Family & Social History Family History Mother Malignant neoplasm of female breast, unspecified laterality, unspecified site of breast Social History: household members family Prior Living Arrangements House Safety & Behavioral: Feels Safe in Current Yes Environment Been Physically Hurt or No Threatened By a Person Tobacco & Substance use: Tobacco type cigarettes Smoking Status Former smoker alcohol intake current alcohol intake frequency 0-2 drinks per day Substance Use Type does not use Meds Home Medications and Allergies Home Medications Medication Instructions Recorded Confirmed Type albuterol sulfate 90 mcg/actuation 2 puff INH Q4H PRN #2 inhalations 09/15/16 02/11/19 Rx aerosol inhaler (Ventolin HFA) tiotropium bromide 18 mcg capsule 1 puff INH DAILY ##0 09/14/17 02/11/19 History with inhalation device (Spiriva with HandiHaler) omeprazole 20 mg capsule,delayed 20 mg PO DAILY #90 caps 07/22/18 02/11/19 Rx release Nebulizer: Home Unit 1 ea miscellaneous DIRECTED 01/28/19 02/11/19 History Vitamin C 1 tab PO DAILY 01/28/19 02/11/19 History acetaminophen 325 mg tablet 325 mg PO BID 01/28/19 02/11/19 History fluticasone 250 mcg-salmeterol 50 1 puff inhalation BID 01/28/19 02/11/19 History mcg/dose blistr powdr for inhalation folic acid 1 mg tablet 1 mg PO DAILY 01/28/19 02/11/19 History hydroxychloroquine 200 mg tablet 200 mg PO DAILY 01/28/19 02/11/19 History naproxen 1 tab PO BID 01/28/19 02/11/19 History tramadol 50 mg tablet 50 mg PO BID PRN pain 01/28/19 02/11/19 History trazodone 50 mg tablet 50 mg PO BEDTIME 01/28/19 02/11/19 History vitamin E 1 cap PO DAILY 01/28/19 02/11/19 History Allergies Allergy/AdvReac Type Severity Reaction Status Date / Time Sulfa (Sulfonamide Allergy Severe rash Verified 07/27/22 14:27 Antibiotics) [SULFA (SULFONAMIDE ANTIBIOTICS)] hydrocodone [HYDROCODONE] AdvReac Mild itching Verified 07/27/22 14:27 methotrexate [METHOTREXATE] AdvReac Mild hair loss Verified 07/27/22 14:27 Review of Systems Review of Systems Narrative: All other systems reviewed with the patient and are negative unless otherwise stated. Exam Vital Signs (past 8 hours): - 07/27/22 14:22 07/27/22 14:27 07/27/22 14:27 Temperature Pulse Rate 92 H 95 H Respiratory Rate 25 H Blood Pressure 176/88 H Pulse Oximetry 94 94 Oxygen Flow Rate 07/27/22 14:30 07/27/22 14:30 07/27/22 14:45 Temperature Pulse Rate 91 H 90 Respiratory Rate 30 H 23 Blood Pressure 183/84 H Pulse Oximetry 93 94 Oxygen Flow Rate 07/27/22 15:00 07/27/22 15:00 07/27/22 15:15 Temperature Pulse Rate 91 H 92 H Respiratory Rate 26 H 27 H Blood Pressure 185/84 H Pulse Oximetry 94 94 Oxygen Flow Rate 07/27/22 15:30 07/27/22 15:45 07/27/22 16:00 Temperature Pulse Rate 104 H 92 H 86 Respiratory Rate Blood Pressure Pulse Oximetry 90 L 92 93 Oxygen Flow Rate 07/27/22 16:15 07/27/22 16:30 07/27/22 16:45 Temperature Pulse Rate 88 87 93 H Respiratory Rate Blood Pressure Pulse Oximetry 92 92 93 Oxygen Flow Rate 07/27/22 17:00 07/27/22 17:15 07/27/22 17:30 Temperature Pulse Rate 95 H 91 H 90 Respiratory Rate Blood Pressure Pulse Oximetry 93 93 93 Oxygen Flow Rate 07/27/22 18:00 Temperature 98.0 F Pulse Rate 93 H Respiratory Rate 16 Blood Pressure 176/98 H Pulse Oximetry 94 Oxygen Flow Rate 0 Oxygen Flow Rate 0 Narrative Exam Narrative: GEN: no acute distress, elderly female HEENT: moist mucous membranes, PERRL NECK: trachea midline, no JVD CV: regular rate and rhythm, no murmurs PULM: clear bilaterally ABD: soft, nontender, nondistended, no organomegaly EXT: warm and well perfused with no edema NEURO: having some difficulty speaking, no facial droop and strength intact in all extremities, CN 2-12 intact Objective Labs Result Diagrams: 07/27/22 14:10 07/27/22 14:10 Labs: Laboratory Results - last 24 hr 07/27/22 07/27/22 07/27/22 14:10 14:10 14:10 WBC 14.5 H RBC 5.27 H Hgb 13.7 Hct 42.2 MCV 80.2 MCH 25.9 L MCHC 32.3 RDW 13.8 Plt Count 450 H Neut % (Auto) 77.0 H Lymph % (Auto) 12.7 L [place] % (Auto) 9.1 Eos % (Auto) 0.2 L Baso % (Auto) 1.0 Neut # (Auto) 41825 H Lymph # (Auto) 1900 [place] # (Auto) 1300 H Eos # (Auto) 0 Baso # (Auto) 100 PT 11.6 INR 1.0 APTT 31 Sodium 142 Potassium 4.5 Chloride 100 Carbon Dioxide 29 BUN 24 H Creatinine 0.80 Estimated GFR > 60 BUN/Creatinine Ratio 30.0 H Glucose 97 Hemoglobin A1c Calcium 10.1 Magnesium Total Bilirubin 1.2 AST 29 ALT 35 H Alkaline Phosphatase 69 Total Creatine Kinase 57 CK-MB (CK-2) TNP CK-MB (CK-2) Rel Index TNP Troponin I < 0.012 Total Protein 8.5 H Albumin 4.8 Globulin 3.7 Albumin/Globulin Ratio 1.3 Triglycerides Cholesterol LDL Cholesterol, Calc HDL Cholesterol TSH Urine Color Urine Appearance Urine pH Ur Specific [place] Urine Protein Urine Glucose (UA) Urine Ketones Urine Occult Blood Urine Nitrate Urine Bilirubin Urine Urobilinogen Ur Leukocyte Esterase Urine RBC Urine WBC Ur Squamous Epith Cells Amorphous Sediment Urine Bacteria Hyaline Casts Urine Mucus Ur Culture Indicated? U Opiates 300ng/mL cut Ur Oxycodone Screen Urine Methadone Screen Ur Barbiturates Screen U Tricyclic Antidepress Ur Phencyclidine Scrn Ur Amphetamines Screen U Methamphetamines Scrn Ur MDMA Scrn (Ecstasy) U Benzodiazepines Scrn Urine Cocaine Screen U Marijuana (THC) Screen Ethyl Alcohol < 10 SARS-CoV-2 (PCR) 07/27/22 07/27/22 07/27/22 14:10 14:10 14:10 WBC RBC Hgb Hct MCV MCH MCHC RDW Plt Count Neut % (Auto) Lymph % (Auto) [place] % (Auto) Eos % (Auto) Baso % (Auto) Neut # (Auto) Lymph # (Auto) [place] # (Auto) Eos # (Auto) Baso # (Auto) PT INR APTT Sodium Potassium Chloride Carbon Dioxide BUN Creatinine Estimated GFR BUN/Creatinine Ratio Glucose Hemoglobin A1c 5.8 Calcium Magnesium 2.3 Total Bilirubin AST ALT Alkaline Phosphatase Total Creatine Kinase CK-MB (CK-2) CK-MB (CK-2) Rel Index Troponin I Total Protein Albumin Globulin Albumin/Globulin Ratio Triglycerides 113 Cholesterol 176 LDL Cholesterol, Calc 80 HDL Cholesterol 73 H TSH 1.42 Urine Color Urine Appearance Urine pH Ur Specific [place] Urine Protein Urine Glucose (UA) Urine Ketones Urine Occult Blood Urine Nitrate Urine Bilirubin Urine Urobilinogen Ur Leukocyte Esterase Urine RBC Urine WBC Ur Squamous Epith Cells Amorphous Sediment Urine Bacteria Hyaline Casts Urine Mucus Ur Culture Indicated? U Opiates 300ng/mL cut Ur Oxycodone Screen Urine Methadone Screen Ur Barbiturates Screen U Tricyclic Antidepress Ur Phencyclidine Scrn Ur Amphetamines Screen U Methamphetamines Scrn Ur MDMA Scrn (Ecstasy) U Benzodiazepines Scrn Urine Cocaine Screen U Marijuana (THC) Screen Ethyl Alcohol SARS-CoV-2 (PCR) 07/27/22 07/27/22 07/27/22 14:19 15:29 15:29 WBC RBC Hgb Hct MCV MCH MCHC RDW Plt Count Neut % (Auto) Lymph % (Auto) [place] % (Auto) Eos % (Auto) Baso % (Auto) Neut # (Auto) Lymph # (Auto) [place] # (Auto) Eos # (Auto) Baso # (Auto) PT INR APTT Sodium Potassium Chloride Carbon Dioxide BUN Creatinine Estimated GFR BUN/Creatinine Ratio Glucose Hemoglobin A1c Calcium Magnesium Total Bilirubin AST ALT Alkaline Phosphatase Total Creatine Kinase CK-MB (CK-2) CK-MB (CK-2) Rel Index Troponin I Total Protein Albumin Globulin Albumin/Globulin Ratio Triglycerides Cholesterol LDL Cholesterol, Calc HDL Cholesterol TSH Urine Color Yellow Urine Appearance Clear Urine pH 7.0 Ur Specific [place] 1.015 Urine Protein Trace H Urine Glucose (UA) Negative Urine Ketones 1+ H Urine Occult Blood Negative Urine Nitrate Negative Urine Bilirubin Negative Urine Urobilinogen 0.2 Ur Leukocyte Esterase Negative Urine RBC 0-1/hpf Urine WBC 0-1/hpf Ur Squamous Epith Cells None seen Amorphous Sediment 1+ Urine Bacteria Occasional (0-1) Hyaline Casts 5-10/lpf Urine Mucus 1+ H Ur Culture Indicated? Cult not indicated U Opiates 300ng/mL cut Negative Ur Oxycodone Screen Negative Urine Methadone Screen Negative Ur Barbiturates Screen Negative U Tricyclic Antidepress Negative Ur Phencyclidine Scrn Negative Ur Amphetamines Screen Negative U Methamphetamines Scrn Negative Ur MDMA Scrn (Ecstasy) Negative U Benzodiazepines Scrn Negative Urine Cocaine Screen Negative U Marijuana (THC) Screen Negative Ethyl Alcohol SARS-CoV-2 (PCR) Negative Assessment & Plan Assessment & Plan narrative: # possible acute stroke vs TIA -patient presenting with expressive aphasia and progressive personality change per family, on exam with stuttering speech but alert and oriented x4 and no deficits on exam -CT and CTA head neg -MR brain negative -start ASA 81mg daily -start lipitor 40mg nightly -check A1c, lipids -tele, check echo -TSH normal -allow permissive HTN -check UA for UTI # leukocytosis -WBC 14.5 -check UA and procal -monitor for infection Code status is full code. COVID negative. DVT prophylaxis with Lovenox. Proxy is daughter Phoebe. I have reviewed home meds and used all available resources to reconcile the home meds. This patient will be admitted as observation and will require less than 2 midnights of hospital time to treat TIA. Time Spent With Patient Critical Care time: I spent a total of [] minutes of critical care time on this patient's care today; this time is exclusive of procedural time. Quality VTE Deep Vein Thrombosis/Pulmonary Embolism Present on Admission: No
[2022-07-27] MEDS: ATORVASTATIN 20 MG TABLET 40 MG PO (20:39)
[2022-07-27] MEDS: ASPIRIN 81 MG CHEW TAB 324 MG PO (21:03)
[2022-07-27] MEDS: ACETAMINOPHEN 325 MG TABLET 650 MG PO (21:53)
[2022-07-27 22:54] LABS: Appearance Urine UA CLEAR; Bilirubin Urine UA NEGATIVE (NEGATIVE); Color Urine UA YELLOW; Glucose Urine UA NEGATIVE (Negative); Ketones Urine UA 1+ (NEGATIVE); Leukocyte Esterase Urine UA TRACE (NEGATIVE); Nitrite Urine UA NEGATIVE (Negative); Occult Blood Urine UA TRACE-LYSED (Negative); Protein Urine UA TRACE (Negative); Specific Gravity Urine UA 1.015 (1.000-1.035); Urobilinogen Urine UA 0.2 E.U./dL (0.2)
[2022-07-27 22:56] LABS: pH Urine UA 6.5 (4.5-8.0)
[2022-07-27 23:17] LABS: Bacteria Urine None Seen; Culture Indicated Urine Specimen Cultured; RBC Urine 0-1/HPF (0-5/HPF); Squamous Epithelial Cell Urine 0-1 /HPF (0-5/HPF); WBC Urine 0-1/HPF (0-5/HPF)
[2022-07-28 04:50] VITALS: BP 140/81; PULSE 90; RESP 17; TEMP 36.4; O2SAT 92
[2022-07-28 05:32] LABS: Add Manual Diff / Slide Review NO; Basophils Absolute Auto 0 /uL (0-100); Basophils Percent Auto 0.5 % (0-2); Eosinophils Absolute Auto 100 /uL (0-450); Eosinophils Percent Auto 0.8 % (2-4); Hematocrit 35.5 % (36-46); Hemoglobin 11.4 g/dL (12.0-16.0); Lymphocytes Absolute Auto 1900 /uL (1100-4500); Lymphocytes Percent Auto 19.6 % (25-40); Mean Corpuscular HGB Conc 32.2 % (30-36); Mean Corpuscular Hemoglobin 25.8 PG (26-34); Mean Corpuscular Volume 80.2 fL (80-100); Monocytes Absolute Auto 1000 /uL (0-900); Monocytes Percent Auto 10.1 % (3-14); Neutrophils Absolute Auto 6700 /uL (1500-7000); Platelet Count 380 X10^3/uL (150-400); Red Blood Cell Count 4.42 X10^6/uL (4.0-5.2); Red Cell Distribution Width 13.8 % (11.6-14.8); White Blood Cell Count 9.7 X10^3/uL (4.5-11.0)
[2022-07-28 05:34] LABS: HEMOLYSIS < 15 (0-50); Potassium 3.7 mmol/L (3.4-5.1)
[2022-07-28 05:35] LABS: Blood Urea Nitrogen 20 mg/dL (7-17); Calcium 8.7 mg/dL (8.4-10.2); Carbon Dioxide 25 mmol/L (22-32); Chloride 99 mmol/L (98-107); Estimated Glomerular Filt Rate > 60 mL/min (>60); Glucose 84 mg/dL (80-110); Sodium 132 mmol/L (137-145)
[2022-07-28 05:53] LABS: Procalcitonin 0.05 ng/mL (<0.5)
[2022-07-28 08:05] VITALS: BP 134/83; PULSE 98; RESP 20; TEMP 36.8; O2SAT 93
[2022-07-28] MEDS: ENOXAPARIN 40 MG/0.4 ML SYRINGE SUBCUT (09:02)
[2022-07-28] MEDS: ASPIRIN EC 81 MG TABLET PO (09:02)
[2022-07-28 12:08] VITALS: BP 131/86; PULSE 95; RESP 18; TEMP 36.4; O2SAT 94
--- NOTE | 2022-07-28 12:37 | CM.DANOTE ---
Initial DCP Assessment Note Pt is a 76 yo female, resident of [place], presents with one day hx of expressive aphasia and personality changes per family MRI neg for stroke, no residual deficits, patient being discharged home w/family and close outpatient f/u for TIA PCP: Anahi Malone Payer: [facility] No barriers identified at this time to patient's safe discharge home w/family to assist; close outpatient f/u recommended. GONZÁLEZ Meade Discharge Planning/Care Management CM Discharge Assessment Start: 07/28/22 12:33 Freq: Status: Active Protocol: Document 07/28/22 12:34 CONSTANCE (Rec: 07/28/22 12:37 CONSTANCE [id number]) Discharge Planning Assessment Assigned Bladder Trimmer GONZÁLEZ Jauregui DPOA/Assigned Designee Name Phoebe Saleh dtr Contact Information [phone] Advance Directives? Yes: POLST Advance Directives on File No History Provided By Patient,Family Member,Medical Record Prior Living Arrangements House Household Members family Type of transportation used prior to Drives own vehicle admit Independent with ADL's Yes Is patient alert and oriented? Yes Patient/Family Preference Home with Home Health Barriers to Discharge No Comment Home w/supportive family and HH services is expected, awaiting eval from PT/OT Discharge Plan Home Transportation Arrangement Dtr likely can provide transport home when stable if safe for home. Additional Comment Waiting for futher PT/OT
--- NOTE | 2022-07-28 12:59 | P.DS_ITS ---
History of Present Illness History of Present Illness Date Patient Seen: 07/28/22 Chief complaint: Code Stroke Narrative: Valarie Saleh is a 76yo with PNH of COPD and diverticulitis who presents with 1 day of expressive aphasia and personality changes. History obtained from daughter as patient has trouble speaking. She says around noon yesterday on 07/26 she developed gradually progressive difficulty speaking and began acting not her normal self. She would not know how to do simple tasks. She locked her keys in her car and then started putting sticky notes up around the house. No obvious paranoia or anxiety. Family brought her in with concern for stroke. In the ED patient was afebrile and head CT was negative. WBC elevated at 14.5. UA not checked. Utox negative. Ethanol negative. Discharge Providers Provider Date of admission: 07/27/22 17:03 Discharge Date: 07/28/22 Primary care physician: THANH Ge Consults: 07/27/22 17:11 Consult to Discharge Planning Routine Comment: Discharge provider: Garrett Gan DO Summary Time Spent with Patient Time spent: Greater than 30 minutes Exam Vital Signs (past 8 hours): Fraction of Inspired Oxygen 28 SaO2/FiO2 Ratio 335 Oxygen Delivery Method Room Air Oxygen Flow Rate 0 Narrative Exam Narrative: GEN: no acute distress, elderly female HEENT: moist mucous membranes, PERRL NECK: trachea midline, no JVD CV: regular rate and rhythm, no murmurs PULM: clear bilaterally ABD: soft, nontender, nondistended, no organomegaly EXT: warm and well perfused with no edema NEURO: having some difficulty speaking, no facial droop and strength intact in all extremities, CN 2-12 intact Objective Labs Result Diagrams: 07/28/22 04:44 07/28/22 04:44 [facility] Medical History COPD (chronic obstructive pulmonary disease) Diverticulitis Surgical History History of Status post colonoscopy (09/28/10) Status post hysterectomy Family History Mother Malignant neoplasm of female breast, unspecified laterality, unspecified site of breast Social History household members: family occupational status: employed Smoking Status: Former smoker Tobacco: How many years used: 40 alcohol intake: current substance use type: does not use Discharge Plan Discharge Plan Patient Disposition: Home Provider Discharge Comment: You were admitted for trouble speaking and some changes in behavior which was concerning for a stroke. Your head scans did not show any evidence of stroke and your heart echo looked good other than a small leak in one of the valves which isn't concerning. You likely had a TIA or ministroke so we have placed you on a baby aspirin daily as well as a statin for cholesterol control. Please speak with your PCP about a possible heart monitor to look for atrial fibrillation as well as check your blood pressure. Discharge orders & Medications Prescriptions: New aspirin 81 mg Tablet,Delayed Release (Dr/Ec) 81 mg PO DAILY Qty: 90 0RF atorvastatin [Lipitor] 40 mg tablet 40 mg PO BEDTIME Qty: 90 0RF Continued albuterol sulfate [Ventolin HFA] 90 MCG/PUFF HFA aerosol inhaler 2 puff INH Q4H PRNQty: 2 12RF omeprazole 20 mg capsule,delayed release(DR/EC) 20 mg PO DAILY Qty: 90 0RF Rx Instructions: swallow whole; do not crush, chew, dissolve, cut, break acetaminophen 325 mg Tablet 325 mg PO BID Label Comments: patient states takes with Naproxen bid between Tramadol doses folic acid 1 mg tablet 1 mg PO DAILY Label Comments: take 1 tablet by mouth once daily hydroxychloroquine 200 mg tablet 200 mg PO DAILY Vitamin C 1 tab PO DAILY vitamin E 1 cap PO DAILY trazodone 50 mg tablet 50 mg PO BEDTIME tramadol 50 MG tablet 50 mg PO DAILY Nebulizer: Home Unit 1 ea miscellaneous DIRECTED albuterol sulfate 2.5 mg /3 mL (0.083 %) solution for nebulization 2.5 mg inhalation PRN PRN (Reason: Respiratory Distress) Trelegy Ellipta 100-62.5-25 mcg blister with device 100 inh INHALATION DAILY Follow up/Referrals: Anahi Malone ARNP [Primary Care Provider] - 2 Weeks ( *Appt on July at 9:15am with Anahi LAW [phone]) Visit Report/Discharge Packet Instructions: Tricuspid Valve Disease, Transient Ischemic Attack, DI for Transient Ischemic Attack Discharge Data Primary Care Provider: Anahi Malone Attending Provider: Garrett Gan Quality VTE Deep Vein Thrombosis/Pulmonary Embolism Present on Admission: No
--- NOTE | 2022-07-28 14:06 | PC.NURSE ---
Addendum entered by Jose Haile R.N. 07/28/22 14:41: Left unit via WC at approx 1435. Son here to take her home. Taken by this policy writer. Pt remains steady on her feet. Original Note: Day shift: Paperwork signed and all question answered. Pt will be taken to car via WC. Waiting for Pt's Son to return at this time. VS WNL. CMS intact. No problems with speaking today. Will amend this note when Pt leaves unit.
== END 2022-07-28 14:43 | disposition home or self-care (01) ==
LOC: ED 14:25 → AC 17:04
PROVIDERS: Admitting Provider Student in an Organized Health Care Education/Training Program; Emergency Provider Emergency Medicine; PCP Internal Medicine; Referring Provider Emergency Medicine; Visit Provider Student in an Organized Health Care Education/Training Program
DX: R47.01 Aphasia (principal); R29.702 NIHSS score 2; J44.9 Chronic obstructive pulmonary disease, unspecified; F98.5 Adult onset fluency disorder; D72.829 Elevated white blood cell count, unspecified; F91.9 Conduct disorder, unspecified; Z87.891 Personal history of nicotine dependence; Z20.822 Contact with and (suspected) exposure to COVID-19
CPT/HCPCS: 36415; 70450; 70496; 70498; 70551; 80048; 80053; 80061; 80305; 80320; 81001; 82550; 82962; 83036; 83735; 84145; 84443; 84484; 85025; 85610; 85730; 87086; 87635; 93005; 93010; 93306; 94760; 96372; 99285; C9803; G0378; J1650; Q9967

== ENCOUNTER 2022-10-28 14:26 | Emergency (ER) | payer MEDICARE, SELFPAY ==
[2022-07-27 18:46] VITALS: BMI 20.5
[2022-10-28 14:46] VITALS: BP 197/93; PULSE 78; RESP 18; TEMP 36.6; O2SAT 96; BMI 21.7
--- NOTE | 2022-10-28 15:00 | DI.RAD.S_ITS ---
PROCEDURE: XR HAND RT MIN 3V INDICATIONS: right had injury after fall TECHNIQUE: 3 views of the hand(s) acquired. COMPARISON: None. FINDINGS: Bones: Fractures at the base of the 4th and 5th proximal phalanges and distal 5th metacarpal head/neck are seen which are mildly displaced. Soft tissues: No suspicious soft tissue calcifications. IMPRESSION: Mildly displaced fractures of the base of the 4th and 5th proximal phalanges and 5th metacarpal head/neck. Dictated by: Eugene Wilson M.D. on 10/28/2022 at 15:01 Approved by: Eugene Wilson M.D. on 10/28/2022 at 15:02
--- NOTE | 2022-10-28 15:00 | DI.CT.S_ITS ---
PROCEDURE: CT FACIAL BONES WO CON INDICATIONS: fall with nose and mouth injury TECHNIQUE: Noncontrast 2.5 mm thick axial images acquired from the mandible through the frontal sinuses, with coronal and sagittal reformatting. For radiation dose reduction, the following was used: automated exposure control, adjustment of mA and/or kV according to patient size. COMPARISON: None. FINDINGS: Image quality: Excellent. Bones and teeth: Orbital willson are intact. Sinus willson show no fracture or deformity. Nasal bones and septum are intact. Visualized portions of the mandible demonstrate no fractures or subluxation. Zygomatic arches are intact. Pterygoid plates are intact. Visualized portions of the skull base and auditory canals are intact. Sinuses: Paranasal sinuses are aerated, without fluid levels, mucosal thickening, or mucoceles. Mastoid air cells are aerated. The nasal septum is deviated to the left. 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 Soft tissues: No edema, masses, or fluid collections. No enlarged lymph nodes. No soft tissue lacerations or debris. Vascular: Visualized vascular structures appear normal in the absence of contrast. Bony vascular foramina and canals are intact. IMPRESSION: No acute traumatic abnormality of the facial bones. Dictated by: Eugene Wilson M.D. on 10/28/2022 at 15:03 Approved by: Eugene Wilson M.D. on 10/28/2022 at 15:05
--- NOTE | 2022-10-28 15:00 | ED.GENADULT ---
HPI - General Adult General Chief complaint: Trauma Stated complaint: fall hit face r hand w deformity Time Seen by Provider: 10/28/22 14:57 Source: patient and EMS Mode of arrival: EMS History of Present Illness HPI narrative: Patient is a 77-year-old female. Not on anticoagulation who is here for evaluation of injuries that she sustained when she tripped and fell. She sustained an injury to her right hand but also hit her face on the ground. There was no loss of consciousness. No neck pain. It bleeding from her right hand and also her face. She arrived not on a backboard not in a cervical collar. She reports discomfort to her face and also her right hand with inability to extend the ring and little finger on her right hand. Related Data Home Medications Medication Instructions Recorded Confirmed Nebulizer: Home Unit 1 ea miscellaneous DIRECTED 01/28/19 07/27/22 Vitamin C 1 tab PO DAILY 01/28/19 07/27/22 acetaminophen 325 mg tablet 325 mg PO BID 01/28/19 07/27/22 folic acid 1 mg tablet 1 mg PO DAILY 01/28/19 07/28/22 hydroxychloroquine 200 mg tablet 200 mg PO DAILY 01/28/19 07/27/22 tramadol 50 mg tablet 50 mg PO DAILY 01/28/19 07/28/22 trazodone 50 mg tablet 50 mg PO BEDTIME sleep 01/28/19 07/28/22 vitamin E 1 cap PO DAILY 01/28/19 07/27/22 albuterol sulfate 2.5 mg/3 mL 2.5 mg inhalation PRN PRN 07/28/22 07/28/22 (0.083 %) solution for nebulization Respiratory Distress fluticasone fur. 100 mcg-umeclid 100 inh inhalation DAILY 07/28/22 07/28/22 62.5 mcg-vilant 25 mcg inhalat.powder (Trelegy Ellipta) Previous Rx's Medication Instructions Recorded albuterol sulfate 90 mcg/actuation 2 puff INH Q4H PRN #2 inhalations 09/15/16 aerosol inhaler (Ventolin HFA) omeprazole 20 mg capsule,delayed 20 mg PO DAILY #90 caps 07/22/18 release aspirin 81 mg tablet,delayed 81 mg PO DAILY #90 tabs 07/28/22 release atorvastatin 40 mg tablet (Lipitor) 40 mg PO BEDTIME #90 tabs 07/28/22 Allergies Allergy/AdvReac Type Severity Reaction Status Date / Time Sulfa (Sulfonamide Allergy Severe rash Verified 10/28/22 14:45 Antibiotics) [SULFA (SULFONAMIDE ANTIBIOTICS)] hydrocodone [HYDROCODONE] AdvReac Mild itching Verified 10/28/22 14:45 methotrexate [METHOTREXATE] AdvReac Mild hair loss Verified 10/28/22 14:45 Review of Systems Constitutional Constitutional: Reports system reviewed and no additional complaints, except as documented Musculoskeletal Musculoskeletal: Reports system reviewed and no additional complaints, except as documented Integumentary/Breasts Skin/Breast: Reports system reviewed and no additional complaints, except as documented Neurologic Neurologic: Reports system reviewed and no additional complaints, except as documented Hematologic/Lymphatic On Anticoagulants: No Patient History Medical History COPD (chronic obstructive pulmonary disease) Diverticulitis Surgical History History of Status post colonoscopy (09/28/10) Status post hysterectomy Family History Mother Malignant neoplasm of female breast, unspecified laterality, unspecified site of breast Social History household members: family occupational status: employed Smoking Status: Former smoker Tobacco: How many years used: 40 alcohol intake: current substance use type: does not use Smoking Status: Former smoker alcohol intake frequency: 0-2 drinks per day Substance Use Type: does not use Exam Initial Vital Signs Initial Vital Signs: Vital Signs Temperature 97.8 F 10/28/22 14:46 Pulse Rate 78 10/28/22 14:46 Respiratory Rate 18 10/28/22 14:46 Blood Pressure 197/93 H 10/28/22 14:46 Pulse Oximetry 96 10/28/22 14:46 Oxygen Delivery Method Room Air 10/28/22 14:46 Const General: cooperative, comfortable and No ill appearing HENMT Nose: other (Bruising to bridge of nose) Mouth: tongue normal and lip abnormal (Cut to the buccal mucosa of upper lip) Teeth and gingiva: dentition normal Resp Effort & Inspection: normal respiratory effort Cardio Rate: regular rate Skin Other: Superficial lacerations to the bridge of her nose in her upper lip and also to the back of her right hand Neuro General: patient alert, patient awake, patient oriented x3 and moves all extremities Extrem Other: Bruising to the dorsum of the right hand specifically over the middle ring little fingers. Patient has inability to extend at the PIP joint that the ring and little finger of the right hand. Right wrist and right elbow and right shoulder unremarkable hips are unremarkable. Knees and ankles unremarkable. Procedures Laceration Repair Laceration 1: Site: hand Side (If applicable): right Size (cm): 1 Description: linear Depth: simple, single layer Local Anesthetic: lidocaine 1% Amount of anesthesia used (mL): 1 Pre-repair: wound explored and deep structures intact Skin layer closed with: nylon Skin layer suture size: 5-0 Number of sutures: 3 Technique: simple, interrupted Nerve Block Nerve Block 1: Time out performed: Yes Local Anesthetic: lidocaine 1% Amount of anesthesia used (mL): 3 Side: right Nerve Blocks: digital Patient Tolerated Procedure: Well Complications: none Orthopedic Splinting/Casting Injury #1: Side: right Upper Extremity Injury Location: hand Upper Extremity Immobilizer: ulnar gutter Post splinting neuro exam: intact Post splinting vascular exam: intact Placed by: Provider Scores GCS Willis coma scale eye opening: Spontaneous Willis coma scale verbal response: Orientated Kirkwood coma scale motor response: Obey commands Kirkwood coma scale total score: 15 Nexus Score for C-Spine Focal Neurologic deficit present: No Midline spinal tenderness present: No Altered level of conciousness present: No Intoxication present: No Distracting Injury Present: No Nexus Criteria for C-spine: 0 Course Orders Ordered: ED Orders 10/28/22 15:00 CT facial bones wo con Stat XR hand RT min 3V Stat Discontinued Medications Oxycodone/Acetaminophen (Oxycodone/Acetaminophen 5/325 Tablet) 1 tab PO NOW ONE Stop: 10/28/22 16:13 Last Admin: 10/28/22 16:19 Dose: 1 tab Documented By: NR Vital Signs Vital signs: Vital Signs - 8 hr 10/28/22 14:46 Temperature 97.8 F Pulse Rate 78 Respiratory Rate 18 Blood Pressure 197/93 H Pulse Oximetry 96 Oxygen Delivery Method Room Air Medical Decision Making Imaging Data Extremity x-ray #1: Radiologist's Impression: PROCEDURE:? XR HAND RT MIN 3V ? INDICATIONS:? right had injury after fall ? TECHNIQUE:? 3 views of the hand(s) acquired.? ? COMPARISON:? None. ? FINDINGS:? ? Bones:? Fractures at the base of the 4th and 5th proximal phalanges and distal 5th metacarpal head/neck are seen which are mildly displaced. ? Soft tissues:? No suspicious soft tissue calcifications.? ? ? IMPRESSION:? Mildly displaced fractures of the base of the 4th and 5th proximal phalanges and 5th metacarpal head/neck. face CT: Radiologist's Impression: PROCEDURE:? CT FACIAL BONES WO CON ? INDICATIONS:? fall with nose and mouth injury ? TECHNIQUE:? Noncontrast 2.5 mm thick axial images acquired from the mandible through the frontal sinuses, with coronal and sagittal reformatting.? For radiation dose reduction, the following was used:? automated exposure control, adjustment of mA and/or kV according to patient size.? ? COMPARISON:? None. ? FINDINGS:? Image quality:? Excellent.? ? Bones and teeth:? Orbital willson are intact.? Sinus willson show no fracture or deformity.? Nasal bones and septum are intact.? Visualized portions of the mandible demonstrate no fractures or subluxation.? Zygomatic arches are intact.? Pterygoid plates are intact.? Visualized portions of the skull base and auditory canals are intact.? ? Sinuses:? Paranasal sinuses are aerated, without fluid levels, mucosal thickening, or mucoceles.? Mastoid air cells are aerated.? The nasal septum is deviated to the left.? 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 ? Soft tissues:? No edema, masses, or fluid collections.? No enlarged lymph nodes.? No soft tissue lacerations or debris.? ? Vascular:? Visualized vascular structures appear normal in the absence of contrast.? Bony vascular foramina and canals are intact.? ? IMPRESSION:? No acute traumatic abnormality of the facial bones. MDM Narrative Medical decision making narrative: CT scan of the face shows no acute fracture. Cervical spine was cleared by nexus criteria. She does have abrasions on the face that we know specific intervention other than cleaning here in the emergency department. She does have fractures to the ring and little finger on her right hand. There is a small laceration that is not over the area of any fracture. Placed the patient in an ulnar gutter splint after digital block. This was a mechanical fall. Will discharge patient home with instructions to follow-up with orthopedics. She does have tramadol that she takes at home on a regular basis for discomfort. She was given return precautions. She expressed understanding and agreement. Discharge Plan Departure Patient Disposition: Home Clinical Impression: Hand fracture, right, Laceration of right hand, Abrasion of face Instructions: How to Take Care of Your Splint Activity Restrictions/Additional Instructions: The splint that was placed today does need to be treated like a cast. You need to keep it on and keep it clean keep it dry. Recommend you contact the orthopedic doctors at the number provided below for follow-up. Return to the emergency department for any new or worsening symptoms. Prescriptions: No Action albuterol sulfate [Ventolin HFA] 90 MCG/PUFF HFA aerosol inhaler 2 puff INH Q4H PRNQty: 2 12RF omeprazole 20 mg capsule,delayed release(DR/EC) 20 mg PO DAILY Qty: 90 0RF Rx Instructions: swallow whole; do not crush, chew, dissolve, cut, break acetaminophen 325 mg Tablet 325 mg PO BID Patient Comments: patient states takes with Naproxen bid between Tramadol doses folic acid 1 mg tablet 1 mg PO DAILY Patient Comments: take 1 tablet by mouth once daily hydroxychloroquine 200 mg tablet 200 mg PO DAILY Vitamin C 1 tab PO DAILY vitamin E 1 cap PO DAILY trazodone 50 mg tablet 50 mg PO BEDTIME tramadol 50 MG tablet 50 mg PO DAILY Nebulizer: Home Unit 1 ea miscellaneous DIRECTED albuterol sulfate 2.5 mg /3 mL (0.083 %) solution for nebulization 2.5 mg inhalation PRN PRN (Reason: Respiratory Distress) Trelegy Ellipta 100-62.5-25 mcg blister with device 100 inh INHALATION DAILY aspirin 81 mg Tablet,Delayed Release (Dr/Ec) 81 mg PO DAILY Qty: 90 0RF atorvastatin [Lipitor] 40 mg tablet 40 mg PO BEDTIME Qty: 90 0RF Referrals: Anahi Malone ARNP [Primary Care Provider] - Rosalva Castillo MD [Physician] - Stand Alone Forms: Patient Portal/API
[2022-10-28] MEDS: OXYCODONE/ACETAMINOPHEN 5/325 TABLET 1 TAB PO (16:19)
--- NOTE | 2022-10-28 17:39 | PC.NURSE ---
face cleaned with wash cloth. minor scrapes present. hand washed with running water. MD notified and 3 sutures applied to laceration between middle finger and ring finger. pt tolerated procedure well. MD used xylocaine 1% during procedure. then xeroform applied to fingers and all abrasions on hand, wrapped fingers with 2 gauze and undercast padding used for forearm. 4 orthoglass applied and wrapped with 3 and 2 ritchie wrap
[2022-10-28 17:56] VITALS: BP 164/79; PULSE 74; RESP 16; O2SAT 96
--- NOTE | 2022-10-28 19:19 | PC.NURSE ---
Patient called the department with concerns of bleeding on ritchie wrap. Advised patient that could not give medical advice over the phone but reiterated that she should elevate the extremity, ice, and reinforce the dressing and to return should she continue to have concerns or the bleeding increases.
== END 2022-10-28 18:12 | disposition home or self-care (01) ==
PROVIDERS: Emergency Provider Emergency Medicine; PCP Internal Medicine
DX: S62.91XA Unspecified fracture of right hand, initial encounter for closed fracture (principal); S61.411A Laceration without foreign body of right hand, initial encounter; S00.81XA Abrasion of other part of head, initial encounter; W18.30XA Fall on same level, unspecified, initial encounter
CPT/HCPCS: 12001; 29125; 70486; 73130; 99284

== ENCOUNTER → 2023-08-09 15:35 | Outpatient (CLI) | payer MEDICARE, SELFPAY ==
[2022-07-27 18:46] VITALS: BMI 20.5
--- NOTE | 2023-08-09 | DI.RAD.S_ITS ---
P the ROCEDURE: XR RIBS RT MIN 3V W CXR 1V INDICATIONS: RIB PAIN ON RIGHT SIDE TECHNIQUE: 3 views of the right ribs were acquired, along with a single view chest. COMPARISON: None. FINDINGS: Surgical changes and devices: None. Bones and chest wall: No fractures or dislocations. No suspicious bony lesions. Overlying soft tissues appear unremarkable. Degenerative changes of the spine. The the Lungs and pleura: No pleural effusions or pneumothorax. Linear atelectasis/scar in the right lung base. Lungs are otherwise clear. Mediastinum: Mediastinal contours appear normal. Heart size is normal. Aortic arch is calcified, indicating atherosclerosis. IMPRESSION: No displaced rib fracture or pneumothorax. Dictated by: Yocasta Gallo M.D. on 08/09/2023 at 18:31 Approved by: Yocasta Gallo M.D. on 08/09/2023 at 18:33
== END ==
PROVIDERS: PCP Internal Medicine; Referring Provider Registered Nurse; Visit Provider Registered Nurse
DX: R07.81 Pleurodynia (principal)
CPT/HCPCS: 71101

== ENCOUNTER → 2023-09-20 | Outpatient (CLI) | payer MEDICARE, SELFPAY ==
[2022-07-27 18:46] VITALS: BMI 20.5
--- NOTE | 2023-09-20 13:58 | DI.RAD.S_ITS ---
Bone Density Report Name: KELY HURT Age: 78 Sex: Female Ethnicity: White Date of : 1945 Indication: postmenopausal osteoporosis; monitoring treatment; prior fracture; Referring Provider: AMADOR COOPER Study: Bone densitometry was performed. Exam Date: September 20, 2023 Accession number: [id number] Bone Density: Region BMD T-score Z-score Classification AP Spine(L1, L2) 1.027 0.4 2.8 Normal Femoral Neck (Left) 0.564 -2.6 -0.4 Osteoporosis Total Hip (Left) 0.575 -3.0 -1.2 Osteoporosis Femoral Neck (Right) 0.598 -2.3 -0.1 Osteopenia Total Hip (Right) 0.586 -2.9 -1.1 Osteoporosis Total Hip Mean 0.581 -3.0 -1.2 Osteoporosis World Health Organization criteria for BMD impression classify patients as: Normal (T-score at or above -1.0), Osteopenia (T-score between -1.0 and -2.5), or Osteoporosis (T-score at or below -2.5). 10-year Fracture Risk: FRAX not reported because: Some T-score for Spine Total or Hip Total or Femoral Neck at or below -2.5 Prior hip or vertebral fracture Treated for osteoporosis Previous Exams: -- Region Exam Age BMD T-score BMD Change BMD Change Date g/cm2 vs Baseline vs Previous -- AP Spine (L1-L2) 09/20/2023 78 1.027 0.4 0.224 (27.9%)# 0.016 (1.6%) 04/25/2022 76 1.012 0.3 0.208 (25.9%)# 0.125 (14.2%)# 03/18/2020 74 0.886 -0.8 0.083 (10.3%)* 0.053 (6.3%)* 07/14/2016 70 0.834 -1.3 0.030 (3.8%)* 0.053 (6.8%)* 03/04/2013 67 0.780 -1.8 -0.023 (-2.9%)* -0.023 (-2.9%)* 04/07/2004 58 0.803 -1.6 Total Hip(Left) 09/20/2023 78 0.575 -3.0 -0.069 (-10.7%)# 0.029 (5.4%)# 04/25/2022 76 0.545 -3.3 -0.098 (-15.3%)# -0.007 (-1.3%)# 03/18/2020 74 0.552 -3.2 -0.091 (-14.2%)* -0.014 (-2.5%) 07/14/2016 70 0.567 -3.1 -0.077 (-12.0%)* -0.049 (-7.9%)* 03/04/2013 67 0.616 -2.7 -0.028 (-4.4%)* -0.028 (-4.4%)* 04/07/2004 58 0.644 -2.4 Total Hip(Right) 09/20/2023 78 0.586 -2.9 -0.070 (-10.7%)# -0.016 (-2.7%)# 04/25/2022 76 0.602 -2.8 -0.054 (-8.2%)# 0.059 (10.9%)# 03/18/2020 74 0.543 -3.3 -0.113 (-17.2%)* -0.008 (-1.5%) 07/14/2016 70 0.551 -3.2 -0.105 (-16.0%)* -0.063 (-10.3%)* 03/04/2013 67 0.614 -2.7 -0.042 (-6.4%)* -0.042 (-6.4%)* 04/07/2004 58 0.656 -2.3 -- *Denotes significance at 95% confidence level, LSC for AP Spine = 0.022 g/cm2, LSC for Total Hip = 0.027 g/cm2 Rate of change results reflect vertebral levels common to all scans # Denotes dissimilar scan types or analysis methods Impression: The patient has established osteoporosis, based on the Left Total Hip T-score and the existence of a prior fracture. The patient has risk factors, including: previous fracture. No significant bone loss was observed. Discussion: PATIENT UNDER TREATMENT WITH NO SIGNIFICANT BMD LOSS SINCE LAST EXAM. In an untreated patient, BMD typically declines with age. A lack of decline or gain is usually a sign that treatment is efficacious and fracture risk is reduced. It is important to ask patients whether they are taking their medications and to encourage continued and appropriate compliance with their osteoporosis therapies to reduce fracture risk. It is also important to review their risk factors and encourage appropriate calcium and vitamin D intakes, exercise, fall prevention and other lifestyle measures. Follow-Up: Consider a repeat BMD and Vertebral Fracture Assessment (VFA) exam in 2 years or sooner if medically necessary, to reassess this patient's status. Reported by: JOHN ZAMAN M.D. on 09/20/2023 2:26:00 PM.
== END ==
LOC: RAD 13:57
PROVIDERS: PCP Internal Medicine; Referring Provider Internal Medicine; Visit Provider Internal Medicine
DX: M81.0 Age-related osteoporosis without current pathological fracture (principal); Z78.0 Asymptomatic menopausal state
CPT/HCPCS: 77080

== ENCOUNTER 2023-10-03 12:46 | Emergency (ER) | payer MEDICARE, SELFPAY ==
[2022-07-27 18:46] VITALS: BMI 20.5
[2023-10-03 12:50] VITALS: BP 151/67; PULSE 73; RESP 16; TEMP 36.3; O2SAT 97; BMI 23.6
[2023-10-03 13:28] LABS: Add Manual Diff / Slide Review NO; Basophils Absolute Auto 100 /uL (0-100); Basophils Percent Auto 0.8 % (0-2); Eosinophils Absolute Auto 100 /uL (0-450); Eosinophils Percent Auto 1.2 % (2-4); Hematocrit 36.2 % (36-46); Lymphocytes Absolute Auto 1400 /uL (1100-4500); Lymphocytes Percent Auto 15.8 % (25-40); Mean Corpuscular Hemoglobin 26.7 PG (26-34); Mean Corpuscular Volume 80.9 fL (80-100); Monocytes Absolute Auto 900 /uL (0-900); Monocytes Percent Auto 9.6 % (3-14); Neutrophils Absolute Auto 6400 /uL (1500-7000); Neutrophils Percent Auto 72.6 % (50-75); Platelet Count 228 X10^3/uL (150-400); Red Blood Cell Count 4.47 X10^6/uL (4.0-5.2); Red Cell Distribution Width 14.1 % (11.6-14.8); White Blood Cell Count 8.9 X10^3/uL (4.5-11.0)
[2023-10-03 13:48] LABS: Alanine Aminotransferase 20 IU/L (<35); Albumin 4.4 g/dL (3.5-5.0); Albumin Globulin Ratio 1.2 (1.0-2.8); Alkaline Phosphatase 67 U/L (38-126); Aspartate Aminotransferase 30 IU/L (14-36); BUN Creatinine Ratio 23.8 (6-22); Bilirubin Total 0.8 mg/dL (0.2-1.3); Blood Urea Nitrogen 19 mg/dL (7-17); Calcium 9.6 mg/dL (8.4-10.2); Carbon Dioxide 26 mmol/L (22-32); Chloride 103 mmol/L (98-107); Estimated Glomerular Filt Rate > 60 mL/min (>60); Globulin 3.7 g/dL (1.7-4.1); Glucose 100 mg/dL (80-110); HEMOLYSIS < 15 (0-50); Lipase 181 U/L (23-300); Potassium 4.4 mmol/L (3.4-5.1); Sodium 138 mmol/L (137-145); Total Protein 8.1 g/dL (6.3-8.2)
--- NOTE | 2023-10-03 13:55 | ED.ABDPAIN ---
HPI - Abdominal Pain <Yue Weston PA-C - Last Filed: 10/04/23 19:31> General Chief Complaint: Abdominal Pain Stated Complaint: ABD Pain Time Seen by Provider: 10/03/23 13:18 Source: patient Mode of arrival: Wheelchair History of Present Illness HPI narrative: 78-year-old female with a history of diverticulitis, TIA, small-bowel obstruction COPD rheumatoid arthritis presents with concern for Right lower quadrant abdominal pain since Sunday. Patient describes the pain as a constant ache that is in the general area of her right low abdomen and somewhat in the middle. Nothing seems to make it worse or better, she says she has been having normal bowel movements without any blood or mucus present. She denies nausea or vomiting fevers chills or other symptoms. Related Data Home Medications Medication Instructions Recorded Confirmed Nebulizer: Home Unit 1 ea miscellaneous DIRECTED 01/28/19 07/27/22 Vitamin C 1 tab PO DAILY 01/28/19 07/27/22 acetaminophen 325 mg tablet 325 mg PO BID 01/28/19 07/27/22 folic acid 1 mg tablet 1 mg PO DAILY 01/28/19 07/28/22 hydroxychloroquine 200 mg tablet 200 mg PO DAILY 01/28/19 07/27/22 tramadol 50 mg tablet 50 mg PO DAILY 01/28/19 07/28/22 trazodone 50 mg tablet 50 mg PO BEDTIME sleep 01/28/19 07/28/22 vitamin E 1 cap PO DAILY 01/28/19 07/27/22 albuterol sulfate 2.5 mg/3 mL 2.5 mg inhalation PRN PRN 07/28/22 07/28/22 (0.083 %) solution for nebulization Respiratory Distress fluticasone fur. 100 mcg-umeclid 100 inh inhalation DAILY 07/28/22 07/28/22 62.5 mcg-vilant 25 mcg inhalat.powder (Trelegy Ellipta) Previous Rx's Medication Instructions Recorded albuterol sulfate 90 mcg/actuation 2 puff INH Q4H PRN #2 inhalations 09/15/16 aerosol inhaler (Ventolin HFA) omeprazole 20 mg capsule,delayed 20 mg PO DAILY #90 caps 07/22/18 release aspirin 81 mg tablet,delayed 81 mg PO DAILY #90 tabs 07/28/22 release atorvastatin 40 mg tablet (Lipitor) 40 mg PO BEDTIME #90 tabs 07/28/22 amoxicillin 875 mg-potassium 1 tab PO Q12H diverticulitis 14 10/03/23 clavulanate 125 mg tablet days #28 tabs Allergies Allergy/AdvReac Type Severity Reaction Status Date / Time Sulfa (Sulfonamide Allergy Severe rash Verified 10/28/22 14:45 Antibiotics) [SULFA (SULFONAMIDE ANTIBIOTICS)] hydrocodone [HYDROCODONE] AdvReac Mild itching Verified 10/28/22 14:45 methotrexate [METHOTREXATE] AdvReac Mild hair loss Verified 10/28/22 14:45 Review of Systems <Yue Weston PA-C - Last Filed: 10/04/23 19:31> Review of Systems Narrative: See HPI Patient History <Yue Weston PA-C - Last Filed: 10/04/23 19:31> Medical History Diverticulitis COPD (chronic obstructive pulmonary disease) Surgical History History of Status post hysterectomy Status post colonoscopy (09/28/10) Family History Mother Malignant neoplasm of female breast, unspecified laterality, unspecified site of breast Social History household members: family occupational status: employed Smoking Status: Former smoker Tobacco: How many years used: 40 alcohol intake: current substance use type: does not use Smoking Status: Former smoker alcohol intake frequency: 0-2 drinks per day Substance Use Type: does not use Exam <Yue Weston PA-C - Last Filed: 10/04/23 19:31> Narrative Exam Narrative: GENERAL: [78] year old patient appears stated age. Well-developed patient, in mild distress. HEAD: Atraumatic. Normocephalic. EYES: Pupils equal round and reactive. Extraocular motions intact. No scleral icterus. No injection or drainage. ENT: Nose without bleeding, purulent drainage. Airway patent. NECK: Trachea midline. CARDIOVASCULAR: Regular rate and rhythm without murmurs, gallops, or rubs. RESPIRATORY: Clear to auscultation. Breath sounds equal bilaterally. No wheezes, rales, or rhonchi. GASTROINTESTINAL: Abdomen soft, there is generalized tenderness most prominent in the right lower quadrant and periumbilical region. Patient also has some right upper quadrant and epigastric tenderness that is less prominent, no peritoneal signs, otherwise Non-tender, nondistended. EXTREMITIES: No edema or joint tenderness. BACK: Nontender without deformity or crepitance. No flank tenderness. NEURO: AOx3. SKIN: No rash or erythema of visible areas Initial Vital Signs Initial Vital Signs: Vital Signs Temperature 97.3 F L 10/03/23 12:50 Pulse Rate 73 10/03/23 12:50 Respiratory Rate 16 10/03/23 12:50 Blood Pressure 151/67 H 10/03/23 12:50 Pulse Oximetry 97 10/03/23 12:50 Oxygen Delivery Method Room Air 10/03/23 12:50 <DO Odilia Vázquez Last Filed: 10/06/23 07:49> Initial Vital Signs Initial Vital Signs: Vital Signs Temperature 97.3 F L 10/03/23 12:50 Pulse Rate 73 10/03/23 12:50 Respiratory Rate 16 10/03/23 12:50 Blood Pressure 151/67 H 10/03/23 12:50 Pulse Oximetry 97 10/03/23 12:50 Oxygen Delivery Method Room Air 10/03/23 12:50 Course <Yue Weston PA-C - Last Filed: 10/04/23 19:31> Orders Ordered: Discontinued Medications Ondansetron HCl (Ondansetron 4 Mg/2 Ml Inj) 4 mg IV NOW PRN PRN Reason: Nausea And Vomiting Ondansetron HCl (Ondansetron 4 Mg Odt) 4 mg PO NOW PRN PRN Reason: Nausea And Vomiting Vital Signs Vital signs: Vital Signs - 8 hr 10/03/23 12:50 10/03/23 15:43 Temperature 97.3 F L Pulse Rate 73 90 Respiratory Rate 16 16 Blood Pressure 151/67 H 115/56 L Pulse Oximetry 97 96 Oxygen Delivery Method Room Air Room Air <DO Odilia Vázquez Last Filed: 10/06/23 07:49> Orders Ordered: Discontinued Medications Ondansetron HCl (Ondansetron 4 Mg/2 Ml Inj) 4 mg IV NOW PRN PRN Reason: Nausea And Vomiting Ondansetron HCl (Ondansetron 4 Mg Odt) 4 mg PO NOW PRN PRN Reason: Nausea And Vomiting Vital Signs Vital signs: Vital Signs - 8 hr 10/03/23 12:50 10/03/23 15:43 Temperature 97.3 F L Pulse Rate 73 90 Respiratory Rate 16 16 Blood Pressure 151/67 H 115/56 L Pulse Oximetry 97 96 Oxygen Delivery Method Room Air Room Air MDM - Abdominal Pain <Yue Weston PA-C - Last Filed: 10/04/23 19:31> Differential Diagnosis Differential diagnosis: Likely abdominal pain, acute appendicitis, calculus of kidney, diverticulitis and pancreatitis Medical Records Attestation: I reviewed the patient's medical records. Lab Data Attestation: I reviewed the patient's lab results. 10/03/23 13:15 10/03/23 13:15 Labs: Lab Results 10/03/23 10/03/23 Range/Units 13:15 13:30 WBC 8.9 (4.5-11.0) X10^3/uL RBC 4.47 (4.0-5.2) X10^6/uL Hgb 12.0 (12.0-16.0) g/dL Hct 36.2 (36-46) % MCV 80.9 (80-100) fL MCH 26.7 (26-34) PG MCHC 33.0 (30-36) % RDW 14.1 (11.6-14.8) % Plt Count 228 (150-400) X10^3/uL Neut % (Auto) 72.6 (50-75) % Lymph % (Auto) 15.8 L (25-40) % Baxter % (Auto) 9.6 (3-14) % Eos % (Auto) 1.2 L (2-4) % Baso % (Auto) 0.8 (0-2) % Neut # (Auto) 6400 (8250-1808) /uL Lymph # (Auto) 1400 (1500-1269) /uL Baxter # (Auto) 900 (0-900) /uL Eos # (Auto) 100 (0-450) /uL Baso # (Auto) 100 (0-100) /uL Sodium 138 (137-145) mmol/L Potassium 4.4 (3.4-5.1) mmol/L Chloride 103 (98-107) mmol/L Carbon Dioxide 26 (22-32) mmol/L BUN 19 H (7-17) mg/dL Creatinine 0.80 (0.52-1.04) mg/dL Estimated GFR > 60 (>60) mL/min BUN/Creatinine Ratio 23.8 H (6-22) Glucose 100 (80-110) mg/dL Calcium 9.6 (8.4-10.2) mg/dL Total Bilirubin 0.8 (0.2-1.3) mg/dL AST 30 (14-36) IU/L ALT 20 (<35) IU/L Alkaline Phosphatase 67 (38-126) U/L Total Protein 8.1 (6.3-8.2) g/dL Albumin 4.4 (3.5-5.0) g/dL Globulin 3.7 (1.7-4.1) g/dL Albumin/Globulin Ratio 1.2 (1.0-2.8) Lipase 181 (23-300) U/L Urine RBC 5-10/hpf H (0-5/HPF) Urine WBC 1-5/hpf (0-5/HPF) Ur Squamous Epith Cells 1-5 /hpf (0-5/HPF) Urine Bacteria Few (2-10) H (None) Urine Mucus 2+ H (Negative) Ur Culture Indicated? Cult not indicated Vol Urine Centrifuged 10ml (spun) Point of care testing: Urine Dip Bedside Urine Glucose Negative Bedside Urine Bilirubin - Negative Bedside Urine Ketone - Negative Urine Specific [place] 1.030 Bedside Urine Occult Blood - Negative Bedside Urine pH 6.0 Bedside Urine Protein +/- 15 Bedside Urine Urobilinogen - Negative Bedside Urine Nitrite - Negative Bedside Urine Leukocytes - Negative Esterase Imaging Data CT scan - abdomen/pelvis: My Impression: agree with radiology interpretation Radiologist's Impression: [address] [address] [address] Scan Report Signed Patient: Valarie Saleh MR#: [id number] : 1945 Acct:[id number] Age/Sex: 78 / F Date of Service: 10/03/23 Loc: ED Accession Number: [id number] Procedure: CT abdomen pelvis w con Ordering Provider: Yue Weston P.A-C PROCEDURE: CT ABDOMEN PELVIS W CON INDICATIONS: RLQ tenderness x 5 D worse w/move, r/o appy hx divertic TECHNIQUE: After the administration of intravenous contrast, axial sections acquired from the lung bases to the pubic symphysis. Coronal and sagittal reformats were performed. For radiation dose reduction, the following was used: automated exposure control, adjustment of mA and/or kV according to patient size. COMPARISON: [facility], CT, CT ABDOMEN PELVIS W CON, 01/28/2019, 17:31. FINDINGS: Image quality: Diagnostic. Lower Chest: No significant findings. ABDOMEN: Liver: No solid mass. Gallbladder: No radiopaque gallstones or wall thickening. Biliary ducts: No biliary dilation. Pancreas: No ductal dilation. Spleen: Size is within normal limits. Adrenal Glands: No adrenal nodules. Kidneys and Ureters: No hydronephrosis. No solid mass. No complex renal cystic lesion which requires follow up. Stomach and Bowel: Stomach and small bowel are within normal limits. Appendix is normal. Colon is nondistended. Diverticulosis of the transverse, descending and sigmoid colon is present. There is moderate thickening of the mid sigmoid colon within the left hemipelvis which demonstrates mild surrounding fat stranding. No pericolonic abscess. Peritoneum: No abnormal intraperitoneal fluid. No free air. Ventral Wall: No significant ventral hernia. Abdominal Nodes: No retroperitoneal or mesenteric adenopathy by size criteria. Vessels: Aorta and inferior vena cava are normal in size. PELVIS: Pelvic Organs: Increased, 46 mm left adnexal cyst. Bladder: No bladder wall thickening, accounting for underdistention. Pelvic Nodes: No enlarged lymph nodes. Miscellaneous: No inguinal hernias are seen. Bones: No aggressive osseous abnormality. There are mildly displaced right lateral 8th and 9th rib fractures. Mild chronic appearing L1 and L3 compression fractures. IMPRESSION: 1. Diverticulitis. Follow-up colonoscopy is recommended to exclude underlying neoplasm. 2. Increased left adnexal cyst. Gynecological consultation is recommended to assess for malignancy. 3. Appendix is within normal limits. 4. Right rib fractures. Dictated by: Gwen Shah M.D. on 10/03/2023 at 14:50 Approved by: Gwen Shah M.D. on 10/03/2023 at 14:53 Treatment and Disposition Shared decision making:: Shared decision-making was used to determine the patient's plan of care in the emergency department plan for outpatient follow-up MDM Narrative Medical decision making narrative: This is a 78-year-old woman with history of diverticulitis, rheumatoid arthritis small-bowel obstruction who presents with concern for moderate right-sided abdominal pain for the past 5 days persistent and not relieved with anything. Patient's labs are unremarkable however she does have notable tenderness on exam and CT scan is obtained for further evaluation. This reveals diverticulitis of the ascending transverse and sigmoid colon. Patient is placed on antibiotics, Augmentin and general surgery is consulted advising them of this patient's situation she is encouraged to see them for follow-up in clinic. Inflammatory markers were not obtained. Patient declined pain medicine during the emergency department stay and also declined any pain medicine prescriptions. Return precautions provided, follow-up plan discussed, all questions answered After the patient was discharged reviewed her imaging again and realized we did not discuss the presence of 8th and 9th rib fractures seen by Radiology nor did we discussed the L1 and L3 lumbar compression fractures. Did call the patient after discharge and discuss these with her. The rib fractures were something she was unaware of although she does endorse having an injury a while ago and says that she did not seek evaluation for this. However I do see that she had rib series x-rays done August 09, 2023 a little less than 2 months ago which was negative for fracture. Patient denies seeing a provider for her injury but suspects that this is the same time line when she injured herself but did not get seen. I noted to the patient that these x-rays did show no evidence of fracture but that sometimes x-rays are not detailed enough to show this type of injury on the same day it occurs. She was aware of the lumbar fractures and states these are old. <Camelia Lipscomb, DO - Last Filed: 10/06/23 07:49> Lab Data Labs: Lab Results 10/03/23 10/03/23 Range/Units 13:15 13:30 WBC 8.9 (4.5-11.0) X10^3/uL RBC 4.47 (4.0-5.2) X10^6/uL Hgb 12.0 (12.0-16.0) g/dL Hct 36.2 (36-46) % MCV 80.9 (80-100) fL MCH 26.7 (26-34) PG MCHC 33.0 (30-36) % RDW 14.1 (11.6-14.8) % Plt Count 228 (150-400) X10^3/uL Neut % (Auto) 72.6 (50-75) % Lymph % (Auto) 15.8 L (25-40) % Baxter % (Auto) 9.6 (3-14) % Eos % (Auto) 1.2 L (2-4) % Baso % (Auto) 0.8 (0-2) % Neut # (Auto) 6400 (6201-3088) /uL Lymph # (Auto) 1400 (8768-9210) /uL Baxter # (Auto) 900 (0-900) /uL Eos # (Auto) 100 (0-450) /uL Baso # (Auto) 100 (0-100) /uL Sodium 138 (137-145) mmol/L Potassium 4.4 (3.4-5.1) mmol/L Chloride 103 (98-107) mmol/L Carbon Dioxide 26 (22-32) mmol/L BUN 19 H (7-17) mg/dL Creatinine 0.80 (0.52-1.04) mg/dL Estimated GFR > 60 (>60) mL/min BUN/Creatinine Ratio 23.8 H (6-22) Glucose 100 (80-110) mg/dL Calcium 9.6 (8.4-10.2) mg/dL Total Bilirubin 0.8 (0.2-1.3) mg/dL AST 30 (14-36) IU/L ALT 20 (<35) IU/L Alkaline Phosphatase 67 (38-126) U/L Total Protein 8.1 (6.3-8.2) g/dL Albumin 4.4 (3.5-5.0) g/dL Globulin 3.7 (1.7-4.1) g/dL Albumin/Globulin Ratio 1.2 (1.0-2.8) Lipase 181 (23-300) U/L Urine RBC 5-10/hpf H (0-5/HPF) Urine WBC 1-5/hpf (0-5/HPF) Ur Squamous Epith Cells 1-5 /hpf (0-5/HPF) Urine Bacteria Few (2-10) H (None) Urine Mucus 2+ H (Negative) Ur Culture Indicated? Cult not indicated Vol Urine Centrifuged 10ml (spun) Point of care testing: Urine Dip Bedside Urine Glucose Negative Bedside Urine Bilirubin - Negative Bedside Urine Ketone - Negative Urine Specific [place] 1.030 Bedside Urine Occult Blood - Negative Bedside Urine pH 6.0 Bedside Urine Protein +/- 15 Bedside Urine Urobilinogen - Negative Bedside Urine Nitrite - Negative Bedside Urine Leukocytes - Negative Esterase Discharge Plan Departure Patient Disposition: Home Clinical Impression: Diverticulitis, Adnexal cyst, Abdominal pain, RLQ, Colonic diverticulum Activity Restrictions/Additional Instructions: *You have been diagnosed with [diverticulitis] *What to do: *Please continue to take your regular medications as directed. [ 1] New medication prescriptions sent to your pharmacy: [Augmentin] [ ] New medication written as a paper prescription [ ] No new medications given *Please follow up with your primary care provider in 2-3 days, call for an appointment. Let them know you were seen in the Emergency Department and that we ask that you be seen in follow up. We will electronically transmit a record of today's note if your PCP is in our system. You came in today with concern for right low abdominal pain since Sunday. We did do a CT scan today that does show diverticulitis of your transverse descending and sigmoid colon. This is inflammation of your diverticula. I am placing you on antibiotics for a 14 day course Augmentin to treat this. You are encouraged to follow up closely with General surgery and see them so that you can have a colonoscopy done once her symptoms improve and the antibiotics work. In addition CT scan showed you have a cyst in your left low belly/pelvis and we recommend that you follow-up with gynecology or talk to your primary care provider about this you may want to have additional imaging and evaluation of this to determine whether it is benign. Additionally your urine was somewhat suspicious for urinary tract infection. I did send this for urine culture. The antibiotics I am prescribing for your diverticulitis will likely treat a UTI if you have 1 but you will get a call if you do have a urinary tract infection that is not susceptible to this antibiotic. If you have worsening pain symptoms, fevers, develop persistent diarrhea, blood in your stool, constipation or other symptoms please do not hesitate to seek re-evaluation immediately. Otherwise follow up closely with General surgery and your PCP, gynecology. *If you do not have a primary care provider please contact the [facility] Resource line at [phone]. They will ask some questions about your medical history and help get you set up with a doctor in the community. *Return to Emergency Department if you should have any new, worsening or concerning symptoms, such as [fever greater than 101 F, shaking chills, worsening pain, persistent vomiting or other bothersome symptoms] Prescriptions: New amoxicillin-pot clavulanate 875-125 mg tablet 1 tab PO Q12H 14 Days Qty: 28 0RF No Action albuterol sulfate [Ventolin HFA] 90 MCG/PUFF HFA aerosol inhaler 2 puff INH Q4H PRNQty: 2 12RF omeprazole 20 mg capsule,delayed release(DR/EC) 20 mg PO DAILY Qty: 90 0RF Rx Instructions: swallow whole; do not crush, chew, dissolve, cut, break acetaminophen 325 mg Tablet 325 mg PO BID Patient Comments: patient states takes with Naproxen bid between Tramadol doses folic acid 1 mg tablet 1 mg PO DAILY Patient Comments: take 1 tablet by mouth once daily hydroxychloroquine 200 mg tablet 200 mg PO DAILY Vitamin C 1 tab PO DAILY vitamin E 1 cap PO DAILY trazodone 50 mg tablet 50 mg PO BEDTIME tramadol 50 MG tablet 50 mg PO DAILY Nebulizer: Home Unit 1 ea miscellaneous DIRECTED albuterol sulfate 2.5 mg /3 mL (0.083 %) solution for nebulization 2.5 mg inhalation PRN PRN (Reason: Respiratory Distress) Trelegy Ellipta 100-62.5-25 mcg blister with device 100 inh INHALATION DAILY aspirin 81 mg Tablet,Delayed Release (Dr/Ec) 81 mg PO DAILY Qty: 90 0RF atorvastatin [Lipitor] 40 mg tablet 40 mg PO BEDTIME Qty: 90 0RF Referrals: Marco Mg MD [Physician] - (needs visit/possible colonoscopy--transvers, sigmoid, descending colon diverticulitis) Anahi Malone ARNP [Primary Care Provider] - Stand Alone Forms: Patient Portal/API ED Sign-out <Camelia Lipscomb DO - Last Filed: 10/06/23 07:49> Cosign ED Attending Brent Attestation: I was available for consultation.
[2023-10-03 14:06] LABS: Bacteria Urine Few (2-10); Culture Indicated Urine Cult Not Indicated; Mucus Urine 2+ (Negative); RBC Urine 5-10/HPF (0-5/HPF); Squamous Epithelial Cell Urine 1-5 /HPF (0-5/HPF); Urine Volume 10mL (spun); WBC Urine 1-5/HPF (0-5/HPF)
--- NOTE | 2023-10-03 14:26 | DI.CT.S_ITS ---
PROCEDURE: CT ABDOMEN PELVIS W CON INDICATIONS: RLQ tenderness x 5 D worse w/move, r/o appy hx divertic TECHNIQUE: After the administration of intravenous contrast, axial sections acquired from the lung bases to the pubic symphysis. Coronal and sagittal reformats were performed. For radiation dose reduction, the following was used: automated exposure control, adjustment of mA and/or kV according to patient size. COMPARISON: [facility], CT, CT ABDOMEN PELVIS W CON, 01/28/2019, 17:31. FINDINGS: Image quality: Diagnostic. Lower Chest: No significant findings. ABDOMEN: Liver: No solid mass. Gallbladder: No radiopaque gallstones or wall thickening. Biliary ducts: No biliary dilation. Pancreas: No ductal dilation. Spleen: Size is within normal limits. Adrenal Glands: No adrenal nodules. Kidneys and Ureters: No hydronephrosis. No solid mass. No complex renal cystic lesion which requires follow up. Stomach and Bowel: Stomach and small bowel are within normal limits. Appendix is normal. Colon is nondistended. Diverticulosis of the transverse, descending and sigmoid colon is present. There is moderate thickening of the mid sigmoid colon within the left hemipelvis which demonstrates mild surrounding fat stranding. No pericolonic abscess. Peritoneum: No abnormal intraperitoneal fluid. No free air. Ventral Wall: No significant ventral hernia. Abdominal Nodes: No retroperitoneal or mesenteric adenopathy by size criteria. Vessels: Aorta and inferior vena cava are normal in size. PELVIS: Pelvic Organs: Increased, 46 mm left adnexal cyst. Bladder: No bladder wall thickening, accounting for underdistention. Pelvic Nodes: No enlarged lymph nodes. Miscellaneous: No inguinal hernias are seen. Bones: No aggressive osseous abnormality. There are mildly displaced right lateral 8th and 9th rib fractures. Mild chronic appearing L1 and L3 compression fractures. IMPRESSION: 1. Diverticulitis. Follow-up colonoscopy is recommended to exclude underlying neoplasm. 2. Increased left adnexal cyst. Gynecological consultation is recommended to assess for malignancy. 3. Appendix is within normal limits. 4. Right rib fractures. Dictated by: Gwen Shah M.D. on 10/03/2023 at 14:50 Approved by: wGen Shah M.D. on 10/03/2023 at 14:53
[2023-10-03 15:43] VITALS: BP 115/56; PULSE 90; RESP 16; O2SAT 96
== END 2023-10-03 15:44 | disposition home or self-care (01) ==
PROVIDERS: Emergency Medicine; Emergency Provider Student in an Organized Health Care Education/Training Program; PCP Internal Medicine
DX: K57.32 Diverticulitis of large intestine without perforation or abscess without bleeding (principal); K57.30 Diverticulosis of large intestine without perforation or abscess without bleeding; N94.9 Unspecified condition associated with female genital organs and menstrual cycle; R10.31 Right lower quadrant pain
CPT/HCPCS: 36415; 74177; 80053; 81003; 81015; 83690; 85025; 87086; 93005; 93010; 99284; Q9967

== ENCOUNTER → 2023-10-15 06:39 | Outpatient (CLI) | payer MEDICARE, SELFPAY ==
[2022-07-27 18:46] VITALS: BMI 20.5
--- NOTE | 2023-10-15 06:40 | DI.ECHO.S_ITS ---
[facility] +---------+ : : [address] : : : : [id number] : : : : Phone: [phone]+ Echocardiogram Report + + :Name: KELY HURT Study Date: 10/15/2023 Height: 61 in : :[facility] ReadingLocation: Weight: 125 lb : : Gender: Female BSA: 1.5 m2 : :: 1945 Age: 78 yrs BP: 136/75 mmHg: :Reason For Study: CHEST PAIN : :Ordering Physician: TONI, : :AMADOR Performed By: Ines Garibay : :Referring: AMADOR MUÑOZ : + + Interpretation Summary Normal left ventricle size with ejection fraction 55-60%. Mild biatrial enlargement. Mild mitral regurgitation. Mild to moderate tricuspid regurgitation. The right ventricular systolic pressure is estimated to be at least 32 mmHg based on an estimated right atrial pressure of 3 mm Hg. Comparison is made with the echocardiogram of 07/28/2022, there has been no significant change. Procedure: A two-dimensional transthoracic echocardiogram with color flow and Doppler was performed. The study quality was technically adequate. Comparison is made with the echocardiogram of 07/28/2022. The patient was in sinus rhythm with heart rates between 72-86 bpm during the exam. Left Ventricle: The left ventricle is normal in size and wall thickness. The ejection fraction is estimated to be 55-60%. There are no focal wall motion abnormalities. Diastolic function could not be accurately assessed due to confounding valvular disease. Right Ventricle: The right ventricle is normal in size and function. Atria: There is mild biatrial enlargement. There is no Doppler evidence for an interatrial shunt. Mitral Valve: The mitral valve leaflets appear borderline thickened, but open well. There is mild mitral regurgitation. Aortic Valve: The aortic valve is trileaflet. The aortic valve opens well. There is no aortic valve stenosis. No aortic regurgitation is present. Tricuspid Valve: The tricuspid valve leaflets are thin and pliable. There is mild to moderate tricuspid regurgitation. The right ventricular systolic pressure is estimated to be at least 32 mmHg based on an estimated right atrial pressure of 3 mm Hg. Pulmonic Valve: The pulmonic valve leaflets are thin and pliable; valve motion is normal. There is mild pulmonic regurgitation. Great Vessels: The aortic root is normal size. The dimensions of the ascending aorta are normal. The IVC is of normal diameter and collapses greater than 50% with a sniff. This suggests a low right atrial pressure of 3 mm Hg. Pericardium/ Pleura There is no pericardial effusion. There is no pleural effusion. MMode/2D Measurements & Calculations LVIDd: 4.6 cm LVOT diam: 2.0 cm LVIDs: 2.8 cm Ao root diam: 2.9 cm FS: 38.9 % asc Aorta Diam: 2.9 cm EPSS: 0.48 cm Ao Arch Diam (Prox Trans): 2.3 cm IVSd: 0.83 cm LVPWd: 0.71 cm LV yanes. diameter/BSA (cm/m^2): 3.0 LV sys. diameter/BSA (cm/m^2): 1.8 LA A2 area: 17.4 cm2 RA long axis: 4.9 cm LA A4 area: 16.4 cm2 RA area: 19.5 cm2 LA length (vol): 4.3 cm RA vol: 66.3 ml LA vol: 55.9 ml RA : 42.9 ml/m2 LA vol index: 36.2 ml/m2 IVC diam: 1.3 cm RVD1 (basal): 4.3 cm RVD2 (mid): 3.3 cm TAPSE: 2.2 cm Doppler Measurements & Calculations Ao V2 max: 125.9 cm/sec LVOT Max Jefferson: 93.8 cm/sec Ao V2 mean: 94.1 cm/sec LV V1 max P.5 mmHg Ao max P.3 mmHg LV V1 VTI: 18.2 cm Ao mean P.8 mmHg EUGENIA(I,D): 2.2 cm2 Ao V2 VTI: 25.4 cm EUGENIA(V,D): 2.3 cm2 sev ratio: 0.72 EUGENIA indexed to BSA (cm^2/m^2): 1.4 MV E max jefferson: 53.3 cm/sec TR max jefferson: 268.5 cm/sec MV A max jefferson: 82.1 cm/sec TR max P.8 mmHg MV E/A: 0.65 PA V2 max: 134.5 cm/sec Med Peak E' Jefferson: 5.5 cm/sec PA V2 mean: 82.9 cm/sec E/E' med: 9.7 PA mean P.2 mmHg Lat Peak E' Jefferson: 8.1 cm/sec PA pr(Accel): 37.9 mmHg E/E' lat: 6.6 E/e' average: 8.1 MV dec time: 0.21 sec SV(LVOT): 56.7 ml Electronically signed by: Magalys Barker on Reading Physician:10/15/2023 09:23 AM
== END ==
LOC: ECHO 06:39
PROVIDERS: PCP Internal Medicine; Referring Provider Internal Medicine; Visit Provider Internal Medicine
DX: I08.1 Rheumatic disorders of both mitral and tricuspid valves (principal); R07.9 Chest pain, unspecified; I10 Essential (primary) hypertension
CPT/HCPCS: 93306

== ENCOUNTER → 2023-10-25 07:40 | Outpatient (CLI) | payer MEDICARE, SELFPAY ==
[2022-07-27 18:46] VITALS: BMI 20.5
--- NOTE | 2023-10-25 08:00 | DI.US.S_ITS ---
PROCEDURE: US PELVIC COMPLETE INDICATIONS: FOLLOW UP LEFT ADNEXAL CYST ON CT TECHNIQUE: Real-time scanning was performed of the pelvic organs, with image documentation. Additional endovaginal scanning was necessary due to incomplete visualization of the adnexal and endometrial structures by transabdominal scanning. COMPARISON: [facility], CT, CT ABDOMEN PELVIS W CON, 01/28/2019, 17:31. [facility], CT, CT ABDOMEN PELVIS W CON, 10/03/2023, 14:43. FINDINGS: Uterus: 5.2 x 4.7 x 2.4 cm. Anteverted positioning. Atrophic endometrium, measuring under 1 mm, with small calcifications. Heterogeneous echotexture. Ovaries: The ovaries are not well seen. 4.2 x 3.8 x 3.6 cm anechoic cystic lesion in the left lower quadrant versus left adnexa, does not appear to be based in the ovary. No soft tissue component identified by ultrasound. Other: No pathologic free fluid. IMPRESSION: Confirmation of a cystic lesion in the left adnexa versus left lower quadrant, likely separate from the ovary (which are not well seen), overall low suspicion. No sonographic soft tissue components. Consider follow-up ultrasound in 3-6 months for surveillance and possible gynecologic follow-up. This was seen in 2019 CT but was smaller. Dictated by: Eliseo Morrison M.D. on 10/25/2023 at 10:58 Approved by: Eliseo Morrison M.D. on 10/25/2023 at 11:06
== END ==
PROVIDERS: PCP Internal Medicine; Referring Provider Student in an Organized Health Care Education/Training Program; Visit Provider Student in an Organized Health Care Education/Training Program
DX: N94.9 Unspecified condition associated with female genital organs and menstrual cycle (principal); R10.31 Right lower quadrant pain
CPT/HCPCS: 76830; 76856

== ENCOUNTER → 2023-10-30 08:59 | Outpatient (CLI) | payer MEDICARE, SELFPAY ==
[2022-07-27 18:46] VITALS: BMI 20.5
[2023-11-02 11:19] LABS: Human Epididymis Prot 4 84.6 pmol/L (0.0-96.9)
== END ==
PROVIDERS: PCP Internal Medicine; Referring Provider Student in an Organized Health Care Education/Training Program; Visit Provider Student in an Organized Health Care Education/Training Program
DX: R10.31 Right lower quadrant pain (principal); R19.09 Other intra-abdominal and pelvic swelling, mass and lump; N94.9 Unspecified condition associated with female genital organs and menstrual cycle
CPT/HCPCS: 36415; 86304; 86305

== ENCOUNTER → 2023-10-31 08:03 | Outpatient (CLI) | payer MEDICARE, SELFPAY ==
[2022-07-27 18:46] VITALS: BMI 20.5
--- NOTE | 2023-11-01 02:12 | DI.NM.S_ITS ---
DATE OF SERVICE: 10/31/2023 ORDERING PROVIDER: THANH Ge PROCEDURE: Exercise treadmill stress and rest myocardial perfusion imaging with gating to assess ejection fraction and regional wall motion. INDICATIONS: The patient is a 78-year-old hypertensive female with palpitations and atypical chest discomfort. CARDIAC STRESS: The patient was able to exercise for 5 minutes, 26 seconds on a standard Derik protocol suggesting fair exercise capacity with an LORETTA of -6%, achieving 5.6 METs. She had a normal hemodynamic response to exercise, achieving a maximum heart rate of 166 bpm, (115% of her predicted maximum). She had no chest discomfort or other anginal symptoms. Her resting ECG is normal with occasional isolated PVCs. With stress, there are no significant ST-segment shifts or arrhythmias. At 4 minutes, 15 seconds of exercise at a heart rate of 160 BPM, 24.6 millicuries of technetium-99m Myoview was injected and she was imaged 20 minutes later using a gated SPECT acquisition protocol. Earlier in the day while at rest, she had been injected with 12.0 millicuries of technetium-99m Myoview and was imaged 15 minutes later, again using a gated SPECT acquisition protocol. RAW DATA: 1. There is fairly good myocardial tracer uptake with mild breast shadows noted. There is a suggestion of possible right ventricular enlargement. The lung/heart ratio is normal at 0.32 with a normal TID ratio of 0.83. 2. Quantitated gated SPECT: Post-stress ejection fraction is estimated at 84% without any focal wall motion abnormality. The resting ejection fraction is 70% with normal resting end-diastolic volume of 61 mL. 3. Myocardial perfusion imaging: Post-stress supine images show a fairly normal myocardial perfusion pattern with only a very subtle defect in the distal anteroseptal apex in a pattern consistent with breast attenuation artifact, supported by its resolution on the prone images. The resting images show an identical perfusion pattern without any perfusion defects. IMPRESSION: 1. Normal myocardial perfusion study. 2. Small, subtle, fixed distal anteroseptal defect that resolves on prone imaging, consistent with breast attenuation artifact. There is no compelling evidence for any myocardial ischemia or previous myocardial infarction. 3. Normal left ventricular size and systolic function without any focal wall motion abnormality. There is a suggestion of possible right ventricular enlargement, but clinical correlation is needed. 4. Fair exercise capacity without angina or ECG evidence of ischemia. She had occasional isolated PVCs but no complex ectopy. Valarie Saleh - ROSEANNE/luis/carol doc#: [id number]/job#: [id number] dd: 10/31/2023 16:55:00 dt: 11/01/2023 01:58:00 DICTATING /COPIES TO: Justen Mcgowan MD; THANH Ge COPIES MNE: KULWINDER;
== END ==
LOC: NUCM 08:03
PROVIDERS: PCP Internal Medicine; Referring Provider Internal Medicine; Visit Provider Internal Medicine
DX: R07.89 Other chest pain (principal); I10 Essential (primary) hypertension; R00.2 Palpitations
CPT/HCPCS: 78452; 93017; A9502

== ENCOUNTER → 2023-11-12 14:13 | Outpatient (CLI) | payer MEDICARE, SELFPAY ==
[2022-07-27 18:46] VITALS: BMI 20.5
--- NOTE | 2023-11-12 14:17 | DI.RAD.S_ITS ---
PROCEDURE: XR RIBS BI MIN 4V W CXR1V INDICATIONS: FALL, RIB PAIN TECHNIQUE: 2 views of the ribs were acquired, along with a single view chest. COMPARISON: None. FINDINGS: Surgical changes and devices: None. Bones and chest wall: Suspected minimally displaced right 8th to 10th rib fractures. Scattered degenerative changes. Questionable deformity, age indeterminate of the left 7th and 8th ribs. Lungs and pleura: Mildly prominent interstitium. Suspected bilateral atelectasis and scarring. No discrete pneumothorax. No pleural effusions. Mild perihilar opacities. Mediastinum: Borderline heart size. Aortic calcifications. IMPRESSION: Suspected bilateral rib fractures as above. These are probably acute on the right and age-indeterminate on the left. Correlate with location of injury and tenderness. Suspected hypoventilatory changes in the lungs. There may be superimposed bronchial wall thickening and airspace disease versus edema. Consider future imaging surveillance to assess for resolution. No discrete pneumothorax. Dictated by: Eliseo Morrison M.D. on 11/12/2023 at 15:52 Approved by: Eliseo Morrison M.D. on 11/12/2023 at 15:54
== END ==
LOC: RAD 14:16
PROVIDERS: PCP Internal Medicine; Referring Provider Internal Medicine; Visit Provider Internal Medicine
DX: R07.81 Pleurodynia (principal); I70.0 Atherosclerosis of aorta
CPT/HCPCS: 71111

== ENCOUNTER 2023-11-23 14:47 | Day surgery (SDC) | payer MEDICARE, SELFPAY ==
[2022-07-27 18:46] VITALS: BMI 20.5
[2023-11-23 15:02] VITALS: BP 157/86; PULSE 94; RESP 18; TEMP 36.5; O2SAT 95
[2023-11-23] MEDS: LACTATED RINGERS 1,000 ML 42 ML IV (15:10)
--- NOTE | 2023-11-23 15:17 | P.HP_ITS ---
History of Present Illness History of Present Illness Date Patient Seen: 11/23/23 Chief complaint: Dx Colonoscopy w/poss bx Narrative: 78-year-old woman here for screening colonoscopy. Last colonoscopy several years ago date not recalled. No family history of intestinal malignancy. No abdominal concerns today. [facility] Medical History Diverticulitis COPD (chronic obstructive pulmonary disease) Surgical History History of Status post colonoscopy (09/28/10) Family History Mother Malignant neoplasm of female breast, unspecified laterality, unspecifie d site of breast Aunt Cancer Social History household members: family occupational status: employed Smoking Status: Former smoker Tobacco: How many years used: 40 alcohol intake: current substance use type: does not use Meds Home Medications and Allergies Home Medications Medication Instructions Recorded Confirmed Type omeprazole 20 mg capsule,delayed 20 mg PO DAILY #90 caps 07/22/18 10/30/23 Rx release Nebulizer: Home Unit 1 ea miscellaneous DIRECTED 01/28/19 10/30/23 History Vitamin C 1 tab PO DAILY 01/28/19 10/30/23 History acetaminophen 325 mg tablet 325 mg PO BID 01/28/19 11/23/23 History folic acid 1 mg tablet 1 mg PO DAILY 01/28/19 10/30/23 History hydroxychloroquine 200 mg tablet 200 mg PO DAILY 01/28/19 10/30/23 History tramadol 50 mg tablet 50 mg PO DAILY 01/28/19 11/23/23 History trazodone 50 mg tablet 50 mg PO BEDTIME sleep 01/28/19 10/30/23 History vitamin E 1 cap PO DAILY 01/28/19 10/30/23 History albuterol sulfate 2.5 mg/3 mL 2.5 mg inhalation PRN PRN 07/28/22 10/30/23 History (0.083 %) solution for nebulization Respiratory Distress aspirin 81 mg tablet,delayed 81 mg PO DAILY #90 tabs 07/28/22 10/30/23 Rx release atorvastatin 40 mg tablet (Lipitor) 40 mg PO BEDTIME #90 tabs 07/28/22 10/30/23 Rx fluticasone fur. 100 mcg-umeclid 100 inh inhalation DAILY 07/28/22 10/30/23 History 62.5 mcg-vilant 25 mcg inhalat.powder (Trelegy Ellipta) peg 3350-electrolytes 236 240 ml PO Q10M #4,000 mL 11/01/23 Rx gram-22.74 gram-6.74 gram-5.86 gram solution (Golytely) sodium,potassium,mag sulfates 17.5 See Rx Instructions PO .COMPLEX 11/08/23 Rx gram-3.13 gram-1.6 gram oral soln #354 mL (Suprep Bowel Prep Kit) albuterol sulfate 90 mcg/actuation 2 puff INH Q4H PRN sob 11/23/23 11/23/23 History aerosol inhaler (Ventolin HFA) lisinopril 5 mg tablet 5 mg PO DAILY 11/23/23 11/23/23 History Allergies Allergy/AdvReac Type Severity Reaction Status Date / Time Sulfa (Sulfonamide Allergy Severe rash Verified 10/30/23 08:22 Antibiotics) [SULFA (SULFONAMIDE ANTIBIOTICS)] hydrocodone [HYDROCODONE] AdvReac Mild itching Verified 10/30/23 08:22 methotrexate [METHOTREXATE] AdvReac Mild hair loss Verified 10/30/23 08:22 Exam Vital Signs (past 8 hours): - 11/23/23 15:02 Temperature 97.7 F Pulse Rate 94 H Respiratory Rate 18 Blood Pressure 157/86 H Pulse Oximetry 95 Oxygen Delivery Method Room Air Oxygen Delivery Method Room Air Narrative Exam Narrative: General adult woman alert oriented no acute distress Chest nonlabored respiration Extremities warm well perfused Assessment & Plan Assessment & Plan narrative: The patient requires colorectal screening and colonoscopy is recommended. Technical details were discussed. Risks, benefits, alternatives explained. Risks including but not limited to myocardial infarction, aspiration, bleeding, pain, missed lesion, incomplete examination, need for further radiographic studies, colonic perforation, and need for major abdominal surgery were discussed. All questions were answered to their satisfaction, and they are in agreement with this plan.
--- NOTE | 2023-11-23 15:52 | P.OP.COLON_ITS ---
Operative Date/Time/Diagnoses Date of procedure: 11/23/23 Time of procedure: 15:52 Pre-op diagnosis: Colorectal screening Procedure & Clinicians Study performed: Screening colonoscopy Same procedure as scheduled: Yes Indications: Colorectal screening Surgeon: Marco Mg Procedure Notes Procedure in detail: The history and physical was performed/updated and the patient is ASA class is 2. The procedure was discussed in detail with the patient. Potential risks co mplications including infection, bleeding, missed diagnosis, perforation, need for surgery, and were explained. Their questions were answered and informed consent was obtained. Patient was brought to the procedure room and placed standard monitoring equipment. The patient's vital signs were monitored continuously throughout the entire procedure. Prior to starting time-out was performed. The patient was placed in the left lateral recumbent position. Procedural sedation was administered by anesthesia. Examination began with a thorough inspection of the perianal area there was no evidence of fissures, fistulae, external hemorrhoids or cutaneous malignancy. The colonoscopy scope was then placed into the anal canal and was advanced to the cecum, which was identified by the ileocecal valve, the appendiceal orifice and the confluence of the taenia. The scope was then slowly withdrawn examining colon thoroughly in all directions, irrigating it of any residual stool. The scope was retroflexed within the rectum The patient tolerated the procedure well. They will be discharged once criteria are met. The prep was of poor quality. The withdrawl time was 7 minutes. FINDINGS * Moderate diverticulosis of sigmoid colon. * Tortuous distal colon * No masses or polyps Complications: none Impression: Diverticulosis Post-procedure Recommendations: High fiber diet Plan for aftercare: No further colonoscopy necessary unless symptomatic Disposition: same day surgery
[2023-11-23 15:53] VITALS: BP 149/83; PULSE 90; RESP 15; TEMP 36.2; O2SAT 96
[2023-11-23 15:59] VITALS: BP 149/84; PULSE 91; RESP 18; O2SAT 96
[2023-11-23 16:04] VITALS: BP 157/95; PULSE 90; RESP 18; TEMP 36.2; O2SAT 96
[2023-11-23 16:07] VITALS: BP 157/92; PULSE 92; RESP 18; O2SAT 96
== END 2023-11-23 16:18 | disposition home or self-care (01) ==
PROVIDERS: PCP Internal Medicine; Referring Provider Surgery; Visit Provider Surgery
PROC: 0DJD8ZZ Inspection of Lower Intestinal Tract, Via Natural or Artificial Opening Endoscopic (ICD-10-PCS; CPT 45378; principal; 2023-11-23 15:00)
DX: Z12.11 Encounter for screening for malignant neoplasm of colon (principal); K57.30 Diverticulosis of large intestine without perforation or abscess without bleeding
CPT/HCPCS: G0121; J2704

== ENCOUNTER → 2023-12-17 13:58 | Outpatient (CLI) | payer MEDICARE, SELFPAY ==
[2022-07-27 18:46] VITALS: BMI 20.5
--- NOTE | 2023-12-17 | DI.MG.S_ITS ---
BILATERAL DIGITAL SCREENING MAMMOGRAM 3D/2D WITH CAD: 12/17/2023 CLINICAL: Routine screening. Family history of breast cancer. Comparison is made to exams dated: 08/19/2020 mammogram, 08/18/2019 mammogram, and 08/14/2018 mammogram - [facility]. There are scattered areas of fibroglandular density in both breasts (category b / 25%-50% glandular tissue). Current study was also evaluated with a Computer Aided Detection (CAD) system. No significant masses, calcifications, or other findings are seen in either breast. There has been no significant interval change. IMPRESSION: NEGATIVE There is no mammographic evidence of malignancy. A 1 year screening mammogram is recommended. Based on the Tyrer Cuzick model (a risk assessment model) the patient's lifetime risk is 12.8% and her 10 year risk is 0.0%. According to the ACR, ACS, and NCCN guidelines, an annual breast MRI exam along with mammogram is recommended if the patient's lifetime risk is 20% or greater. This exam was interpreted at Station ID: [id number]. NOTE: For mammograms, a report in lay terms will be sent to the patient. Approximately 15% of breast malignancies will not be visualized mammographically. In the management of a palpable breast mass, a negative mammogram must not discourage biopsy of a clinically suspicious lesion. Electronically Signed By: Omid dunn/morales:12/17/2023 16:25:23 letter sent: Normal Exam ACR BI-RADS Category 1: Negative [id number]
== END ==
LOC: MAMMO 13:59
PROVIDERS: Family Provider Internal Medicine; PCP Internal Medicine; Referring Provider Internal Medicine; Visit Provider Internal Medicine
DX: Z12.31 Encounter for screening mammogram for malignant neoplasm of breast (principal); Z80.3 Family history of malignant neoplasm of breast; R92.323 Mammographic fibroglandular density, bilateral breasts
CPT/HCPCS: 77063; 77067

== ENCOUNTER 2023-12-25 09:45 | Outpatient (RCR) | payer MEDICARE, SELFPAY ==
[2022-07-27 18:46] VITALS: BMI 20.5
[2023-12-12 08:13] VITALS: BP 136/80
--- NOTE | 2023-12-12 17:16 | PT.OPPOC ---
Physical, Occupational & Speech Therapy At [facility] Current Diagnoses Age-related osteoporosis with current pathological fracture, unspecified site, initial encounter for fracture (12/12/23) Pleurodynia (12/12/23) Multiple fractures of ribs, bilateral, initial encounter for closed fracture (12/12/23) Unspecified fall, initial encounter (12/12/23) Visit Care Team Role Provider Type THANH Ge Attending Provider Advanced Planer Tailer Family Provider Primary Care Provider Referring Provider Specialty: Family Practice Address: [address] [place] [address], [id number] Email: Plan Of Care PT-OP-T Assessment and Plan Start: 12/06/23 17:40 Freq: Status: Active Protocol: Document 12/12/23 08:13 SAK (Rec: 12/12/23 09:01 SAK [id number]) Physical Therapy Assessment Rehab Potential Rehabilitation Potential Good Evaluation Complexity Number of Personal Factors/Comorbidities 1-2 Number of Body Systems Impaired 3 Clinical Presentation at Evaluation Evolving Impairments Impairments Activity Tolerance,Pain, Posture,Strength Other Concerns Barriers to Rehabilitation osteoporosis, age Goals Three Impairment Lack of regular exercise program Short Term Goal (STG) Instruct in gentle progressive individualized HEP including exercises and machines recommended for use at gym including spinal precautions STG Duration 01/11/24 Channel Machine Operator Goal (LTG) Patient to be independent and compliant with HEP and community-based exercise program without an increase in pain for halfway fitness and pain management. LTG Duration 02/11/24 Two Impairment limited activity tolerance Impairment Oswestry disability index score 27% Short Term Goal (STG) Decrease Oswestry disability index score to no greater than 15% as measure of improved activity tolerance STG Duration 01/11/24 Halfway Goal (LTG) Decrease score to no greater than 8% as measure of improved activity tolerance and quality of life LTG Duration 02/11/24 One Impairment pain thoracic spine especially with lifting Impairment as high as 6/10 Short Term Goal (STG) Decrease pain to no greater than 3/10 with all usual activities STG Duration 01/11/24 Halfway Goal (LTG) Decrease pain to no greater than 1-2/10 with all usual activities LTG Duration 02/11/24 Assessment Summary Assessment Patient presents to PT with function-limiting pain in thoracic region s/p rib fractures. Wants to be able to begin exercise program but hasn't done before and requires PT assistance to do safely with back protection principles in mind especially due to osteoporosis. She has strength and flexbility impairments but tested 50/56 on Nettles Balance testing indicating low fall risk. POC was discussed and patient was in agreement. Patient appears highly motivated. Physical Therapy Plan Frequency and Duration Frequency of Treatment 2x/Week Duration of treatment (weeks) 8 Plan of Care Start Date 12/12/23 Plan of Care End Date 02/11/24 Therapeutic Interventions Therapeutic Interventions Home Exercise Program,Manual Therapy,Patient/Caregiver Education,Self-Care/Home Management,Soft Tissue Mobilization,Taping, Therapeutic Activities, Therapeutic Exercises Modalities Cold Pack/Ice Massage,Electric Stimulation,Hot Packs, Ultrasound Next Visit Focus/Plan Next Note Type Treatment Note Next Visit Plan Review HEP, intiate gentle seated elliptical and strengthening exercises, manual therapy and modalities PRN. Plan of Care Dates Plan of Care Start Date 12/12/23 Plan of Care End Date 02/11/24 Electronically Signed by: Parvin Beal, PT 12/13/23 [id number] If you are in agreement with this Plan of Care, please return a signed and dated copy. I have reviewed this Plan of Care and certify that the skilled therapy services above are required to meet the patient?s needs. Physician Signature Date Printed Name and Credentials Clinical Instructor Signature Printed Name and Credentials
--- NOTE | 2023-12-12 17:16 | PT.OIE ---
Current Diagnoses Age-related osteoporosis with current pathological fracture, unspecified site, initial encounter for fracture (12/12/23) Pleurodynia (12/12/23) Multiple fractures of ribs, bilateral, initial encounter for closed fracture (12/12/23) Unspecified fall, initial encounter (12/12/23) Past Medical History (Last Updated 11/23/23 @ 18:01 by Mary Whitney) COPD (chronic obstructive pulmonary disease) Diverticulitis Osteoporosis (09/19/16) Rheumatoid arthritis (07/10/16) Past Surgical History (Last Updated 11/23/23 @ 18:01 by Mary Whitney) Anesthesia History of Status post colonoscopy (09/28/10) Visit Care Team Role Provider Type THANH Ge Attending Provider Advanced Service Writer Advisor Family Provider Primary Care Provider Referring Provider Specialty: [facility] Practice Address: [address] [place] [address], [facility] Email: [email or web address] Physical Therapy Initial Evaluation PT-OP-A Visit Information Start: 12/06/23 17:40 Freq: Status: Active Protocol: Document 12/12/23 08:13 SAK (Rec: 12/12/23 09:01 SAK [id number]) Out-Patient Physical Therapy Visit Information Visit Information Visit Type Initial Evaluation Visit Start Time 08:15 Visit Stop Time 09:01 Visit Number 1 Evaluation Information Evaluation Date 12/12/23 Precautions Precautions osteoporosis, diverticulitis, RA PT-OP-B Current Condition Start: 12/06/23 17:40 Freq: Status: Active Protocol: Document 12/12/23 08:13 SAK (Rec: 12/12/23 09:01 SAK [id number]) Current Condition History of Current Condition Onset Date 11/08/23 Current Complaints back pain History of Current Condition 2 falls over the past year. First [place] sidewalk [place] and broke hand. Second fall was tripping over stool left on floor by family member and fell on barstool. Min pain at this time, though increase last week when carrying heavy groceries. Uses ice if pain gets bad. Has been using spirometer to keep expanding lungs. Prior Treatments and Tests x-ray: 3 rib fractures 8,9,10 Future Testing and Treatments Planned will be seeing THANH Ge to see if there is any other medication she can take for osteoporosis Treatment Goals Patient/Caregiver Goals Joined a gym but concerned about being able to exercise safely , is going to start doing water aerobics. Wants to be able to do safely. Prior Functional Status Baseline Function- ADL's Independent Baseline Function- Mobility Independent Baseline Function- Gait indep Baseline Function- Work/School retired Current Functional Impairments (Reported) Functional Limitations- ADL's more cautious Functional Limitations- Mobility/Gait limited distance and tolerance Functional Limitations- Work/School retired Functional Limitations- Recreation/ none Hobbies PT-OP-C Subjective Start: 12/06/23 17:40 Freq: Status: Active Protocol: Document 12/12/23 08:13 SAK (Rec: 12/12/23 09:01 [facility] [id number]) OP-PT Pain Assessment Pain Assessment Grid Paper Pain Assessment Grid Completed Yes Location right ribs Intensity 6 Description Aching Frequency Occasional Pain Aggravating Factors Position,ADL's,Exercise, Lifting Pain Alleviating Factors Rest PT-OP-D Balance Start: 12/06/23 17:40 Freq: Status: Active Protocol: Document 12/12/23 08:13 SAK (Rec: 12/12/23 09:01 [facility] [id number]) OP-PT Balance Assessment Sitting Balance Static Sitting Balance Ability Good Standing Balance Static Standing Balance Ability Good Nettles Balance Assessment Evaluation Sitting to Standing Ability Independent w/out Hands Unsupported Stance Safely- 2 minutes Sitting Unsupported, Feet on Floor Safely- 2 minutes Standing to Sitting Ability Assist, Control w/Hands Transfer Ability Safely, Minimal Hand Use Unsupported Stance- Eyes Closed Safely, 10 seconds Unsupported Stance- Eyes Open Independent, 1 minute Reaching Forward Standing Confidently, 10 inches Pick- Up Object From Floor Supervision Look Behind Shoulder - Standing Shifts Weight Unilateral Turning 360 Degrees Turns , < 4 secs Unsupported Stance, Alternating Feet on (I)- 8 Steps in 20 secs Stair Unsupported Tandem Stance Small Step- 30 seconds Unilateral Leg Stance Lifts Leg/Holds 10 secs Total Score Nettles Total Score (out of 56 points) 50 Michelle Fall Scale Copyright Permission PT-OP-G Mobility & Gait Start: 12/06/23 17:40 Freq: Status: Active Protocol: Document 12/12/23 08:13 SAK (Rec: 12/12/23 09:01 [facility] [id number]) OP Mobility Evaluation Bed Mobility Rolling educated in log roll for spinal protection Supine to and from Sit indep Transfers Sit to Stand indep no UE's Functional Movements Lifting and Carrying painful OP Gait Assessment Gait Gait Assistance Required: Independent Assistive Devices Assistive Device None Gait Deviations General Gait Pattern Within Normal Limits Stair Climbing Evaluation Evaluation Level of Assist On Stairs Independent Devices Stair Climbing Assistive Devices None Technique/Endurance Stair Climbing Direction Ascend and Descend Stair Climbing Technique Step Over Step Number of Steps Climbed 4 Stair Climbing Set # Repetitions (reps) 4 Comments Stair Climbing Comments one railing PT-OP-H Neuro Start: 12/06/23 17:40 Freq: Status: Active Protocol: Document 12/12/23 08:13 [facility] (Rec: 12/12/23 09:01 [facility] [id number]) Sensation Evaluation Gross Sensation Gross Sensation WNL Vital Signs Blood Pressure Sitting Blood Pressure (90/60-120/80 mmHg) 136/80 H Blood Pressure Source Manual Cuff PT-OP-J Posture/Palpation/Skin Start: 12/06/23 17:40 Freq: Status: Active Protocol: Document 12/12/23 08:13 [facility] (Rec: 12/12/23 09:01 [facility] [id number]) Posture Evaluation Position Sitting Head/C-Spine Posture Forward Head T-Spine Posture Increased Kyphosis L-Spine Posture Flattened Shoulder Posture (L) Rounded,(R) Rounded Scapula Posture (L) Protracted,(R) Protracted Arm Posture (L) Internally Rotated,(R) Internally Rotated Palpation Assessment Location thoracic spine Palpation Findings Soft Tissue Tightness,Muscle Guarding,Tenderness PT-OP-K Range of Motion Start: 12/06/23 17:40 Freq: Status: Active Protocol: Document 12/12/23 08:13 VINI (Rec: 12/12/23 09:01 [facility] [id number]) Shoulder Goniometric Range of Motion Shoulder favian Shoulder ROM WFL Yes Elbow/Forearm Range of Motion Elbow/Forearm favian Elbow/Forearm ROM WFL Yes Hip Goniometric Range of Motion Hip favian Hip ROM WFL Yes PT-OP-M Strength Start: 12/06/23 17:40 Freq: Status: Active Protocol: Document 12/12/23 08:13 VINI (Rec: 12/12/23 09:01 [facility] [id number]) Trunk Strength Trunk Manual Muscle Testing Core Stabilization poor Shoulder Strength Shoulder Manual Muscle Testing favian Flexion 4 Good Extension 4 Good Abduction (C5) 4 Good Adduction 4 Good External Rotation 4 Good Internal Rotation 4 Good Horizontal Abduction 4 Good Horizontal Adduction 4 Good Elbow/Forearm Strength Elbow and Forearm Manual Muscle Testing favian Flexion (C6) 4 Good Extension (C7) 4 Good Wrist Strength Wrist Manual Muscle Testing favian Flexion (C7) 4 Good Extension (C6) 4 Good Hip Strength Hip Manual Muscle Testing favian Flexion (L2) 4- Good- Extension (S1) 4- Good- Adduction 4- Good- External Rotation 4- Good- Internal Rotation 4- Good- Knee Strength Knee Manual Muscle Testing favian Flexion (S2) 4+ Good+ Extension (L3) 4+ Good+ Ankle/Foot Strength Ankle and Foot Manual Muscle Testing favian Dorsiflexion (L4) 4+ Good+ Plantarflexion (S1) 4+ Good+ PT-OP-T Assessment and Plan Start: 12/06/23 17:40 Freq: Status: Active Protocol: Document 12/12/23 08:13 [facility] (Rec: 12/12/23 09:01 [facility] [id number]) Physical Therapy Assessment Rehab Potential Rehabilitation Potential Good Evaluation Complexity Number of Personal Factors/Comorbidities 1-2 Number of Body Systems Impaired 3 Clinical Presentation at Evaluation Evolving Impairments Impairments Activity Tolerance,Pain, Posture,Strength Other Concerns Barriers to Rehabilitation osteoporosis, age Goals Three Impairment Lack of regular exercise program Short Term Goal (STG) Instruct in gentle progressive individualized HEP including exercises and machines recommended for use at gym including spinal precautions STG Duration 01/11/24 Veterinary Parasitologist Goal (LTG) Patient to be independent and compliant with HEP and community-based exercise program without an increase in pain for assisted fitness and pain management. LTG Duration 02/11/24 Two Impairment limited activity tolerance Impairment Oswestry disability index score 27% Short Term Goal (STG) Decrease Oswestry disability index score to no greater than 15% as measure of improved activity tolerance STG Duration 01/11/24 Retirement Goal (LTG) Decrease score to no greater than 8% as measure of improved activity tolerance and quality of life LTG Duration 02/11/24 One Impairment pain thoracic spine especially with lifting Impairment as high as 6/10 Short Term Goal (STG) Decrease pain to no greater than 3/10 with all usual activities STG Duration 01/11/24 Retirement Goal (LTG) Decrease pain to no greater than 1-2/10 with all usual activities LTG Duration 02/11/24 Assessment Summary Assessment Patient presents to PT with function-limiting pain in thoracic region s/p rib fractures. Wants to be able to begin exercise program but hasn't done before and requires PT assistance to do safely with back protection principles in mind especially due to osteoporosis. She has strength and flexbility impairments but tested 50/56 on Nettles Balance testing indicating low fall risk. POC was discussed and patient was in agreement. Patient appears highly motivated. Physical Therapy Plan Frequency and Duration Frequency of Treatment 2x/Week Duration of treatment (weeks) 8 Plan of Care Start Date 12/12/23 Plan of Care End Date 02/11/24 Therapeutic Interventions Therapeutic Interventions Home Exercise Program,Manual Therapy,Patient/Caregiver Education,Self-Care/Home Management,Soft Tissue Mobilization,Taping, Therapeutic Activities, Therapeutic Exercises Modalities Cold Pack/Ice Massage,Electric Stimulation,Hot Packs, Ultrasound Next Visit Focus/Plan Next Note Type Treatment Note Next Visit Plan Review HEP, intiate gentle seated elliptical and strengthening exercises, manual therapy and modalities PRN.
--- NOTE | 2023-12-17 10:25 | PT.OTN ---
Current Diagnoses Age-related osteoporosis with current pathological fracture, unspecified site, initial encounter for fracture (12/17/23) Pleurodynia (12/17/23) Multiple fractures of ribs, bilateral, initial encounter for closed fracture (12/17/23) Unspecified fall, initial encounter (12/17/23) Physical Therapy Treatment Note PT-OP-A Visit Information Start: 12/06/23 17:40 Freq: Status: Active Protocol: Document 12/17/23 12:59 SAK (Rec: 12/17/23 13:51 SAK [id number]) Out-Patient Physical Therapy Visit Information Visit Information Visit Type Treatment Note Visit Start Time 13:00 Visit Number 2 Evaluation Information Evaluation Date 12/12/23 Precautions Precautions osteoporosis, diverticulitis, RA PT-OP-B Current Condition Start: 12/06/23 17:40 Freq: Status: Active Protocol: Document 12/17/23 12:59 SAK (Rec: 12/17/23 13:51 SAK [id number]) Current Condition History of Current Condition Onset Date 11/08/23 Current Complaints back pain History of Current Condition 2 falls over the past year. First [place] and [place] hand. Second fall was tripping over stool left on floor by family member and fell on barstool. Min pain at this time, though increase last week when carrying heavy groceries. Uses ice if pain gets bad. Has been using spirometer to keep expanding lungs. Prior Treatments and Tests x-ray: 3 rib fractures 8,9,10 Future Testing and Treatments Planned will be seeing THANH Ge to see if there is any other medication she can take for osteoporosis Treatment Goals Patient/Caregiver Goals Joined a gym but concerned about being able to exercise safely , is going to start doing water aerobics. Wants to be able to do safely. PT-OP-C Subjective Start: 12/06/23 17:40 Freq: Status: Active Protocol: Document 12/17/23 12:59 SAK (Rec: 12/17/23 13:51 SAK [id number]) OP-PT Subjective Patient Comments Patient Comments Patient reports went to geriatric water aerobics class and gentle yoga class with good tolerance. Unable to sit cross legged. PT-OP-D Balance Start: 12/06/23 17:40 Freq: Status: Active Protocol: Document 12/12/23 08:13 SAK (Rec: 12/12/23 09:01 [facility] [id number]) OP-PT Balance Assessment Sitting Balance Static Sitting Balance Ability Good Standing Balance Static Standing Balance Ability Good Nettles Balance Assessment Evaluation Sitting to Standing Ability Independent w/out Hands Unsupported Stance Safely- 2 minutes Sitting Unsupported, Feet on Floor Safely- 2 minutes Standing to Sitting Ability Assist, Control w/Hands Transfer Ability Safely, Minimal Hand Use Unsupported Stance- Eyes Closed Safely, 10 seconds Unsupported Stance- Eyes Open Independent, 1 minute Reaching Forward Standing Confidently, 10 inches Pick- Up Object From Floor Supervision Look Behind Shoulder - Standing Shifts Weight Unilateral Turning 360 Degrees Turns , < 4 secs Unsupported Stance, Alternating Feet on (I)- 8 Steps in 20 secs Stair Unsupported Tandem Stance Small Step- 30 seconds Unilateral Leg Stance Lifts Leg/Holds 10 secs Total Score Nettles Total Score (out of 56 points) 50 Michelle Fall Scale Copyright Permission PT-OP-G Mobility & Gait Start: 12/06/23 17:40 Freq: Status: Active Protocol: Document 12/12/23 08:13 [facility] (Rec: 12/12/23 09:01 [facility] [id number]) OP Mobility Evaluation Bed Mobility Rolling educated in log roll for spinal protection Supine to and from Sit indep Transfers Sit to Stand indep no UE's Functional Movements Lifting and Carrying painful OP Gait Assessment Gait Gait Assistance Required: Independent Assistive Devices Assistive Device None Gait Deviations General Gait Pattern Within Normal Limits Stair Climbing Evaluation Evaluation Level of Assist On Stairs Independent Devices Stair Climbing Assistive Devices None Technique/Endurance Stair Climbing Direction Ascend and Descend Stair Climbing Technique Step Over Step Number of Steps Climbed 4 Stair Climbing Set # Repetitions (reps) 4 Comments Stair Climbing Comments one railing PT-OP-H Neuro Start: 12/06/23 17:40 Freq: Status: Active Protocol: Document 12/12/23 08:13 [facility] (Rec: 12/12/23 09:01 [facility] [id number]) Sensation Evaluation Gross Sensation Gross Sensation WNL Vital Signs Blood Pressure Sitting Blood Pressure (90/60-120/80 mmHg) 136/80 H Blood Pressure Source Manual Cuff PT-OP-J Posture/Palpation/Skin Start: 12/06/23 17:40 Freq: Status: Active Protocol: Document 12/12/23 08:13 [facility] (Rec: 12/12/23 09:01 [facility] [id number]) Posture Evaluation Position Sitting Head/C-Spine Posture Forward Head T-Spine Posture Increased Kyphosis L-Spine Posture Flattened Shoulder Posture (L) Rounded,(R) Rounded Scapula Posture (L) Protracted,(R) Protracted Arm Posture (L) Internally Rotated,(R) Internally Rotated Palpation Assessment Location thoracic spine Palpation Findings Soft Tissue Tightness,Muscle Guarding,Tenderness PT-OP-K Range of Motion Start: 12/06/23 17:40 Freq: Status: Active Protocol: Document 12/12/23 08:13 [facility] (Rec: 12/12/23 09:01 [facility] [id number]) Shoulder Goniometric Range of Motion Shoulder favian Shoulder ROM WFL Yes Elbow/Forearm Range of Motion Elbow/Forearm favian Elbow/Forearm ROM WFL Yes Hip Goniometric Range of Motion Hip favian Hip ROM WFL Yes PT-OP-M Strength Start: 12/06/23 17:40 Freq: Status: Active Protocol: Document 12/12/23 08:13 [facility] (Rec: 12/12/23 09:01 [facility] [id number]) Trunk Strength Trunk Manual Muscle Testing Core Stabilization poor Shoulder Strength Shoulder Manual Muscle Testing favian Flexion 4 Good Extension 4 Good Abduction (C5) 4 Good Adduction 4 Good External Rotation 4 Good Internal Rotation 4 Good Horizontal Abduction 4 Good Horizontal Adduction 4 Good Elbow/Forearm Strength Elbow and Forearm Manual Muscle Testing favian Flexion (C6) 4 Good Extension (C7) 4 Good Wrist Strength Wrist Manual Muscle Testing favian Flexion (C7) 4 Good Extension (C6) 4 Good Hip Strength Hip Manual Muscle Testing favian Flexion (L2) 4- Good- Extension (S1) 4- Good- Adduction 4- Good- External Rotation 4- Good- Internal Rotation 4- Good- Knee Strength Knee Manual Muscle Testing favian Flexion (S2) 4+ Good+ Extension (L3) 4+ Good+ Ankle/Foot Strength Ankle and Foot Manual Muscle Testing favian Dorsiflexion (L4) 4+ Good+ Plantarflexion (S1) 4+ Good+ PT-OP-Q Treatments Start: 12/06/23 17:40 Freq: Status: Active Protocol: Document 12/17/23 12:59 SAK (Rec: 12/17/23 13:51 [facility] [id number]) Cardio Equipment Recumbent Stepper (Sci-Fit) Duration (Minutes) 5 Resistance 1 Seat Position 6 Gym Equipment Cable Column (Body Solid) lat pull Resistance 10 hip abd Resistance l10 Reps/Time 10x hip add Resistance 20 Reps/Time 10x quad extension Resistance 10 Reps/Time 10x hamstring curl Resistance 20 Reps/Time x10 Shuttle Recovery Bilateral Squats Resistance 50 Reps/Time 10x Therapeutic Exercises Supine Exercises bug Supine Exercise Name next session bridge Supine Exercise Name glut set build to small lift Reps/Minutes 10x figure 4 Reps/Minutes 2x30 LTR Reps/Minutes 10x windshield wiper Reps/Minutes 10x butterfly stretch Reps/Minutes 2x30 Prone Exercises piriformis stretch Reps/Minutes 2x30 Sitting Exercises sit to stand Sitting Exercise Name NEXT SESSION Standing Exercises shoulder ext Resistance L1 TB Reps/Minutes 10x row Resistance L1 TB Reps/Minutes 10x Self-Care/Home Management Treatment Education Patient Education Home Exercise Program,Joint Protection,Pain Management, Posture PT-OP-R Modalities Start: 12/06/23 17:40 Freq: Status: Active Protocol: Document 12/17/23 12:59 [facility] (Rec: 12/17/23 14:49 [facility] [id number]) Compression Pump Treatment Treatment Location Right Leg Pressure Amount (mmHg) (mmHG) 40 Inflation Time (Seconds) 30 Deflation Time (Seconds) 10 Treatment Tolerance Excellent Treatment Comments black foam and [employer] kidneys on foot and ankles PT-OP-T Assessment and Plan Start: 12/06/23 17:40 Freq: Status: Active Protocol: Document 12/17/23 12:59 [facility] (Rec: 12/17/23 13:51 [facility] [id number]) Physical Therapy Assessment Goals Three Impairment Lack of regular exercise program Short Term Goal (STG) Instruct in gentle progressive individualized HEP including exercises and machines recommended for use at gym including spinal precautions STG Duration 01/11/24 Halfway Goal (LTG) Patient to be independent and compliant with HEP and community-based exercise program without an increase in pain for medical terminologist fitness and pain management. LTG Duration 02/11/24 Two Impairment limited activity tolerance Impairment Oswestry disability index score 27% Short Term Goal (STG) Decrease Oswestry disability index score to no greater than 15% as measure of improved activity tolerance STG Duration 01/11/24 Halfway Goal (LTG) Decrease score to no greater than 8% as measure of improved activity tolerance and quality of life LTG Duration 02/11/24 One Impairment pain thoracic spine especially with lifting Impairment as high as 6/10 Short Term Goal (STG) Decrease pain to no greater than 3/10 with all usual activities STG Duration 01/11/24 Paper Box Maker Goal (LTG) Decrease pain to no greater than 1-2/10 with all usual activities LTG Duration 02/11/24 Progress Towards Goals Progress Towards Goals Progressing Toward Goals Assessment Summary Assessment Good tolerance for progression of ther ex. Patient attended gentle yoga and aqua aerobics with good tolerance. Moderate cues for postural alignment and core stabilization. Physical Therapy Plan Frequency and Duration Frequency of Treatment 2x/Week Duration of treatment (weeks) 8 Plan of Care Start Date 12/12/23 Plan of Care End Date 02/11/24 Therapeutic Interventions Therapeutic Interventions Home Exercise Program,Manual Therapy,Patient/Caregiver Education,Self-Care/Home Management,Soft Tissue Mobilization,Taping, Therapeutic Activities, Therapeutic Exercises Modalities Cold Pack/Ice Massage,Electric Stimulation,Hot Packs, Ultrasound Next Visit Focus/Plan Next Note Type Treatment Note Next Visit Plan Continue therapeutic exercise progression as tolerated with emphasis on spinal protection and stabilization.
--- NOTE | 2023-12-20 12:19 | PT.OTN ---
Current Diagnoses Age-related osteoporosis with current pathological fracture, unspecified site, initial encounter for fracture (12/20/23) Pleurodynia (12/20/23) Multiple fractures of ribs, bilateral, initial encounter for closed fracture (12/20/23) Unspecified fall, initial encounter (12/20/23) Physical Therapy Treatment Note PT-OP-A Visit Information Start: 12/06/23 17:40 Freq: Status: Active Protocol: Document 12/20/23 11:22 SW (Rec: 12/20/23 12:18 SW [id number]) Out-Patient Physical Therapy Visit Information Visit Information Visit Type Treatment Note Visit Start Time 11:17 Visit Stop Time 11:57 Visit Number 3 Number of DRY GOODS CLERK Visits 1 Precautions Precautions osteoporosis, diverticulitis, RA PT-OP-B Current Condition Start: 12/06/23 17:40 Freq: Status: Active Protocol: Document 12/17/23 12:59 SAK (Rec: 12/17/23 13:51 SAK [id number]) Current Condition History of Current Condition Onset Date 11/08/23 Current Complaints back pain History of Current Condition 2 falls over the past year. First [place] sidewalk [place] and broke hand. Second fall was tripping over stool left on floor by family member and fell on barstool. Min pain at this time, though increase last week when carrying heavy groceries. Uses ice if pain gets bad. Has been using spirometer to keep expanding lungs. Prior Treatments and Tests x-ray: 3 rib fractures 8,9,10 Future Testing and Treatments Planned will be seeing THANH Ge to see if there is any other medication she can take for osteoporosis Treatment Goals Patient/Caregiver Goals Joined a gym but concerned about being able to exercise safely , is going to start doing water aerobics. Wants to be able to do safely. PT-OP-C Subjective Start: 12/06/23 17:40 Freq: Status: Active Protocol: Document 12/20/23 11:22 SW (Rec: 12/20/23 12:18 SW [id number]) OP-PT Subjective Patient Comments Patient Comments Pt reports no soreness or pain post last session, tolerated well. PT-OP-D Balance Start: 12/06/23 17:40 Freq: Status: Active Protocol: Document 12/12/23 08:13 SAK (Rec: 12/12/23 09:01 [facility] [id number]) OP-PT Balance Assessment Sitting Balance Static Sitting Balance Ability Good Standing Balance Static Standing Balance Ability Good Nettles Balance Assessment Evaluation Sitting to Standing Ability Independent w/out Hands Unsupported Stance Safely- 2 minutes Sitting Unsupported, Feet on Floor Safely- 2 minutes Standing to Sitting Ability Assist, Control w/Hands Transfer Ability Safely, Minimal Hand Use Unsupported Stance- Eyes Closed Safely, 10 seconds Unsupported Stance- Eyes Open Independent, 1 minute Reaching Forward Standing Confidently, 10 inches Pick- Up Object From Floor Supervision Look Behind Shoulder - Standing Shifts Weight Unilateral Turning 360 Degrees Turns , < 4 secs Unsupported Stance, Alternating Feet on (I)- 8 Steps in 20 secs Stair Unsupported Tandem Stance Small Step- 30 seconds Unilateral Leg Stance Lifts Leg/Holds 10 secs Total Score Nettles Total Score (out of 56 points) 50 Michelle Fall Scale Copyright Permission PT-OP-G Mobility & Gait Start: 12/06/23 17:40 Freq: Status: Active Protocol: Document 12/12/23 08:13 VINI (Rec: 12/12/23 09:01 [facility] [id number]) OP Mobility Evaluation Bed Mobility Rolling educated in log roll for spinal protection Supine to and from Sit indep Transfers Sit to Stand indep no UE's Functional Movements Lifting and Carrying painful OP Gait Assessment Gait Gait Assistance Required: Independent Assistive Devices Assistive Device None Gait Deviations General Gait Pattern Within Normal Limits Stair Climbing Evaluation Evaluation Level of Assist On Stairs Independent Devices Stair Climbing Assistive Devices None Technique/Endurance Stair Climbing Direction Ascend and Descend Stair Climbing Technique Step Over Step Number of Steps Climbed 4 Stair Climbing Set # Repetitions (reps) 4 Comments Stair Climbing Comments one railing PT-OP-H Neuro Start: 12/06/23 17:40 Freq: Status: Active Protocol: Document 12/12/23 08:13 VINI (Rec: 12/12/23 09:01 [facility] [id number]) Sensation Evaluation Gross Sensation Gross Sensation WNL Vital Signs Blood Pressure Sitting Blood Pressure (90/60-120/80 mmHg) 136/80 H Blood Pressure Source Manual Cuff PT-OP-J Posture/Palpation/Skin Start: 12/06/23 17:40 Freq: Status: Active Protocol: Document 12/12/23 08:13 VINI (Rec: 12/12/23 09:01 [facility] [id number]) Posture Evaluation Position Sitting Head/C-Spine Posture Forward Head T-Spine Posture Increased Kyphosis L-Spine Posture Flattened Shoulder Posture (L) Rounded,(R) Rounded Scapula Posture (L) Protracted,(R) Protracted Arm Posture (L) Internally Rotated,(R) Internally Rotated Palpation Assessment Location thoracic spine Palpation Findings Soft Tissue Tightness,Muscle Guarding,Tenderness PT-OP-K Range of Motion Start: 12/06/23 17:40 Freq: Status: Active Protocol: Document 12/12/23 08:13 [facility] (Rec: 12/12/23 09:01 [facility] [id number]) Shoulder Goniometric Range of Motion Shoulder favian Shoulder ROM WFL Yes Elbow/Forearm Range of Motion Elbow/Forearm favian Elbow/Forearm ROM WFL Yes Hip Goniometric Range of Motion Hip favian Hip ROM WFL Yes PT-OP-M Strength Start: 12/06/23 17:40 Freq: Status: Active Protocol: Document 12/12/23 08:13 [facility] (Rec: 12/12/23 09:01 [facility] [id number]) Trunk Strength Trunk Manual Muscle Testing Core Stabilization poor Shoulder Strength Shoulder Manual Muscle Testing favian Flexion 4 Good Extension 4 Good Abduction (C5) 4 Good Adduction 4 Good External Rotation 4 Good Internal Rotation 4 Good Horizontal Abduction 4 Good Horizontal Adduction 4 Good Elbow/Forearm Strength Elbow and Forearm Manual Muscle Testing favian Flexion (C6) 4 Good Extension (C7) 4 Good Wrist Strength Wrist Manual Muscle Testing favian Flexion (C7) 4 Good Extension (C6) 4 Good Hip Strength Hip Manual Muscle Testing favian Flexion (L2) 4- Good- Extension (S1) 4- Good- Adduction 4- Good- External Rotation 4- Good- Internal Rotation 4- Good- Knee Strength Knee Manual Muscle Testing favian Flexion (S2) 4+ Good+ Extension (L3) 4+ Good+ Ankle/Foot Strength Ankle and Foot Manual Muscle Testing favian Dorsiflexion (L4) 4+ Good+ Plantarflexion (S1) 4+ Good+ PT-OP-Q Treatments Start: 12/06/23 17:40 Freq: Status: Active Protocol: Document 12/20/23 11:22 SW (Rec: 12/20/23 12:18 SW [id number]) Cardio Equipment Recumbent Stepper (Sci-Fit) Duration (Minutes) 5 Resistance 1 Seat Position 6 Gym Equipment Cable Column (Body Solid) lat pull Resistance 10 hip abd Resistance 10 Reps/Time 2x10 hip add Resistance 20 Reps/Time 2x10 quad extension Resistance 10 Reps/Time 2x10 hamstring curl Resistance 20 Reps/Time 2x10 Shuttle Recovery Bilateral Squats Resistance 50 Reps/Time 2 x 10 Therapeutic Exercises Supine Exercises TrA Supine Exercise Name Transverse abdominis activation, extended time for pt education Comments verbal/tactile cues Piriformis stretch Supine Exercise Name Piriformis stretch Reps/Minutes 2 x 30 bug Supine Exercise Name LE only Reps/Minutes 1x8, 1x5 Comments cues for core stabilization, fatigue with reps bridge Supine Exercise Name glute set> minimal lift Reps/Minutes x10, x5 figure 4 Reps/Minutes 2x30 LTR Reps/Minutes 10x windshield wiper Reps/Minutes 10x butterfly stretch Reps/Minutes 2x30 Sitting Exercises sit to stand Sitting Exercise Name STS- initiated in PT Resistance AROM Equipment Used Mesh chair Reps/Minutes x8 Comments cues for hip hinge mechanics PT-OP-R Modalities Start: 12/06/23 17:40 Freq: Status: Active Protocol: Document 12/17/23 12:59 SAK (Rec: 12/17/23 14:49 SAK [id number]) Compression Pump Treatment Treatment Location Right Leg Pressure Amount (mmHg) (mmHG) 40 Inflation Time (Seconds) 30 Deflation Time (Seconds) 10 Treatment Tolerance Excellent Treatment Comments black foam and [employer] kidneys on foot and ankles PT-OP-T Assessment and Plan Start: 12/06/23 17:40 Freq: Status: Active Protocol: Document 12/20/23 11:22 (Rec: 12/20/23 12:18 [id number]) Physical Therapy Assessment Goals Three Impairment Lack of regular exercise program Short Term Goal (STG) Instruct in gentle progressive individualized HEP including exercises and machines recommended for use at gym including spinal precautions STG Duration 01/11/24 Client Development Manager Goal (LTG) Patient to be independent and compliant with HEP and community-based exercise program without an increase in pain for skilled nursing fitness and pain management. LTG Duration 02/11/24 Two Impairment limited activity tolerance Impairment Oswestry disability index score 27% Short Term Goal (STG) Decrease Oswestry disability index score to no greater than 15% as measure of improved activity tolerance STG Duration 01/11/24 Assisted Goal (LTG) Decrease score to no greater than 8% as measure of improved activity tolerance and quality of life LTG Duration 02/11/24 One Impairment pain thoracic spine especially with lifting Impairment as high as 6/10 Short Term Goal (STG) Decrease pain to no greater than 3/10 with all usual activities STG Duration 01/11/24 Assisted Goal (LTG) Decrease pain to no greater than 1-2/10 with all usual activities LTG Duration 02/11/24 Assessment Summary Assessment Pt education on TrA mm for core stabilization. Initiated bugs this session for core strength, verbal/tactile cues required for core stabilization, LE only. Physical Therapy Plan Frequency and Duration Frequency of Treatment 2x/Week Duration of treatment (weeks) 8 Plan of Care Start Date 12/12/23 Plan of Care End Date 02/11/24 Therapeutic Interventions Therapeutic Interventions Home Exercise Program,Manual Therapy,Patient/Caregiver Education,Self-Care/Home Management,Soft Tissue Mobilization,Taping, Therapeutic Activities, Therapeutic Exercises Modalities Cold Pack/Ice Massage,Electric Stimulation,Hot Packs, Ultrasound Next Visit Focus/Plan Next Note Type Treatment Note Next Visit Plan Continue therapeutic exercise progression as tolerated with emphasis on spinal protection and stabilization.
--- NOTE | 2023-12-25 13:38 | PT.OTN ---
Current Diagnoses Age-related osteoporosis with current pathological fracture, unspecified site, initial encounter for fracture (12/25/23) Pleurodynia (12/25/23) Multiple fractures of ribs, bilateral, initial encounter for closed fracture (12/25/23) Unspecified fall, initial encounter (12/25/23) Physical Therapy Treatment Note PT-OP-A Visit Information Start: 12/06/23 17:40 Freq: Status: Active Protocol: Document 12/25/23 09:49 SW (Rec: 12/25/23 10:35 SW [id number]) Out-Patient Physical Therapy Visit Information Visit Information Visit Type Treatment Note Visit Start Time 09:45 Visit Stop Time 10:38 Visit Number 4 Number of RETAIL MANAGER IN TRAINING Visits 2 Precautions Precautions osteoporosis, diverticulitis, RA PT-OP-B Current Condition Start: 12/06/23 17:40 Freq: Status: Active Protocol: Document 12/17/23 12:59 SAK (Rec: 12/17/23 13:51 SAK [id number]) Current Condition History of Current Condition Onset Date 11/08/23 Current Complaints back pain History of Current Condition 2 falls over the past year. First [place] and [place] hand. Second fall was tripping over stool left on floor by family member and fell on barstool. Min pain at this time, though increase last week when carrying heavy groceries. Uses ice if pain gets bad. Has been using spirometer to keep expanding lungs. Prior Treatments and Tests x-ray: 3 rib fractures 8,9,10 Future Testing and Treatments Planned will be seeing THANH Ge to see if there is any other medication she can take for osteoporosis Treatment Goals Patient/Caregiver Goals Joined a gym but concerned about being able to exercise safely , is going to start doing water aerobics. Wants to be able to do safely. PT-OP-C Subjective Start: 12/06/23 17:40 Freq: Status: Active Protocol: Document 12/25/23 09:49 SW (Rec: 12/25/23 10:35 SW [id number]) OP-PT Subjective Patient Comments Patient Comments Pt reports discomfort post last session attributes to LTR , got better a few days later, then started to hurt again after a water aerobics exercise. PT-OP-D Balance Start: 12/06/23 17:40 Freq: Status: Active Protocol: Document 12/12/23 08:13 [facility] (Rec: 12/12/23 09:01 [facility] [id number]) OP-PT Balance Assessment Sitting Balance Static Sitting Balance Ability Good Standing Balance Static Standing Balance Ability Good Nettles Balance Assessment Evaluation Sitting to Standing Ability Independent w/out Hands Unsupported Stance Safely- 2 minutes Sitting Unsupported, Feet on Floor Safely- 2 minutes Standing to Sitting Ability Assist, Control w/Hands Transfer Ability Safely, Minimal Hand Use Unsupported Stance- Eyes Closed Safely, 10 seconds Unsupported Stance- Eyes Open Independent, 1 minute Reaching Forward Standing Confidently, 10 inches Pick- Up Object From Floor Supervision Look Behind Shoulder - Standing Shifts Weight Unilateral Turning 360 Degrees Turns , < 4 secs Unsupported Stance, Alternating Feet on (I)- 8 Steps in 20 secs Stair Unsupported Tandem Stance Small Step- 30 seconds Unilateral Leg Stance Lifts Leg/Holds 10 secs Total Score Nettles Total Score (out of 56 points) 50 Michelle Fall Scale Copyright Permission PT-OP-G Mobility & Gait Start: 12/06/23 17:40 Freq: Status: Active Protocol: Document 12/12/23 08:13 [facility] (Rec: 12/12/23 09:01 [facility] [id number]) OP Mobility Evaluation Bed Mobility Rolling educated in log roll for spinal protection Supine to and from Sit indep Transfers Sit to Stand indep no UE's Functional Movements Lifting and Carrying painful OP Gait Assessment Gait Gait Assistance Required: Independent Assistive Devices Assistive Device None Gait Deviations General Gait Pattern Within Normal Limits Stair Climbing Evaluation Evaluation Level of Assist On Stairs Independent Devices Stair Climbing Assistive Devices None Technique/Endurance Stair Climbing Direction Ascend and Descend Stair Climbing Technique Step Over Step Number of Steps Climbed 4 Stair Climbing Set # Repetitions (reps) 4 Comments Stair Climbing Comments one railing PT-OP-H Neuro Start: 12/06/23 17:40 Freq: Status: Active Protocol: Document 12/12/23 08:13 [facility] (Rec: 12/12/23 09:01 [facility] [id number]) Sensation Evaluation Gross Sensation Gross Sensation WNL Vital Signs Blood Pressure Sitting Blood Pressure (90/60-120/80 mmHg) 136/80 H Blood Pressure Source Manual Cuff PT-OP-J Posture/Palpation/Skin Start: 12/06/23 17:40 Freq: Status: Active Protocol: Document 12/12/23 08:13 SAK (Rec: 12/12/23 09:01 SAK [id number]) Posture Evaluation Position Sitting Head/C-Spine Posture Forward Head T-Spine Posture Increased Kyphosis L-Spine Posture Flattened Shoulder Posture (L) Rounded,(R) Rounded Scapula Posture (L) Protracted,(R) Protracted Arm Posture (L) Internally Rotated,(R) Internally Rotated Palpation Assessment Location thoracic spine Palpation Findings Soft Tissue Tightness,Muscle Guarding,Tenderness PT-OP-K Range of Motion Start: 12/06/23 17:40 Freq: Status: Active Protocol: Document 12/12/23 08:13 SAK (Rec: 12/12/23 09:01 SAK [id number]) Shoulder Goniometric Range of Motion Shoulder favian Shoulder ROM WFL Yes Elbow/Forearm Range of Motion Elbow/Forearm favian Elbow/Forearm ROM WFL Yes Hip Goniometric Range of Motion Hip favian Hip ROM WFL Yes PT-OP-M Strength Start: 12/06/23 17:40 Freq: Status: Active Protocol: Document 12/12/23 08:13 [facility] (Rec: 12/12/23 09:01 SAK [id number]) Trunk Strength Trunk Manual Muscle Testing Core Stabilization poor Shoulder Strength Shoulder Manual Muscle Testing favian Flexion 4 Good Extension 4 Good Abduction (C5) 4 Good Adduction 4 Good External Rotation 4 Good Internal Rotation 4 Good Horizontal Abduction 4 Good Horizontal Adduction 4 Good Elbow/Forearm Strength Elbow and Forearm Manual Muscle Testing favian Flexion (C6) 4 Good Extension (C7) 4 Good Wrist Strength Wrist Manual Muscle Testing favian Flexion (C7) 4 Good Extension (C6) 4 Good Hip Strength Hip Manual Muscle Testing favian Flexion (L2) 4- Good- Extension (S1) 4- Good- Adduction 4- Good- External Rotation 4- Good- Internal Rotation 4- Good- Knee Strength Knee Manual Muscle Testing favian Flexion (S2) 4+ Good+ Extension (L3) 4+ Good+ Ankle/Foot Strength Ankle and Foot Manual Muscle Testing favian Dorsiflexion (L4) 4+ Good+ Plantarflexion (S1) 4+ Good+ PT-OP-Q Treatments Start: 12/06/23 17:40 Freq: Status: Active Protocol: Document 12/25/23 09:49 SW (Rec: 12/25/23 10:35 SW [id number]) Cardio Equipment Recumbent Stepper (Sci-Fit) Duration (Minutes) 5 Resistance 1 Seat Position 6 Therapeutic Exercises Supine Exercises Piriformis stretch Supine Exercise Name Piriformis stretch Reps/Minutes 2 x 30 bridge Supine Exercise Name glute set Reps/Minutes x10 figure 4 Reps/Minutes 2x30 LTR Supine Exercise Name discontinued today, pt reports pain Sitting Exercises sit to stand Reps/Minutes x5 Standing Exercises shoulder ext Resistance L1 TB Reps/Minutes 10x row Resistance L1 TB Reps/Minutes 10x Manual Therapy Treatment Soft Tissue Mobilization glute/lumbar/HS origin Body Location Glute/lumbar paraspinals, HS Mobilization Type Myofascial Release,Sustained Pressure Intensity/Depth Superficial Body Position Sidelying Comments pillow support for positioning PT-OP-R Modalities Start: 12/06/23 17:40 Freq: Status: Active Protocol: Document 12/25/23 09:49 SW (Rec: 12/25/23 13:19 SW [id number]) Hot Pack/Cold Pack Treatment Hot Pack Location posterior chain Patient Position Supine Patient Tolerance Good Comments x15 min, bolster under LEs and x3 pillows for pt comfort, baker within reach PT-OP-T Assessment and Plan Start: 12/06/23 17:40 Freq: Status: Active Protocol: Document 12/25/23 09:49 SW (Rec: 12/25/23 10:35 SW [id number]) Physical Therapy Assessment Goals Three Impairment Lack of regular exercise program Short Term Goal (STG) Instruct in gentle progressive individualized HEP including exercises and machines recommended for use at gym including spinal precautions STG Duration 01/11/24 Long-Term Goal (LTG) Patient to be independent and compliant with HEP and community-based exercise program without an increase in pain for intermediate fitness and pain management. LTG Duration 02/11/24 Two Impairment limited activity tolerance Impairment Oswestry disability index score 27% Short Term Goal (STG) Decrease Oswestry disability index score to no greater than 15% as measure of improved activity tolerance STG Duration 01/11/24 Long-Term Goal (LTG) Decrease score to no greater than 8% as measure of improved activity tolerance and quality of life LTG Duration 02/11/24 One Impairment pain thoracic spine especially with lifting Impairment as high as 6/10 Short Term Goal (STG) Decrease pain to no greater than 3/10 with all usual activities STG Duration 01/11/24 Long-Term Goal (LTG) Decrease pain to no greater than 1-2/10 with all usual activities LTG Duration 02/11/24 Assessment Summary Assessment Continued stretching exercises and gentle stabilization, initiated manual therapy this session d/t pt pain level. Pt palpable tenderness to glute, HS, and lumbar tissues. Ended session with hot pack for pt comfort. Physical Therapy Plan Frequency and Duration Frequency of Treatment 2x/Week Duration of treatment (weeks) 8 Plan of Care Start Date 12/12/23 Plan of Care End Date 02/11/24 Therapeutic Interventions Therapeutic Interventions Home Exercise Program,Manual Therapy,Patient/Caregiver Education,Self-Care/Home Management,Soft Tissue Mobilization,Taping, Therapeutic Activities, Therapeutic Exercises Modalities Cold Pack/Ice Massage,Electric Stimulation,Hot Packs, Ultrasound Next Visit Focus/Plan Next Note Type Treatment Note Next Visit Plan Continue therapeutic exercise progression as tolerated with emphasis on spinal protection and stabilization.
--- NOTE | 2024-04-08 15:30 | PT.OPDS ---
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 Visit Number Visit Number 4 Discharge Summary PT-OP-B Current Condition Start: 12/06/23 17:40 Freq: Status: Active Protocol: Document 12/17/23 12:59 SAK (Rec: 12/17/23 13:51 SAK [id number]) Current Condition History of Current Condition Onset Date 11/08/23 Current Complaints back pain History of Current Condition 2 falls over the past year. First was [place] sidewalk [place] and broke hand. Second fall was tripping over stool left on floor by family member and fell on barstool. Min pain at this time, though increase last week when carrying heavy groceries. Uses ice if pain gets bad. Has been using spirometer to keep expanding lungs. Prior Treatments and Tests x-ray: 3 rib fractures 8,9,10 Future Testing and Treatments Planned will be seeing THANH Ge to see if there is any other medication she can take for osteoporosis Treatment Goals Patient/Caregiver Goals Joined a gym but concerned about being able to exercise safely , is going to start doing water aerobics. Wants to be able to do safely. PT-OP-C Subjective Start: 12/06/23 17:40 Freq: Status: Active Protocol: Document 12/25/23 09:49 SW (Rec: 12/25/23 10:35 SW [id number]) OP-PT Subjective Patient Comments Patient Comments Pt reports discomfort post last session attributes to LTR , got better a few days later, then started to hurt again after a water aerobics exercise. PT-OP-D Balance Start: 12/06/23 17:40 Freq: Status: Active Protocol: Document 12/12/23 08:13 SAK (Rec: 12/12/23 09:01 [facility] [id number]) OP-PT Balance Assessment Sitting Balance Static Sitting Balance Ability Good Standing Balance Static Standing Balance Ability Good Nettles Balance Assessment Evaluation Sitting to Standing Ability Independent w/out Hands Unsupported Stance Safely- 2 minutes Sitting Unsupported, Feet on Floor Safely- 2 minutes Standing to Sitting Ability Assist, Control w/Hands Transfer Ability Safely, Minimal Hand Use Unsupported Stance- Eyes Closed Safely, 10 seconds Unsupported Stance- Eyes Open Independent, 1 minute Reaching Forward Standing Confidently, 10 inches Pick- Up Object From Floor Supervision Look Behind Shoulder - Standing Shifts Weight Unilateral Turning 360 Degrees Turns , < 4 secs Unsupported Stance, Alternating Feet on (I)- 8 Steps in 20 secs Stair Unsupported Tandem Stance Small Step- 30 seconds Unilateral Leg Stance Lifts Leg/Holds 10 secs Total Score Nettles Total Score (out of 56 points) 50 Michelle Fall Scale Copyright Permission PT-OP-G Mobility & Gait Start: 12/06/23 17:40 Freq: Status: Active Protocol: Document 12/12/23 08:13 [facility] (Rec: 12/12/23 09:01 [facility] [id number]) OP Mobility Evaluation Bed Mobility Rolling educated in log roll for spinal protection Supine to and from Sit indep Transfers Sit to Stand indep no UE's Functional Movements Lifting and Carrying painful OP Gait Assessment Gait Gait Assistance Required: Independent Assistive Devices Assistive Device None Gait Deviations General Gait Pattern Within Normal Limits Stair Climbing Evaluation Evaluation Level of Assist On Stairs Independent Devices Stair Climbing Assistive Devices None Technique/Endurance Stair Climbing Direction Ascend and Descend Stair Climbing Technique Step Over Step Number of Steps Climbed 4 Stair Climbing Set # Repetitions (reps) 4 Comments Stair Climbing Comments one railing PT-OP-H Neuro Start: 12/06/23 17:40 Freq: Status: Active Protocol: Document 12/12/23 08:13 VINI (Rec: 12/12/23 09:01 [facility] [id number]) Sensation Evaluation Gross Sensation Gross Sensation WNL Vital Signs Blood Pressure Sitting Blood Pressure (90/60-120/80 mmHg) 136/80 H Blood Pressure Source Manual Cuff PT-OP-J Posture/Palpation/Skin Start: 12/06/23 17:40 Freq: Status: Active Protocol: Document 12/12/23 08:13 [facility] (Rec: 12/12/23 09:01 [facility] [id number]) Posture Evaluation Position Sitting Head/C-Spine Posture Forward Head T-Spine Posture Increased Kyphosis L-Spine Posture Flattened Shoulder Posture (L) Rounded,(R) Rounded Scapula Posture (L) Protracted,(R) Protracted Arm Posture (L) Internally Rotated,(R) Internally Rotated Palpation Assessment Location thoracic spine Palpation Findings Soft Tissue Tightness,Muscle Guarding,Tenderness PT-OP-K Range of Motion Start: 12/06/23 17:40 Freq: Status: Active Protocol: Document 12/12/23 08:13 [facility] (Rec: 12/12/23 09:01 [facility] [id number]) Shoulder Goniometric Range of Motion Shoulder favian Shoulder ROM WFL Yes Elbow/Forearm Range of Motion Elbow/Forearm favian Elbow/Forearm ROM WFL Yes Hip Goniometric Range of Motion Hip favian Hip ROM WFL Yes PT-OP-M Strength Start: 12/06/23 17:40 Freq: Status: Active Protocol: Document 12/12/23 08:13 [facility] (Rec: 12/12/23 09:01 [facility] [id number]) Trunk Strength Trunk Manual Muscle Testing Core Stabilization poor Shoulder Strength Shoulder Manual Muscle Testing favian Flexion 4 Good Extension 4 Good Abduction (C5) 4 Good Adduction 4 Good External Rotation 4 Good Internal Rotation 4 Good Horizontal Abduction 4 Good Horizontal Adduction 4 Good Elbow/Forearm Strength Elbow and Forearm Manual Muscle Testing favian Flexion (C6) 4 Good Extension (C7) 4 Good Wrist Strength Wrist Manual Muscle Testing favian Flexion (C7) 4 Good Extension (C6) 4 Good Hip Strength Hip Manual Muscle Testing favian Flexion (L2) 4- Good- Extension (S1) 4- Good- Adduction 4- Good- External Rotation 4- Good- Internal Rotation 4- Good- Knee Strength Knee Manual Muscle Testing favian Flexion (S2) 4+ Good+ Extension (L3) 4+ Good+ Ankle/Foot Strength Ankle and Foot Manual Muscle Testing favian Dorsiflexion (L4) 4+ Good+ Plantarflexion (S1) 4+ Good+ PT-OP-T Assessment and Plan Start: 12/06/23 17:40 Freq: Status: Active Protocol: Document 12/25/23 09:49 ZULMA (Rec: 12/25/23 10:35 SW [id number]) Physical Therapy Assessment Goals Three Impairment Lack of regular exercise program Short Term Goal (STG) Instruct in gentle progressive individualized HEP including exercises and machines recommended for use at gym including spinal precautions STG Duration 01/11/24 Event Attendant Goal (LTG) Patient to be independent and compliant with HEP and community-based exercise program without an increase in pain 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 LTG Duration 02/11/24 Two Impairment limited activity tolerance Impairment Oswestry disability index score 27% Short Term Goal (STG) Decrease Oswestry disability index score to no greater than 15% as measure of improved activity tolerance STG Duration 01/11/24 Event Attendant Goal (LTG) Decrease score to no greater than 8% as measure of improved activity tolerance and quality of life LTG Duration 02/11/24 One Impairment pain thoracic spine especially with lifting Impairment as high as 6/10 Short Term Goal (STG) Decrease pain to no greater than 3/10 with all usual activities STG Duration 01/11/24 Event Attendant Goal (LTG) Decrease pain to no greater than 1-2/10 with all usual activities LTG Duration 02/11/24 Assessment Summary Assessment Continued stretching exercises and gentle stabilization, initiated manual therapy this session d/t pt pain level. Pt palpable tenderness to glute, HS, and lumbar tissues. Ended session with hot pack for pt comfort. Physical Therapy Plan Frequency and Duration Frequency of Treatment 2x/Week Duration of treatment (weeks) 8 Plan of Care Start Date 12/12/23 Plan of Care End Date 02/11/24 Therapeutic Interventions Therapeutic Interventions Home Exercise Program,Manual Therapy,Patient/Caregiver Education,Self-Care/Home Management,Soft Tissue Mobilization,Taping, Therapeutic Activities, Therapeutic Exercises Modalities Cold Pack/Ice Massage,Electric Stimulation,Hot Packs, Ultrasound Next Visit Focus/Plan Next Note Type Treatment Note Next Visit Plan Continue therapeutic exercise progression as tolerated with emphasis on spinal protection and stabilization.
== END 2024-04-22 13:25 | disposition home or self-care (01) ==
LOC: PHYS 09:45
PROVIDERS: Family Provider Internal Medicine; PCP Internal Medicine; Referring Provider Internal Medicine; Visit Provider Internal Medicine
DX: S22.43XA Multiple fractures of ribs, bilateral, initial encounter for closed fracture (principal); R07.81 Pleurodynia; W19.XXXA Unspecified fall, initial encounter; M80.00XA Age-related osteoporosis with current pathological fracture, unspecified site, initial encounter for fracture
CPT/HCPCS: 97110; 97140; 97162; 97535

== ENCOUNTER → 2024-02-20 16:20 | Outpatient (CLI) | payer MEDICARE, SELFPAY ==
[2022-07-27 18:46] VITALS: BMI 20.5
[2024-02-20 17:12] LABS: Add Manual Diff / Slide Review NO; Basophils Absolute Auto 100 /uL (0-100); Basophils Percent Auto 0.9 % (0-2); Eosinophils Absolute Auto 100 /uL (0-450); Eosinophils Percent Auto 0.8 % (2-4); Hematocrit 37.5 % (36-46); Hemoglobin 12.3 g/dL (12.0-16.0); Lymphocytes Absolute Auto 2500 /uL (1100-4500); Lymphocytes Percent Auto 27.1 % (25-40); Mean Corpuscular HGB Conc 32.7 % (30-36); Mean Corpuscular Volume 79.4 fL (80-100); Monocytes Absolute Auto 1100 /uL (0-900); Monocytes Percent Auto 12.2 % (3-14); Neutrophils Absolute Auto 5500 /uL (1500-7000); Platelet Count 263 X10^3/uL (150-400); Red Blood Cell Count 4.72 X10^6/uL (4.0-5.2); Red Cell Distribution Width 14.4 % (11.6-14.8); White Blood Cell Count 9.3 X10^3/uL (4.5-11.0)
[2024-02-20 17:31] LABS: Alanine Aminotransferase 19 IU/L (<35); Albumin 4.4 g/dL (3.5-5.0); Albumin Globulin Ratio 1.3 (1.0-2.8); Alkaline Phosphatase 67 U/L (38-126); Aspartate Aminotransferase 31 IU/L (14-36); BUN Creatinine Ratio 24.4 (6-22); Bilirubin Total 0.6 mg/dL (0.2-1.3); Blood Urea Nitrogen 20 mg/dL (7-17); Calcium 9.6 mg/dL (8.4-10.2); Carbon Dioxide 25 mmol/L (22-32); Chloride 106 mmol/L (98-107); Estimated Glomerular Filt Rate > 60 mL/min (>60); Globulin 3.3 g/dL (1.7-4.1); Glucose 92 mg/dL (80-110); HEMOLYSIS < 15 (0-50); Potassium 4.4 mmol/L (3.4-5.1); Sodium 136 mmol/L (137-145); Total Protein 7.7 g/dL (6.3-8.2)
[2024-02-20 18:01] LABS: TSH w/ Reflex to FT4 0.96 uIU/mL (0.47-4.68)
== END ==
PROVIDERS: Family Provider Internal Medicine; PCP Internal Medicine; Referring Provider Internal Medicine; Visit Provider Internal Medicine
DX: R41.0 Disorientation, unspecified (principal)
CPT/HCPCS: 36415; 80053; 84443; 85025

== ENCOUNTER → 2024-02-25 14:35 | Outpatient (CLI) | payer MEDICARE, SELFPAY ==
[2022-07-27 18:46] VITALS: BMI 20.5
--- NOTE | 2024-02-25 16:00 | DI.MRI.S_ITS ---
PROCEDURE: MR HEAD/BRAIN WO/W CON INDICATIONS: CONFUSION TECHNIQUE: Noncontrast axial T1 spin echo, axial T2 fast spin echo, sagittal and axial FLAIR, coronal T2 fast spin echo, axial gradient echo, axial diffusion and ADC through the brain. After the administration of contrast, axial and coronal and sagittal T1 spin echo with fat saturation through the brain. COMPARISON: [facility], MR, MR BRAIN WITHOUT CONTRAST, 08/03/2022, 7:59. [facility], CT, CT ANGIO HEAD AND NECK, 08/02/2022, 14:49. FINDINGS: Image quality: Excellent. CSF spaces: Basal cisterns are patent. No extra-axial fluid collections. Ventricles are normal in size and shape. Brain: No midline shift. No intracranial bleeds or masses. No abnormal intracranial enhancement. There is cerebral volume loss for age. There is periventricular white matter chronic small vessel ischemic change. The brainstem appears normal. Diffusion-weighted images demonstrate no acute infarct. Old left cerebellar infarction.. Normal intravascular flow voids are present. Skull and face: Calvarial marrow is normal in signal. Orbits appear normal. Sinuses: Sinuses demonstrate minimal scattered mucosal thickening without fluid levels. IMPRESSION: 1. No acute intracranial process. 2. Moderate atrophy and chronic microvascular ischemic changes. Dictated by: Lyla Montana M.D. on 02/25/2024 at 17:36 Approved by: Lyla Montana M.D. on 02/25/2024 at 17:37
== END ==
PROVIDERS: Family Provider Internal Medicine; PCP Internal Medicine; Referring Provider Internal Medicine; Visit Provider Internal Medicine
DX: R41.0 Disorientation, unspecified (principal)
CPT/HCPCS: 70553; A9579